=== PATIENT | female | born 1950 | race Caucasian/White ===

== ENCOUNTER → 2017-01-15 | Outpatient (CLI) | payer BC ==
[~2017-01-15] MED LIST: ATV5 PO; CPR500 PO; MRLP17X PO; ONDA4TAB65 SL; [UNRECOGNIZED DRUG - CODE] PO
--- NOTE | 2017-01-15 14:00 | MAMMOGRAPHY REPORT ---
BILATERAL DIGITAL DIAGNOSTIC MAMMOGRAM TOMOSYNTHESIS WITH CAD: 01/15/2017 CLINICAL HISTORY: Asymptomatic. Personal history of left breast cancer status post treatment. TECHNIQUE: Bilateral breast tomosynthesis in addition to standard 2D mammography was performed. Curr ent study was also evaluated with a Computer Aided Detection (CAD) system. COMPARISON: Comparison is made to exams dated: 01/14/2016 mammogram, 08/12/2015 mammogram, 01/04/2015 m ammogram, and 12/31/2012 mammogram - [facility]. BREAST COMPOSITION: There are scattered areas of fibroglandular density in both breasts. FINDINGS: 2 surgical clips project near the left pectoralis muscle on the MLO view, stable compared to prior exams and denoting the site of the patient's prior lumpectomy. There is a stable intramamm steve lymph node in the lateral left breast. No new suspicious mass, architectural distortion or clus ter of microcalcifications is seen bilaterally. IMPRESSION: ACR BI-RADS CATEGORY 2: BENIGN Stable bilateral mammograms, without mammographic evidence of malignancy. Annual bilateral mammogra phy is recommended in one year, and would recommend remaining a diagnostic patient, given the person al history of breast cancer, in case any additional mammographic views and/or ultrasound may be need ed. These results and recommendations were discussed with the patient at the time of the exam. Approximately 10% of breast cancers are not detected with mammography. A negative mammographic repor t should not delay biopsy if a clinically suggestive mass is present. Janny Maria M.D. ay/:01/15/2017 10:17:40 Sleep Technician: Tabitha MCCULLOUGH)(Andreina), [facility] letter sent: Normal 1/2 BI-RADS Code: ACR BI-RADS Category 2: Benign
== END | disposition home or self-care (01) ==
LOC: C.MAMM 08:50
PROVIDERS: ATTEND Obstetrics & Gynecology
DX: Z85.3 Personal history of malignant neoplasm of breast (principal)

== ENCOUNTER → 2017-07-25 | Outpatient (CLI) | payer OTHER, MEDICARE ==
[2017-07-25 11:14] LABS: BASO % 0.8 %; BASO ABS # 0.03 K/uL (0-0.2); COMPLETE YES; EOS % 1.8 %; HEMATOCRIT 39.8 % (37-47); IG% 0.3 %; LYMPH % 28.9 %; LYMPH ABS # 1.11 K/uL (1.2-3.4); MEAN CELL VOLUME 91.7 fL (80-100); MEAN CORPUSCULAR HEMOGLOBIN 30.6 pg (25-34); MEAN CORPUSCULAR HGB CONC 33.4 g/dl (32-36); MONO % 7.3 %; NEUT % 60.9 %; PLATELET COUNT 285 K/uL (130-400); RED BLOOD COUNT 4.34 M/uL (4.2-5.4); WHITE BLOOD COUNT 3.84 K/uL (4.8-10.8)
[2017-07-25 11:29] LABS: ALT/SGPT 20 U/L (12-78); AST/SGOT 10 U/L (15-37); BLOOD UREA NITROGEN 13 mg/dl (7-18); BUN/CREATININE RATIO 16.4 (10-20); CALCIUM 8.7 mg/dl (8.5-10.1); CARBON DIOXIDE 28 mmol/L (21-32); CHLORIDE 97 mmol/L (98-107); CREATININE 0.79 mg/dl (0.60-1.20); GLUCOSE 100 mg/dl (70-99); SODIUM 131 mmol/L (136-145)
[2017-07-25 11:39] LABS: ALB/GLOB RATIO 1.2 (0.9-2); ALKALINE PHOSPHATASE 99 U/L (45-117)
== END | disposition home or self-care (01) ==
LOC: C.LABBC 07:51
PROVIDERS: ATTEND Psychiatry & Neurology Neurology
DX: G50.0 Trigeminal neuralgia (principal)

== ENCOUNTER → 2017-08-30 | Outpatient (CLI) | payer OTHER, MEDICARE ==
[~2017-08-30] MED LIST changes: +IBUP-1450 PO
== END | disposition home or self-care (01) ==
LOC: C.LABBC 09:11
PROVIDERS: ATTEND Psychiatry & Neurology Neurology
DX: G50.0 Trigeminal neuralgia (principal)

== ENCOUNTER 2017-09-01 07:57 | Emergency (ER) | payer OTHER, MEDICARE ==
[~2017-09-01] VITALS: Ht 167.6 cm; Wt 82.0 kg
[~2017-09-01 07:57] MED LIST changes: -IBUP-1450 PO
[2017-09-01 08:01] VITALS: TEMP 36.8; Ht 167.6 cm; Wt 82.0 kg
[2017-09-01] MEDS ORDERED: NITROGLYCERIN 0.4 MG SL PER TAB CHARGE SL STA (08:13)
[2017-09-01] MEDS ORDERED: ASPIRIN 324 MG CHEW PO STA (08:13)
[2017-09-01] MEDS ORDERED: ALUMINUM/MAGNESIUM SUSP 30 ML UDC PO STA (08:46)
[2017-09-01] MEDS ORDERED: LIDOCAINE HCL 2% VISC SOLN 20 ML UDC PO STA (08:46)
--- NOTE | 2017-09-01 09:14 | DIAGNOSTIC IMAGING REPORT ---
CHEST 2 VIEWS ROUTINE CLINICAL HISTORY: chest pain dyspnea COMPARISON STUDY: March 2015 FINDINGS: The bones soft tissues and hemidiaphragms are normal. The cardiomediastinal silhouette is normal. The lungs are clear. The pulmonary vasculature is normal. IMPRESSION: Negative chest. The above report was generated using voice recognition software. It may contain grammatical, syntax or spelling errors. Electronically signed by: Primo Giles M.D. 09/01/2017 9:13 AM Dictated Date/Time: 09/01/2017 9:13 AM
[2017-09-01 09:18] LABS: BASO % 0.2 %; BASO ABS # 0.01 K/uL (0-0.2); COMPLETE YES; EOS % 0.2 %; HEMATOCRIT 37.3 % (37-47); IG% 0.3 %; LYMPH % 14.8 %; LYMPH ABS # 0.95 K/uL (1.2-3.4); MEAN CELL VOLUME 88.8 fL (80-100); MEAN CORPUSCULAR HEMOGLOBIN 31.4 pg (25-34); MEAN CORPUSCULAR HGB CONC 35.4 g/dl (32-36); MEAN PLATELET VOLUME 9.1 fL (7.4-10.4); MONO % 6.1 %; NEUT % 78.4 %; PLATELET COUNT 277 K/uL (130-400); WHITE BLOOD COUNT 6.41 K/uL (4.8-10.8)
[2017-09-01 09:31] LABS: PARTIAL THROMBOPLASTIN RATIO 1.1; PROTHROMBIN TIME (PATIENT) 10.7 SECONDS (9.0-12.0)
[2017-09-01 09:41] LABS: ALKALINE PHOSPHATASE 104 U/L (45-117); ALT/SGPT 18 U/L (12-78); AST/SGOT 15 U/L (15-37)
[2017-09-01] MEDS ORDERED: IBUPROFEN 600 MG TAB PO STA (11:09)
[2017-09-01] MEDS ORDERED: IBUP-1450 PO (11:11)
--- NOTE | 2017-09-01 11:11 | EMERGENCY ROOM VISIT NOTE ---
ED Visit Note First contact with patient: 08:02 67-year-old female with substernal chest pain was fully by Cristy huizar PA-C. Please see her note. I also independently evaluated the patient. The patient has reproducible pain on palpation over the midsternum. This is most consistent with costochondritis. Troponins and EKG are negative. I believe the patient is safe to return home. She was started on ibuprofen here and will continue that medication at home.
--- NOTE | 2017-09-01 11:13 | EMERGENCY ROOM VISIT NOTE ---
History First contact with patient: 08:02 Chief Complaint: CHEST PAIN Stated Complaint: CHEST PAINS Nursing Triage Summary: pt had sudden onset of chest pain non radiating starting yesterday at 1000 pain has been constant, nonradiating pt to Peptol Bismol pt is unable to explain pain denies n/v or sob History of Present Illness The patient is a 67 year old female who presents to the Emergency Room with complaints of substernal chest pain. The patient states she has abrupt onset of the pain yesterday at 10 AM. The patient states it has been mostly constant since that time. She rates it at a 5 out of 10. The patient denies any radiation of the pain. The patient denies any shortness of breath. The patient denies any nausea or vomiting. The patient denies any cough, fever or any upper respiratory symptoms. The patient denies any heart palpitations. The patient denies any recent leg pain. The patient denies any history of hypertension or hyperlipidemia. She is a nonsmoker. The patient does admit to history of pleuritic chest pain but this is different. The patient's father at age 56 and had multiple heart attacks and stroke prior to his . Review of Systems 10 system review was performed and was negative unless stated otherwise history of present illness. Past Medical/Surgical History Medical Problems: (1) Breast cancer (2) Nasima-Falcon virus infection (3) Mitral valve prolapse Social History Smoking Status: Never Smoker Alcohol Use: none Drug Use: none Marital Status: Housing Status: lives alone Occupation Status: retired Current/Historical Medications Scheduled Carbamazepine (Carbatrol ER), 300 MG PO TID Lorazepam (Ativan *), 0.5 MG PO Q6HR PRN Scheduled PRN Ondansetron Hcl (Zofran), 4 MG SL Q6HR PRN Physical Exam Vital Signs Date Time Temp Pulse Resp B/P (MAP) Pulse Ox O2 Delivery O2 Flow Rate FiO2 09/01/17 10:37 78 20 112/92 99 Room Air 09/01/17 09:18 85 18 134/57 99 Room Air 09/01/17 08:28 87 20 156/85 98 Room Air 09/01/17 08:06 79 09/01/17 08:01 36.8 84 20 166/102 98 Room Air Physical Exam GENERAL: 67-year-old white female appears in no acute distress. MENTAL Status: Alert and oriented 3. EYES: PERRLA. EOMs intact. EARS: Canals clear. TMs without fluid level noted. NECK: Supple, no lymphadenopathy noted. No carotid bruits noted. LUNGS: Clear auscultation without wheezes rales or rhonchi. CARDIAC: Regular rate and rhythm without murmur. Pulses is full and equal throughout. CHEST WALL: The patient does have some tenderness to palpation over the lower sternum at the area of her pain. Remainder chest wall is nontender. ABDOMEN: Positive bowel sounds all 4 quadrants. Soft, nontender to palpation without organomegaly or masses. NEURO:Cranial nerves two through 12 intact. Cerebellar function intact with [id number]. Fine motor intact with alternating finger motions. Medical Decision & Procedures ER Provider Diagnostic Interpretation: CHEST 2 VIEWS ROUTINE CLINICAL HISTORY: chest pain dyspnea COMPARISON STUDY: March 2015 FINDINGS: The bones soft tissues and hemidiaphragms are normal. The cardiomediastinal silhouette is normal. The lungs are clear. The pulmonary vasculature is normal. IMPRESSION: Negative chest. The above report was generated using voice recognition software. It may contain grammatical, syntax or spelling errors. Electronically signed by: Primo Giles M.D. 09/01/2017 9:13 AM Dictated Date/Time: 09/01/2017 9:13 AM Laboratory Results 09/01/17 08:10 Red Blood Count 4.20, Mean Corpuscular Volume 88.8, Mean Corpuscular Hemoglobin 31.4, Mean Corpuscular Hemoglobin Concent 35.4, Mean Platelet Volume 9.1, Neutrophils (%) (Auto) 78.4, Lymphocytes (%) (Auto) 14.8, Monocytes (%) (Auto) 6.1, Eosinophils (%) (Auto) 0.2, Basophils (%) (Auto) 0.2, Neutrophils # (Auto) 5.03, Lymphocytes # (Auto) 0.95, Monocytes # (Auto) 0.39, Eosinophils # (Auto) 0.01, Basophils # (Auto) 0.01 Test 09/01/17 08:10 09/01/17 10:10 White Blood Count 6.41 K/uL (4.8-10.8) Red Blood Count 4.20 M/uL (4.2-5.4) Hemoglobin 13.2 g/dL (12.0-16.0) Hematocrit 37.3 % (37-47) Mean Corpuscular Volume 88.8 fL (80-100) Mean Corpuscular Hemoglobin 31.4 pg (25-34) Mean Corpuscular Hemoglobin Concent 35.4 g/dl (32-36) Platelet Count 277 K/uL (130-400) Mean Platelet Volume 9.1 fL (7.4-10.4) Neutrophils (%) (Auto) 78.4 % Lymphocytes (%) (Auto) 14.8 % Monocytes (%) (Auto) 6.1 % Eosinophils (%) (Auto) 0.2 % Basophils (%) (Auto) 0.2 % Neutrophils # (Auto) 5.03 K/uL (1.4-6.5) Lymphocytes # (Auto) 0.95 K/uL (1.2-3.4) Monocytes # (Auto) 0.39 K/uL (0.11-0.59) Eosinophils # (Auto) 0.01 K/uL (0-0.5) Basophils # (Auto) 0.01 K/uL (0-0.2) RDW Standard Deviation 41.7 fL (36.4-46.3) RDW Coefficient of Variation 12.9 % (11.5-14.5) Immature Granulocyte % (Auto) 0.3 % Immature Granulocyte # (Auto) 0.02 K/uL (0.00-0.02) Prothrombin Time 10.7 SECONDS (9.0-12.0) Prothromb Time International Ratio 1.0 (0.9-1.1) Activated Partial Thromboplast Time 27.5 SECONDS (21.0-31.0) Partial Thromboplastin Ratio 1.1 D-Dimer 270 ug/L FEU (0-500) Total Bilirubin 0.4 mg/dl (0.2-1) Direct Bilirubin < 0.1 mg/dl (0-0.2) Aspartate Amino Transf (AST/SGOT) 15 U/L (15-37) Alanine Aminotransferase (ALT/SGPT) 18 U/L (12-78) Alkaline Phosphatase 104 U/L (45-117) Total Creatine Kinase 61 U/L (26-192) Creatine Kinase MB 0.6 ng/ml (0.5-3.6) Creatine Kinase MB Ratio 1.0 (0-3.0) Pro-B-Type Natriuretic Peptide 178 pg/ml (0-900) Total Protein 7.3 gm/dl (6.4-8.2) Albumin 4.0 gm/dl (3.4-5.0) Lipase 131 U/L (73-393) Troponin I < 0.015 ng/ml (0-0.045) Medications Administered Medications (Trade) Dose Ordered Sig/Johana Route Start Time Stop Time Status Last Admin Dose Admin Aspirin (Aspirin Chew) 324 mg NOW STAT PO 09/01/17 08:13 09/01/17 08:20 DC 09/01/17 08:26 324 MG Nitroglycerin (Nitrostat Tab) 0.4 mg NOW STAT SL 09/01/17 08:13 09/01/17 08:20 DC 09/01/17 08:13 0.4 MG Al Hydroxide/Mg Hydroxide (Maalox Susp) 30 ml NOW STAT PO 09/01/17 08:46 09/01/17 08:48 DC 09/01/17 09:15 30 ML ED Course EMR and medication list were reviewed. IV access was obtained. The patient was placed on a monitor and continuous pulse ox. The patient was given 324 mg of aspirin and nitroglycerin 0.4 mg sublingual. The patient did not have relief of her pain but refused any additional nitroglycerin. The patient was then given Maalox by mouth. She states she is allergic to dental lidocaine. CBC and differential, coags, CK-MB, renal profile, LFTs and lipase levels, urinalysis, troponin, d-dimer was ordered. Chest x-ray was ordered and interpreted by the radiologist and myself as above. EKG was ordered and interpreted as above without any acute findings. The patient states that she had a lab drawn yesterday for her Carbatrol level. She wants to know the level. He looked it up in the EMR and it was 10.4 which were within normal limits. Gen. reviewed and were within normal limits. Troponin 2 were normal. The patient still was in pain on reevaluation and therefore was given Motrin 600 mg by mouth. The patient was independently evaluated by Dr. Myers who agree with treatment plan. The patient was discharged home in stable condition with a friend driving. Medical Decision Differential diagnosis include costochondritis, PE, pneumonia, pleuritic chest pain, [place], bronchitis [place] Drug Monitoring Program Search Results: patient reviewed within database Medication Reconcilliation Current Medication List: was personally reviewed by me Blood Pressure Screening Patient's blood pressure: Normal blood pressure Impression Primary Impression: Acute costochondritis Departure Information Dispostion Home / Self-Care Condition GOOD Prescriptions Ibuprofen (MOTRIN) 600 Mg Tab 600 MG PO Q6H Y for Pain, #30 TAB TAKE WITH FOOD Prov: Eneida Giles PA-C 09/01/17 Referrals Padmini HewittD.ODebbie (PCP) Forms Call Back Authorization, HOME CARE DOCUMENTATION FORM, IMPORTANT VISIT INFORMATION Patient Instructions ED Chest Pain Costochondritis, [facility] Additional Instructions Take ibuprofen 600 mg every 6 hours with food for pain. May try warm compresses intermittently to affected area. Avoid any strenuous lifting with her upper body until symptoms have resolved. Follow-up with your family doctor in 3-4 days for recheck. If symptoms worsen in the interim, return to ER. If he would experience any severe chest pain, numbness and tingling in extremities , jaw pain, shortness of breath call 911.
[2017-09-01 11:26] VITALS: BP 126/72; PULSE 95; O2SAT 98
== END 2017-09-01 11:28 | disposition home or self-care (01) ==
LOC: C.ED 07:59 → C.EDA 11:28
DX: M94.0 Chondrocostal junction syndrome [Tietze] (principal); I34.1 Nonrheumatic mitral (valve) prolapse; Z85.3 Personal history of malignant neoplasm of breast

== ENCOUNTER → 2017-12-05 | Outpatient (CLI) | payer OTHER, MEDICARE ==
[~2017-12-05] MED LIST changes: -CPR500 PO; +IBUP-1450 PO; -MRLP17X PO
--- NOTE | 2017-12-05 10:39 | DIAGNOSTIC IMAGING REPORT ---
R WRIST W/NAVICULAR MIN 3 VIEWS CLINICAL HISTORY: RIGHT WRIST PAIN TRAUMA ONE HALF MONTHS AGO COMPARISON: None. DISCUSSION: The bones and joint spaces appear intact. There is no evidence of fracture, dislocation or bony disease. 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 There are no erosive changes. IMPRESSION: 1. No acute fractures. 2. No erosive changes 3. 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 12/05/2017 10:38 AM Dictated Date/Time: 12/05/2017 10:37 AM
== END | disposition home or self-care (01) ==
LOC: C.RADBC 10:13
PROVIDERS: ATTEND Family Medicine
DX: S69.91XA Unspecified injury of right wrist, hand and finger(s), initial encounter (principal); X58.XXXA Exposure to other specified factors, initial encounter

== ENCOUNTER → 2018-02-08 | Outpatient (CLI) | payer OTHER, MEDICARE ==
--- NOTE | 2018-02-08 15:38 | MAMMOGRAPHY REPORT ---
BILATERAL DIGITAL DIAGNOSTIC MAMMOGRAM TOMOSYNTHESIS WITH CAD: 02/08/2018 CLINICAL HISTORY: Personal history of breast cancer. Asymptomatic. TECHNIQUE: Breast tomosynthesis in addition to standard 2D mammography was performed. Current study was also evaluated with a Computer Aided Detection (CAD) system. Bilateral CC and MLO 2D and tomosyn thesis images were obtained. COMPARISON: Comparison is made to exams dated: 01/15/2017 mammogram, 01/14/2016 mammogram, 08/12/2015 u ltrasound, 08/12/2015 mammogram, 01/04/2015 mammogram, and 01/01/2014 mammogram - [facility] enter. BREAST COMPOSITION: There are scattered areas of fibroglandular density in both breasts. FINDINGS: There are stable post surgical changes in the left superior breast from prior lumpectomy, w ith 2 surgical clips again noted in the left superior posterior breast. A linear scar marker denotes a scar on the left superior breast. There are no suspicious masses, calcifications, or areas of non surgical architectural distortion noted in either breast. There has been no significant interval brittny nge compared to prior exams. IMPRESSION: ACR BI-RADS CATEGORY 2: BENIGN There is no mammographic evidence of malignancy in either breast. A 1 year screening mammogram is rec ommended. The patient has been verbally notified of the results. Approximately 10% of breast cancers are not detected with mammography. A negative mammographic report should not delay biopsy if a clinically suggestive mass is present. Rosie Wells M.D. ah/:02/08/2018 09:48:30 Nurse Licensed Practical: Chantel VEGA(R)(M), [facility] letter sent: Normal 1/2 BI-RADS Code: ACR BI-RADS Category 2: Benign
== END | disposition home or self-care (01) ==
LOC: C.MAMM 09:09
PROVIDERS: ATTEND Obstetrics & Gynecology
DX: Z12.31 Encounter for screening mammogram for malignant neoplasm of breast (principal); Z85.3 Personal history of malignant neoplasm of breast

== ENCOUNTER 2018-03-20 13:10 | Emergency (ER) | payer OTHER, MEDICARE ==
[~2018-03-20] VITALS: Ht 167.6 cm; Wt 76.1 kg
[~2018-03-20 13:10] MED LIST changes: -IBUP-1450 PO
[2018-03-20 13:14] VITALS: TEMP 36.6; Ht 167.6 cm; Wt 76.1 kg
[2018-03-20] MEDS ORDERED: SODIUM CHLORIDE 0.9% 1000ML 1,000 ML IV STA (13:52)
[2018-03-20 15:10] LABS: BASO % 0.2 %; BASO ABS # 0.01 K/uL (0-0.2); EOS % 0.5 %; EOS ABS # 0.02 K/uL (0-0.5); HEMATOCRIT 36.1 % (37-47); HEMOGLOBIN 12.8 g/dL (12.0-16.0); IG# 0.01 K/uL (0.00-0.02); LYMPH % 19.4 %; LYMPH ABS # 0.84 K/uL (1.2-3.4); MEAN CORPUSCULAR HEMOGLOBIN 30.8 pg (25-34); MEAN CORPUSCULAR HGB CONC 35.5 g/dl (32-36); MEAN PLATELET VOLUME 8.9 fL (7.4-10.4); MONO % 8.1 %; MONO ABS # 0.35 K/uL (0.11-0.59); NEUT % 71.6 %; NEUT ABS # 3.09 K/uL (1.4-6.5); PLATELET COUNT 261 K/uL (130-400); RED CELL DISTRIBUTION WIDTH SD 42.1 fL (36.4-46.3); WHITE BLOOD COUNT 4.32 K/uL (4.8-10.8)
[2018-03-20 15:37] LABS: ALBUMIN 4.1 gm/dl (3.4-5.0); ALKALINE PHOSPHATASE 89 U/L (45-117); ALT/SGPT 20 U/L (12-78); AST/SGOT 12 U/L (15-37); BLOOD UREA NITROGEN 9 mg/dl (7-18); CALCIUM 9.2 mg/dl (8.5-10.1); CARBON DIOXIDE 27 mmol/L (21-32); CKMB < 0.5 ng/ml (0.5-3.6); CREATININE 0.77 mg/dl (0.60-1.20); GLUCOSE 92 mg/dl (70-99); POTASSIUM 4.1 mmol/L (3.5-5.1); SODIUM 128 mmol/L (136-145)
[2018-03-20] MEDS ORDERED: LORA-741 PO (15:47)
--- NOTE | 2018-03-20 16:11 | EMERGENCY ROOM VISIT NOTE ---
History First contact with patient: 13:33 Chief Complaint: REFERRED BY DOCTOR Stated Complaint: REFERRED BY DR LOW SODIUM History of Present Illness Patient is a 67-year-old female who presents to the emergency department from her primary care provider's office for evaluation of a low sodium level. Patient has a history of trigeminal neuralgia, she is on carbamazepine chronically for her trigeminal neuralgia. She is followed by Dr. Harper for this. Patient reports that for the last week she has been feeling a little off balance, nauseous" overall bad" she also notes that in the last 3-4 days her trigeminal neuralgia has begun to flare and she has increased her carbamazepine from 3 times daily to 4 times daily. She called to be seen by her primary care provider which could not happen until today, but she did have blood work performed yesterday and was told today that her sodium was low at 127. Her doctors wanted her to be admitted for monitoring because she reportedly lives alone. She does report some minor generalized headaches, she denies any lightheadedness, dizziness or vertigo, just feels a little bit off balance. She is complaining of left-sided facial pain due to her trigeminal neuralgia, states that she has not been able to eat well for the last couple of days because it hurts to chew. She denies any chest pain, palpitations, shortness of breath, cough or sputum production. She denies any cold or upper respiratory symptoms. No urinary symptoms. She notes some "prickling" into her bilateral upper extremities, but no weakness. She was seen by Dr. Hewitt and Dr. Mcclure this morning and referred to the ED for possible admission. Review of Systems Review of systems as per HPI. All other systems reviewed were negative. 10 systems reviewed. Past Medical/Surgical History Medical Problems: (1) Acute costochondritis (2) Breast cancer (3) Costochondritis (4) Nasima-Falcon virus infection (5) IBS (irritable bowel syndrome) (6) Mitral valve prolapse (7) Pleuritic chest pain (8) Trigeminal neuralgia of left side of face Surgical Problems: (1) Status post breast lumpectomy Electronic medical records are reviewed and summarized as above/below. See Problem List. Social History Smoking Status: Never Smoker Alcohol Use: none Drug Use: none Marital Status: Housing Status: lives alone Occupation Status: retired Current/Historical Medications Scheduled Carbamazepine (Carbatrol ER), 300 MG PO TID Lorazepam (Ativan), 0.5 MG PO Q6H Scheduled PRN Ondansetron Hcl (Zofran), 4 MG SL Q6HR PRN Physical Exam Vital Signs Date Time Temp Pulse Resp B/P (MAP) Pulse Ox O2 Delivery O2 Flow Rate FiO2 03/20/18 18:51 89 121/82 98 03/20/18 17:15 78 16 149/82 98 Room Air 03/20/18 15:23 73 03/20/18 15:13 75 120/73 100 Room Air 03/20/18 13:14 36.6 83 18 108/55 99 Room Air Physical Exam CONSTITUTIONAL: Patient is a well-appearing 67-year-old white female who is awake and alert and in no acute distress. EYES: Pupils equal, round, reactive to light and accommodation. EOMs intact without nystagmus. Sclera are anicteric. ENT: Tympanic membranes intact, with normal landmarks. External canals are clear. Oral and nasopharynx are clear. Mucous membranes are moist, no lesions , tongue and gums appear normal. NECK: No bruits auscultated. Supple without lymphadenopathy. No thyromegaly. No meningeal signs. Full active range of motion without discomfort. CARDIOVASCULAR: Regular rate and rhythm, with normal S1 and S2, no murmur or gallop or rub is heard. No carotid bruits auscultated. No JVD. Peripheral pulses easy to palpable. RESPIRATORY: Breath sounds equal and clear to auscultation without wheezes, rales, or rhonchi heard. Full and equal chest expansion without accessory muscle use or retractions. GI: Bowel sounds are present. Abdomen is soft, nontender, nondistended. No organomegaly. No pulsatile masses. No guarding or rebound. MUSCULOSKELETAL: Full range of motion of extremities x 4 with good strength. No cyanosis, edema, joint tenderness or swelling. No deformity. INTEGUMENTARY: No lesions or rash, normal skin turgor. NEUROLOGICAL: Alert, oriented, and cooperative. Cranial nerves, sensation and strength grossly intact. Negative pronator drift. Finger to nose, finger to finger and [id number] testing are normal. Normal gait. Upper and lower extremities DTRs are equal and symmetrical bilaterally. LYMPH: No lymphadenopathy. Medical Decision & Procedures Laboratory Results 03/20/18 14:30 Red Blood Count 4.15, Mean Corpuscular Volume 87.0, Mean Corpuscular Hemoglobin 30.8, Mean Corpuscular Hemoglobin Concent 35.5, Mean Platelet Volume 8.9, Neutrophils (%) (Auto) 71.6, Lymphocytes (%) (Auto) 19.4, Monocytes (%) (Auto) 8.1, Eosinophils (%) (Auto) 0.5, Basophils (%) (Auto) 0.2, Neutrophils # (Auto) 3.09, Lymphocytes # (Auto) 0.84, Monocytes # (Auto) 0.35, Eosinophils # (Auto) 0.02, Basophils # (Auto) 0.01 03/20/18 16:32 Test 03/20/18 00:00 03/20/18 14:30 03/20/18 16:32 03/20/18 17:34 Urine Color YELLOW Urine Appearance CLEAR (CLEAR) Urine pH 7.5 (4.5-7.5) Urine Specific [place] 1.014 (1.000-1.030) Urine Protein NEG (NEG) Urine Glucose (UA) NEG (NEG) Urine Ketones TRACE (NEG) Urine Occult Blood NEG (NEG) Urine Nitrite NEG (NEG) Urine Bilirubin NEG (NEG) Urine Urobilinogen NEG (NEG) Urine Leukocyte Esterase NEG (NEG) White Blood Count 4.32 K/uL (4.8-10.8) Red Blood Count 4.15 M/uL (4.2-5.4) Hemoglobin 12.8 g/dL (12.0-16.0) Hematocrit 36.1 % (37-47) Mean Corpuscular Volume 87.0 fL (80-100) Mean Corpuscular Hemoglobin 30.8 pg (25-34) Mean Corpuscular Hemoglobin Concent 35.5 g/dl (32-36) Platelet Count 261 K/uL (130-400) Mean Platelet Volume 8.9 fL (7.4-10.4) Neutrophils (%) (Auto) 71.6 % Lymphocytes (%) (Auto) 19.4 % Monocytes (%) (Auto) 8.1 % Eosinophils (%) (Auto) 0.5 % Basophils (%) (Auto) 0.2 % Neutrophils # (Auto) 3.09 K/uL (1.4-6.5) Lymphocytes # (Auto) 0.84 K/uL (1.2-3.4) Monocytes # (Auto) 0.35 K/uL (0.11-0.59) Eosinophils # (Auto) 0.02 K/uL (0-0.5) Basophils # (Auto) 0.01 K/uL (0-0.2) RDW Standard Deviation 42.1 fL (36.4-46.3) RDW Coefficient of Variation 13.0 % (11.5-14.5) Immature Granulocyte % (Auto) 0.2 % Immature Granulocyte # (Auto) 0.01 K/uL (0.00-0.02) Total Bilirubin 0.5 mg/dl (0.2-1) Aspartate Amino Transf (AST/SGOT) 12 U/L (15-37) Alanine Aminotransferase (ALT/SGPT) 20 U/L (12-78) Alkaline Phosphatase 89 U/L (45-117) Total Creatine Kinase 53 U/L (26-192) Creatine Kinase MB < 0.5 ng/ml (0.5-3.6) Creatine Kinase MB Ratio (0-3.0) Troponin I < 0.015 ng/ml (0-0.045) Total Protein 7.0 gm/dl (6.4-8.2) Albumin 4.1 gm/dl (3.4-5.0) Globulin 2.9 gm/dl (2.5-4.0) Albumin/Globulin Ratio 1.4 (0.9-2) Thyroid Stimulating Hormone (TSH) 2.160 uIu/ml (0.300-4.500) Anion Gap 7.0 mmol/L (3-11) Est Creatinine Clear Calc Drug Dose 77.9 ml/min Estimated GFR () 96.9 Estimated GFR (Non- 83.6 BUN/Creatinine Ratio 11.4 (10-20) Calcium Level 8.6 mg/dl (8.5-10.1) Carbamazepine (Tegretol) Level 10.1 mcg/ml (4-12) Medications Administered Medications (Trade) Dose Ordered Sig/Johana Route Start Time Stop Time Status Last Admin Dose Admin Sodium Chloride 1,000 ml @ 999 mls/hr Q1H1M STAT IV 03/20/18 13:52 03/20/18 14:52 DC 03/20/18 15:10 999 MLS/HR ECG Per My Interpretation Indication: other (hyponatremia) Rate (beats per minute): 70 Rhythm: normal sinus Findings: no acute ischemic change, no ectopy Change: no significant change ED Course Patient was seen and assessed as above. Her old records were reviewed. IV lock was initiated and laboratory studies were collected. She was given a liter bolus of normal saline solution. EKG was performed and was as noted above. CBC with differential, CMP, TSH and cardiac enzymes were drawn. Urinalysis was obtained. Patient history and presentation were reviewed with Dr. Nelson who also independently evaluated the patient and agreed with the ED workup. Laboratory studies noted a white count of 4300, no left shift or bandemia. H&H is 12.8 and 36.1. Sodium noted to be 128 today, potassium 4.1, chloride 95, carbon accent 27, BUN 9 and creatinine 0.77. Cardiac enzymes are negative. TSH is indicative of a euthyroid state. Urinalysis notes trace ketones only. Laboratory studies were reviewed with Dr. Nelson. Patient was reviewed with the restaurant floor manager, and discussed with Dr. Ruvalcaba with the [facility] Hospitalist [facility] for further care and evaluation. He requested a repeat sodium level after IVF, and a BMP was drawn. Repeat sodium was 129. Dr. Ruvalcaba evaluated the patient, and did not feel that her current presentation warranted admission/ observation, this was discussed with the patient and with Dr. Nelson. Please refer to his consultation for further details. I was able to discuss the patient and the situation with her primary care provider, Dr. Hewitt, who was in agreement, and will be able to see the patient in the office tomorrow afternoon for recheck. This was related to the patient, she expressed understanding, and was comfortable with the plan as outlined. She declined any additional treatment for her trigeminal neuralgia flare, stating most of them are not effective. She was discharged to home in stable condition. Medical Decision Differential diagnoses entertained included electrolyte/metabolic abnormality, arrhythmia, exacerbation of chronic pain syndrome, acute coronary syndrome, orthostasis, dehydration, among others. Medication Reconcilliation Current Medication List: was personally reviewed by me Blood Pressure Screening Patient's blood pressure: Normal blood pressure Blood pressure disposition: Did not require urgent referral Impression Primary Impression: Hyponatremia Departure Information Referrals Padmini HewittD.ODebbie (PCP) Patient Instructions My [facility] Additional Instructions Ibuprofen(Motrin, Advil) may be used for fever or pain. Use 600mg every six hours as needed. Take with food. Avoid using more than 2400mg in a 24 hour period. Do not use 2400mg per day for more than three consecutive days without physician direction. Prolonged inappropriate use can lead to stomach upset or ulcers. (AND/OR) Acetaminophen(Tylenol) may be used for fever or pain. Use 1000mg every six hours as needed. Avoid using more than 3000mg in a 24 hour period. Rest and drink plenty of fluids as tolerated. Continue current medications. Avoid strenuous activities. Return to the ER immediately for passing out, seizures, severe headache, uncontrolled pain, chest pain, abdominal pain, vomiting, fevers, difficulty breathing, worsening of your condition, or as needed. Follow up with Dr. Hewitt tomorrow. Call the office in the morning to schedule an appointment tomorrow afternoon for follow-up from the ED.
[2018-03-20] MEDS ORDERED: KETOROLAC TROMETHAMINE 15 MG/ML VIAL IV. STA (16:58)
[2018-03-20 17:33] LABS: CALCIUM 8.6 mg/dl (8.5-10.1); CREATININE 0.75 mg/dl (0.60-1.20); POTASSIUM 3.9 mmol/L (3.5-5.1)
--- NOTE | 2018-03-20 17:36 | Medical Consult ---
Consultation Date of Consultation: March 20, 2018. Attending Physician: History of Present Illness 67 y/o F Hx trigeminal neuralgia, breast CA, hyponatremia. The pt states she is having a flair of her trigeminal neuralgia this week. She takes Tegretol for this and apparently increased her dose from 300 to 400 mg. She also c/o feeling weak, nauseous and slightly off balance. The pt presented to her primary MD earlier in the day. Labs were drawn one day prior, revealing a sodium level of 127. A repeat sodium today returned at 128. She was sent into the hospital for further evaluation therefore. She denies CP, SOB, fevers or dysuria and is able to ambulate independently at the time of admission. On review of labs dating back to 2012, her current sodium level is not unprecedented, but does represent the lower end of her spectrum. The pt does state that the low Na has been tied to her Tegretol use, but she is unable to discontinue this medication as she does not have a good alternative for controlling her pain presently. Past Medical/Surgical History 1) Trigeminal neuralgia 2) Hyponatremia - states this is due to Tegretol use 3) Breast CA Family History Noncontributory Social History Smoking Status: Never Smoker Drug Use: none Marital Status: Housing Status: lives alone Occupation Status: retired Allergies Coded Allergies: Iodine (Verified Allergy, Intermediate, HIVES, 03/20/18) Epinephrine (Verified Allergy, Mild, 03/20/18) Antihistamines, Diphenhydramine-typ (Verified Allergy, Unknown, `TYPE UNSPECIFIED, BUT HAD PHENERGAN W/O PROBLEM, 03/20/18) ALLERGY TO ANTIHISTAMINES DESCRIBED CHEST TIGHTNESS AND OVERALL "STRANGE" SENSATION. HAD PHENERGAN WITHOUT PROB. Dicyclomine (Verified Allergy, Unknown, CRAMPS & NAUSEA, 03/20/18) Iodinated Contrast Media (Verified Allergy, Unknown, ., 03/20/18) Meperidine (Verified Allergy, Unknown, 03/20/18) Omeprazole (Verified Allergy, Unknown, 03/20/18) Procaine (Verified Allergy, Unknown, 03/20/18) Codeine (Verified Adverse Reaction, Mild, vomiting, 03/20/18) Fentanyl (Verified Adverse Reaction, Mild, DIZZY NAUSEA, 03/20/18) Amitriptyline (Verified Adverse Reaction, Unknown, numbness in feet and ill feeling, 03/20/18) Erythromycin (Verified Adverse Reaction, Unknown, N&V, 03/20/18) Sulfa Drugs (Verified Adverse Reaction, Unknown, N&V, 03/20/18) Uncoded Allergies: MUSCLERELAXANTS (Adverse Reaction, Mild, vomiting, 12/10/09) Review of Systems Constitutional: + weakness, No fever, No chills, No sweats Eyes: No worsening of vision ENT: No hearing loss, No unusual epistaxis, No nasal symptoms Respiratory: No cough, No sputum, No wheezing Cardiovascular: No chest pain, No orthopnea, No PND Abdomen: No pain, No nausea, No vomiting Musculoskeletal: No joint pain Genitourinary - Female: No dysuria, No urinary frequency, No urinary urgency Neurologic: + weakness, + problem reported (Reports being unsteady and lightheaded - facial neuralgia as above ), No memory loss, No paralysis Psychiatric: No depression symptoms Endocrine: No fatigue Hematologic / Lymphatic: No abnormal bleeding/bruising Integumentary: No rash Allergic / Immunologic: No environmental allergies Physical Exam Date Time Temp Pulse Resp B/P (MAP) Pulse Ox O2 Delivery O2 Flow Rate FiO2 03/20/18 15:23 73 03/20/18 15:13 75 120/73 100 Room Air 03/20/18 13:14 36.6 83 18 108/55 99 Room Air General Appearance: WD/WN, no apparent distress Head: normocephalic Eyes: normal inspection ENT: normal ENT inspection, pharynx normal Neck: supple, no JVD Respiratory/Chest: chest non-tender, lungs clear Cardiovascular: regular rate, rhythm, no edema Abdomen/GI: normal bowel sounds, non tender, soft Back: normal inspection, no CVA tenderness Extremities/Musculoskelatal: normal inspection, no calf tenderness, normal capillary refill Neurologic/Psych: gynecological assistant II-XII nml as tested, no motor/sensory deficits, alert, oriented x 3 Skin: normal color Laboratory Results Last 24 Hours Test 03/20/18 00:00 03/20/18 13:52 03/20/18 14:30 03/20/18 16:32 Urine Color YELLOW Urine Appearance CLEAR Urine pH 7.5 Urine Specific [place] 1.014 Urine Protein NEG Urine Glucose (UA) NEG Urine Ketones TRACE Urine Occult Blood NEG Urine Nitrite NEG Urine Bilirubin NEG Urine Urobilinogen NEG Urine Leukocyte Esterase NEG Creatine Kinase MB Ratio White Blood Count 4.32 K/uL Red Blood Count 4.15 M/uL Hemoglobin 12.8 g/dL Hematocrit 36.1 % Mean Corpuscular Volume 87.0 fL Mean Corpuscular Hemoglobin 30.8 pg Mean Corpuscular Hemoglobin Concent 35.5 g/dl Platelet Count 261 K/uL Mean Platelet Volume 8.9 fL Neutrophils (%) (Auto) 71.6 % Lymphocytes (%) (Auto) 19.4 % Monocytes (%) (Auto) 8.1 % Eosinophils (%) (Auto) 0.5 % Basophils (%) (Auto) 0.2 % Neutrophils # (Auto) 3.09 K/uL Lymphocytes # (Auto) 0.84 K/uL Monocytes # (Auto) 0.35 K/uL Eosinophils # (Auto) 0.02 K/uL Basophils # (Auto) 0.01 K/uL RDW Standard Deviation 42.1 fL RDW Coefficient of Variation 13.0 % Immature Granulocyte % (Auto) 0.2 % Immature Granulocyte # (Auto) 0.01 K/uL Sodium Level 128 mmol/L Potassium Level 4.1 mmol/L Chloride Level 95 mmol/L Carbon Dioxide Level 27 mmol/L Anion Gap 6.0 mmol/L Blood Urea Nitrogen 9 mg/dl Creatinine 0.77 mg/dl Est Creatinine Clear Calc Drug Dose 75.9 ml/min Estimated GFR () 93.9 Estimated GFR (Non- 81.0 BUN/Creatinine Ratio 12.3 Random Glucose 92 mg/dl Calcium Level 9.2 mg/dl Total Bilirubin 0.5 mg/dl Aspartate Amino Transf (AST/SGOT) 12 U/L Alanine Aminotransferase (ALT/SGPT) 20 U/L Alkaline Phosphatase 89 U/L Total Creatine Kinase 53 U/L Creatine Kinase MB < 0.5 ng/ml Troponin I < 0.015 ng/ml Total Protein 7.0 gm/dl Albumin 4.1 gm/dl Globulin 2.9 gm/dl Albumin/Globulin Ratio 1.4 Thyroid Stimulating Hormone (TSH) 2.160 uIu/ml Assessment & Plan 67 y/o F Hx trigeminal neuralgia, breast CA, hyponatremia. The pt states she is having a flair of her trigeminal neuralgia this week. She takes Tegretol for this and apparently increased her dose from 300 to 400 mg. She also c/o feeling weak, nauseous and slightly off balance. The pt presented to her primary MD earlier in the day. Labs were drawn one day prior, revealing a sodium level of 127. A repeat sodium today returned at 128. She was sent into the hospital for further evaluation therefore. She denies CP, SOB, fevers or dysuria and is able to ambulate independently at the time of admission. On review of labs dating back to 2012, her current sodium level is not unprecedented, but does represent the lower end of her spectrum. The pt does state that the low Na has been tied to her Tegretol use, but she is unable to discontinue this medication as she does not have a good alternative for controlling her pain presently. 1) Hyponatremia - this appears to be stable. It is unclear if it is related to any of her symptoms as an increase in her Tegretol may also cause her generalized weakness. We have provided her with a litre of IVF and are pending a repeat Na. It would not be unreasonable to treat her low Na if it is thought to be contributing to her symptoms going forward. Despite this, I do not believe she is in any imminent danger and should likely be discharged for additional workup and follow up with her primary MD. We will obtain a Tegretol level prior to departure. Clinically, there is less concern for significant toxicity. 2) Trigeminal neuralgia. The pt should return to her neurologist as she would be interested in trying a different medication. It may be that Tegretol is losing its effectivity and a higher dose would worsen her hyponatremia. Further consideration regarding disposition will be contingent on repeat labs and reassessment.
[2018-03-20 18:51] VITALS: BP 121/82; PULSE 89; O2SAT 98
== END 2018-03-20 18:45 | disposition home or self-care (01) ==
LOC: C.EDB 13:11
DX: E87.1 Hypo-osmolality and hyponatremia (principal); G50.0 Trigeminal neuralgia

== ENCOUNTER 2019-04-21 06:40 | Observation (INO) ==
--- NOTE | 2019-04-14 20:40 | PAT Medication Instructions ---
Medication Instructions Date of Service April 14, 2019 Home Medications carbamazepine [Carbatrol] 300 mg PO BID gabapentin 200 mg PO TID lorazepam 0.5 mg PO QID ondansetron 8 mg PO DIRECTED PRN bismuth subsalicylate [Pepto-Bismol] 524 mg PO UD PRN ibuprofen [Advil] 400 mg PO UD PRN ASK your surgeon for instructions ibuprofen [Advil] 400 mg PO UD PRN DO NOT take the morning of surgery carbamazepine [Carbatrol] 300 mg PO BID bismuth subsalicylate [Pepto-Bismol] 524 mg PO UD PRN Take morning of surgery With a small sip of water, OTHERWISE NOTHING TO EAT OR DRINK AFTER MIDNIGHT: gabapentin 200 mg PO TID lorazepam 0.5 mg PO QID ondansetron 8 mg PO DIRECTED PRN (if needed) Take evening before surgery carbamazepine [Carbatrol] 300 mg PO BID gabapentin 200 mg PO TID lorazepam 0.5 mg PO QID Other Notes If you have any questions please call us at [phone] or [phone] or [phone] or [phone]
--- NOTE | 2019-04-15 08:43 | Anesthesiology Consultation ---
Date of Service April 15, 2019 Assessment & Plan (1) Encounter for pre-operative examination: - Left limb restriction: Breast cancer s/p left breast lumpectomy with LND. - Patient concerned with facial positioning/movement perioperatively. She states trigeminal neuralgia flares with significant facial manipulation and requests care with intubation. Chart Review Chart Review: Acceptable Risk for Surgery and Patient seen in Pre Admission Testing Teaching & Discussion Pre-Anesthesia Teaching/Discussion Notes: Instructed NPO after midnight before surgery,except medications with 15 cc of water. Medication instructions provided according to the PAT guidelines. History Surgery Operation Date: 04/21/19 09:45 Proposed Procedures p Laparoscopic Cholecystectomy - Eliecer Luciano MD, FACS Height/Weight Height: 5 ft 5 in Weight: 73.3 kg Allergies Allergy/AdvReac Type Severity Reaction Status Date / Time meperidine Allergy Severe STOPPED Verified 04/14/19 09:51 BREATHING Iodinated Contrast- Oral and Allergy Unknown HIVES Verified 04/15/19 09:19 IV Dye amitriptyline AdvReac Unknown FEET Verified 04/14/19 09:51 NEUROPATHY, "ILL FEELING" baclofen AdvReac Unknown VOMITING, Verified 04/15/19 09:19 "FELT WEIRD" codeine AdvReac Unknown VOMITING Verified 04/14/19 09:51 dicyclomine AdvReac Unknown CRAMPS, Verified 04/14/19 09:51 NAUSEA diphenhydramine AdvReac Unknown HEART Verified 04/15/19 09:19 RACING epinephrine AdvReac Unknown HEART Verified 04/15/19 09:19 RACING erythromycin base AdvReac Unknown N&V Verified 04/14/19 09:51 fentanyl AdvReac Unknown DIZZINESS, Verified 04/14/19 09:51 NAUSEA omeprazole AdvReac Unknown VOMITING Verified 04/15/19 09:19 pregabalin [From Lyrica] AdvReac Unknown NAUSEA, Verified 04/15/19 09:19 "STRANGE SENSATION ALL OVER" procaine AdvReac Unknown HEART Verified 04/15/19 09:19 RACING Sulfa (Sulfonamide AdvReac Unknown N&V Verified 04/14/19 09:51 Antibiotics) MUSCLERELAXANTS AdvReac Mild VOMITING Uncoded 04/14/19 09:51 ANTIHISTAMINES AdvReac Unknown HEART Uncoded 04/15/19 09:19 RACING NARCOTICS AdvReac Unknown "CAN'T Uncoded 04/15/19 09:19 TOLERATE" Medications Home Medications Medication Instructions Recorded Confirmed Last Taken carbamazepine [Carbatrol] 300 mg PO BID 08/30/18 04/14/19 04/14/19 gabapentin 200 mg PO TID 08/30/18 04/14/19 04/14/19 lorazepam 0.5 mg PO QID 08/30/18 04/14/19 04/14/19 ondansetron 8 mg PO DIRECTED PRN 08/30/18 04/14/19 Unknown bismuth subsalicylate 524 mg PO UD PRN 04/14/19 04/14/19 Unknown [Pepto-Bismol] ibuprofen [Advil] 400 mg PO UD PRN 04/14/19 04/14/19 Unknown Past Medical History Medical History Anxiety Costochondritis 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 Patient reports cannot tolerate narcotics; states tolerates toradol for pain control. Patient reports that she has PONV-- request pretreatment if possible. History of PONV History of PONV and Hx of Motion Sickness Social History Smoking Status: Never smoker Do You Dip or Chew Tobacco: No Hx Alcohol Use: No Hx Substance Use: No substance use type: does not use Review of Systems Patient reports indigestion. Patient denies chest pain, shortness of breath, cough, wheezing. Physical Exam Vital Signs VITALS BP 111/73 P 73 TEMP 98.2 SP02 100%RA RESP 18 PHYSICAL Full neck and c-spine range of motion. Full TMJ range of motion. TMD 3 finger breaths Mallampati Score 3 Dentition: missing sides/molars, several crowns "all over" Lungs: clear throughout to auscultation Cardiac: regular rate and rhythm, I/ systolic murmur Spine: normal Carotid arteries: negative bruit Extremities: no edema Testing Laboratory Results 04/15/19 09:09 04/15/19 09:09 Electrocardiogram Date: 04/15/19 Findings: + NSR @ (68)
[2019-04-15 11:21] LABS: Basophils # (auto) 0.01 K/uL (0-0.2); Basophils % (auto) 0.2 %; Eosinophils # (auto) 0.05 K/uL (0-0.5); Eosinophils % (auto) 1.2 %; Hematocrit (blood only) 39.7 % (37-47); Hemoglobin 13.7 g/dL (12.0-16.0); Immature Granulocytes # (auto) 0.01 K/uL (0.00-0.02); Immature Granulocytes % (auto) 0.2 %; Lymphocytes # (auto) 1.09 K/uL (1.2-3.4); Lymphocytes % (auto) 26.5 %; Mean Corpuscular Hgb Conc 34.5 g/dL (32-36); Mean Corpuscular Volume 90.2 fL (80-100); Mean Platelet Volume 9.4 fL (7.4-10.4); Monocytes # (auto) 0.26 K/uL (0.11-0.59); Monocytes % (auto) 6.3 %; Neutrophils % (auto) 65.6 %; Platelet Count 273 K/uL (130-400); RDW Coefficient of Variation 13.3 % (11.5-14.5); RDW Standard Deviation 44.3 fL (36.4-46.3); White Blood Count 4.12 K/uL (4.8-10.8)
[2019-04-15 11:29] LABS: Alanine Aminotransferase 21 U/L (12-78); Aspartate Aminotransferase 11 U/L (15-37); BUN Creatinine Ratio 15.6 (10-20); Bilirubin Direct < 0.1 mg/dl (0-0.2); Blood Urea Nitrogen 12 mg/dl (7-18); Calcium 9.4 mg/dl (8.5-10.1); Carbon Dioxide 28 mmol/L (21-32); Chloride 99 mmol/L (98-107); Creatinine Clr Calc Pharmacy 68.4 ml/min; Est GFR (African American) 88.4; Est GFR (Non-African American) 76.3; Glucose 99 mg/dl (70-99); Potassium 4.4 mmol/L (3.5-5.1); Sodium 134 mmol/L (136-145)
[2019-04-15 11:32] LABS: Alkaline Phosphatase 96 U/L (45-117); Bilirubin,Total 0.2 mg/dl (0.2-1); Total Protein 7.2 gm/dl (6.4-8.2)
[~2019-04-21 06:40] MED LIST changes: -ATV5 PO; +LR 15ML/HR IV SCH; -ONDA4TAB65 SL; -[UNRECOGNIZED DRUG - CODE] PO; +cefUROXime 1,500 MG in DEXTROSE 5% 100 ML IV SCH
[2019-04-21] MEDS ORDERED: ONDANSETRON INJ 2 MG/ML 2 ML VIAL IV PRN ×2 (07:30→11:22)
[2019-04-21] MEDS ORDERED: HYDROmorphone INJ 1 MG/ML SYRINGE IV PRN (07:30)
[2019-04-21] MEDS ORDERED: ePHEDrine sulfate 50 MG/ML AMP IV PRN (07:30)
[2019-04-21] MEDS ORDERED: ATROPINE SULFATE 0.1 MG/ML 10ML SYR IV PRN (07:30)
[2019-04-21] MEDS ORDERED: fentaNYL citrate 100 MCG/2 ML VIAL ONE (07:41)
[2019-04-21] MEDS ORDERED: ROCURONIUM BROMIDE 10 MG/ML 5 ML VIAL ONE (07:41)
[2019-04-21] MEDS ORDERED: LIDOCAINE HCL 2% 2 ML VIAL/AMP(20MG/ML) INFIL ONE (07:41)
[2019-04-21] MEDS ORDERED: PROPOFOL IV EMULSION 10 MG/ML 20 ML VIAL IV ONE (07:41)
[2019-04-21] MEDS ORDERED: MIDAZOLAM HCL 1 MG/ML 2ML VIAL ONE (07:41)
[2019-04-21] MEDS ORDERED: BUPIVACAINE 0.5 % 5 MG/1 ML MPF 30ML VIAL ONE (08:17)
--- NOTE | 2019-04-21 08:18 | History & Physical Bridge Note ---
Date of Service April 21, 2019 History & Physical Bridge Note I have examined the patient, reviewed the History & Physical and in the interval since the performance of the History & Physical I have noted the following changes of clinical significance: no changes noted
[2019-04-21] MEDS ORDERED: ACETAMINOPHEN 1000 MG/100 ML IV IV ONE (08:25)
[2019-04-21] MEDS ORDERED: KETOROLAC 30 MG/ML VIAL ONE (09:11)
[2019-04-21] MEDS ORDERED: ONDANSETRON INJ 2 MG/ML 2 ML VIAL ONE (09:11)
[2019-04-21] MEDS ORDERED: DEXAMETHASONE SOD INJ 4 MG/ML VIAL ONE ×2 (09:11)
[2019-04-21] MEDS ORDERED: NEOSTIGMINE METHYLSULFATE 5 MG/5 ML SYR ONE (09:23)
[2019-04-21] MEDS ORDERED: GLYCOPYRROLATE 0.2 MG/ML VIAL ONE (09:23)
--- NOTE | 2019-04-21 09:25 | Operative Report ---
Post Operative Report Pre & Post Diagnosis Operation Date: 04/21/19 08:30 Pre-Op Diagnosis: Biliary Colic Post-Op Diagnosis: Biliary Colic, chronic cholecystitis, adhesions Procedure Operation Date: 04/21/19 08:30 Actual Procedures p Laparoscopic Cholecystectomy(Not Applicable) - Eliecer Luciano MD, FACS Surgeon Eliecer Luciano MD, FACS Counselor [facility] nurses, resident Estimated Blood Loss 10 Findings Consistent with Post-Op Diagnosis Specimens gallbladder Description of Procedure see dictation I attest to the content of the Intraoperative Record and any orders documented therein. Any exceptions are noted below.
[2019-04-21] MEDS ORDERED: ACETAMINOPHEN 1,000 MG/100 ML VIAL IV ONE (09:26)
[2019-04-21] MEDS: fentaNYL citrate 100 MCG/2 ML VIAL IV PRN ×2 (09:42→09:48)
--- NOTE | 2019-04-21 10:41 | Anesthesiology Progress Note ---
Date of Service April 21, 2019 Anesthesia Post Procedure Vital Signs Vital Signs: Temp Pulse Resp BP Pulse Ox 04/21/19 10:35 54 L 14 112/59 L 100 04/21/19 10:25 54 L 16 108/63 100 04/21/19 10:15 36.3 C L 55 L 15 111/64 100 04/21/19 10:05 36.3 C L 54 L 15 109/63 100 04/21/19 09:55 36.4 C L 57 L 19 106/47 L 100 04/21/19 09:45 36.4 C L 53 L 16 98/60 L 100 04/21/19 09:35 36.4 C L 86 16 117/78 100 04/21/19 07:36 36.9 C 78 16 126/72 99 Pain Intensity Abdomen: Pain Intensity: 5 Transfer of Care Handoff Completed per policy Notes Mental Status: alert / awake / arousable and participated in evaluation Patient Amnestic to Procedure: Yes Nausea / Vomiting: adequately controlled Pain: adequately controlled Airway Patency, RR, SpO2: stable & adequate BP & HR: stable & adequate Hydration State: stable & adequate Anesthetic Complications: no major complications apparent and Pt Satisfied with anesthetic care
[2019-04-21] MEDS ORDERED: ACETAMINOPHEN 1,000 MG/100 ML VIAL IV PRN (11:22)
[2019-04-21] MEDS ORDERED: IBUPROFEN 600 MG TAB PO PRN (11:22)
[2019-04-21] MEDS ORDERED: HYDROmorphone INJ 0.5 MG/0.5 ML SYR IV PRN (11:22)
[2019-04-21] MEDS ORDERED: ACETAMINOPHEN 325 MG TAB PO PRN (11:22)
[2019-04-21] MEDS ORDERED: PROMETHAZINE HCL 12.5 MG in SODIUM CHLORIDE 0.9% 50 ML IV PRN (11:22)
[2019-04-21] MEDS ORDERED: LACTATED RINGER'S 1,000 ML IV SCH (11:22)
[2019-04-21] MEDS ORDERED: TRAMADOL HCL 50 MG TABLET PO PRN (11:22)
[2019-04-21] MEDS ORDERED: PROMETHAZINE HCL 25 MG in SODIUM CHLORIDE 0.9% 50 ML IV PRN (11:22)
--- NOTE | 2019-04-21 12:26 | Operative Report ---
DATE OF OPERATION: 04/21/2019 NAME OF OPERATION: Laparoscopic cholecystectomy with lysis of adhesions. PREOPERATIVE DIAGNOSIS: Biliary colic. POSTOPERATIVE DIAGNOSES: Biliary colic with chronic cholecystitis and adhesions. STAFF SURGEON: Eliecer Luciano MD ANESTHESIA: General. DESCRIPTION OF PROCEDURE: The patient was brought in the operating room and placed on the operating table in supine position. Pneumatic stockings, orogastric tube were placed. Her abdomen was prepped and draped in usual fashion. 0.5% plain Marcaine was used to anesthetize the skin and subcutaneous tissue at all incisions. Incision was made above the umbilicus, carrying dissection down to the fascia, placing a Veress needle producing pneumoperitoneum. An 11 mm port placed at this level and then under visualization three 5 mm ports placed, 1 cephalad and 2 laterally. The gallbladder was distended. There were adhesions to the gallbladder of the omentum. These were taken down. There was scar tissue at the kamar hepatis. Dissection was carried out at the kaamr hepatis, identifying the cystic duct and cystic artery. These were clipped and transected. Then, the gallbladder was dissected away from the liver bed showing evidence of chronic scar tissue consistent with chronic cholecystitis. Gallbladder had multiple large stones. It was placed in an Endobag. After appropriate hemostasis and irrigation, the Endobag was removed through the umbilical site. I did have to enlarge the fascial defect because of the number of large stones. The fascia was closed at the umbilicus using interrupted 0 Vicryl suture and the skin reapproximated using subcuticular 4-0 Monocryl, Dermabond at the umbilicus and Steri-Strips at the other sites. Dressings applied and the patient transferred to recovery room in stable condition. I attest to the content of the Intraoperative Record and any orders documented therein. Any exception s are noted below.
[2019-04-21] MEDS: LORazepam 0.5 MG TAB PO PRN ×2 (13:01→20:11)
--- NOTE | 2019-04-21 13:39 | Hospitalist Consultation ---
Date of Consultation April 21, 2019 Assessment & Plan (1) Abdominal pain: s/p lap eva on 04/[address] Luciano Pre-op Hb 13.7 (2) Anxiety: continue home meds, states she takes lorazepam QID scheduled (3) IBS (irritable bowel syndrome): Stable, monitor (4) Trigeminal neuralgia of left side of face: continue home meds Pt states that the generic form of carbatrol has not been effective for her in the past She did bring several tabs of her home rx, but not in the bottle Advised that this could be sent down to pharmacy and likely verified based on appearance, but pt feels that she is to be d/c'd tomorrow and two doses of generic should be fine (5) Hyponatremia: Baseline 129-130 Was 134 on pre-op labs (6) DVT prophylaxis: As per Dr. Luciano History of Present Illness Reason for Consultation: Medical management Requesting Physician: Dr. Luciano Attending Physician: Eliecer Luciano MD, [facility] History of Present Illness 69 y/o F who was admitted on 04/21 s/p lap eva with Dr. Luciano. Pt is doing well post-op. Tolerating PO without issue. She does have some abd soreness and bloating related to the surgery, but she expects this. Pt denies fever, SOB, chest pain, n/v/c/d, LE swelling. Allergies Allergy/AdvReac Type Severity Reaction Status Date / Time meperidine Allergy Severe STOPPED Verified 04/21/19 07:13 BREATHING Iodinated Contrast- Oral and Allergy Unknown HIVES Verified 04/21/19 07:13 IV Dye amitriptyline AdvReac Unknown FEET Verified 04/21/19 07:13 NEUROPATHY, "ILL FEELING" baclofen AdvReac Unknown VOMITING, Verified 04/21/19 07:13 "FELT WEIRD" codeine AdvReac Unknown VOMITING Verified 04/21/19 07:13 dicyclomine AdvReac Unknown CRAMPS, Verified 04/21/19 07:13 NAUSEA diphenhydramine AdvReac Unknown HEART Verified 04/21/19 07:13 RACING epinephrine AdvReac Unknown HEART Verified 04/21/19 07:13 RACING erythromycin base AdvReac Unknown N&V Verified 04/21/19 07:13 fentanyl AdvReac Unknown DIZZINESS, Verified 04/21/19 07:13 NAUSEA omeprazole AdvReac Unknown VOMITING Verified 04/21/19 07:13 pregabalin [From Lyrica] AdvReac Unknown NAUSEA, Verified 04/21/19 07:13 "STRANGE SENSATION ALL OVER" procaine AdvReac Unknown HEART Verified 04/21/19 07:13 RACING Sulfa (Sulfonamide AdvReac Unknown N&V Verified 04/21/19 07:13 Antibiotics) MUSCLERELAXANTS AdvReac Mild VOMITING Uncoded 04/21/19 07:13 ANTIHISTAMINES AdvReac Unknown HEART Uncoded 04/21/19 07:13 RACING NARCOTICS AdvReac Unknown "CAN'T Uncoded 04/21/19 07:13 TOLERATE" Home Medications Home Medications Medication Instructions Recorded Confirmed Type carbamazepine [Carbatrol] 300 mg PO BID 08/30/18 04/21/19 History gabapentin 200 mg PO TID 08/30/18 04/21/19 History lorazepam 0.5 mg PO QID 08/30/18 04/21/19 History ondansetron 8 mg PO DIRECTED PRN 08/30/18 04/21/19 History bismuth subsalicylate 524 mg PO UD PRN 04/14/19 04/21/19 History [Pepto-Bismol] ibuprofen [Advil] 400 mg PO UD PRN 04/14/19 04/21/19 History tramadol 50 - 100 mg PO Q6H PRN #20 tab 04/21/19 Rx Patient History Medical History Anxiety Costochondritis 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 at 56 y/o. 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 Required: No Beliefs That Will Affect Care: Lutheran Lutheran Beliefs: CHURCH - LIKES VISIT FROM CLERGY Current Living Situation: Alone Other Information That Helps Us Care for You: Yes (REQUESTS PRIVATE ROOM) Feels Safe at Home: Yes Smoking Status: Never smoker Do You Dip or Chew Tobacco: No Hx Alcohol Use: No Hx Substance Use: No Review of Systems Review of Systems: Pertinent positives and negatives reviewed in HPI--all others negative Physical Exam Constitutional: WD/WN, vitals as above Eyes: normal visual olson by confrontation and + anicteric sclerae Neck: normal visual inspection and trachea midline Respiratory: normal respiratory effort, lungs clear to auscultation Cardiovascular: Rate/Rhythm: regular rate and regular rhythm Gastrointestinal (Abdomen): Inspection/Auscultation: + abdomen distended (mild) Percussion/Palpation: abdomen soft Musculoskeletal: Head/Neck/Chest: normocephalic and head atraumatic negative for edema, peripheral pulses intact Skin: no rashes, warm and dry Neurologic: awake; not confused Speech / Cognition: normal speech Psychiatric: A+Ox3, euthymic affect Results & Data Vital Signs (Past 12 Hours) Vital Signs Temp Pulse Resp BP Pulse Ox 04/21/19 12:52 59 L 18 116/72 97 04/21/19 11:50 36.4 C L 59 L 18 124/74 97 04/21/19 11:20 36.3 C L 59 L 18 124/71 97 04/21/19 10:50 36.3 C L 56 L 18 108/66 99 04/21/19 10:35 54 L 14 112/59 L 100 04/21/19 10:25 54 L 16 108/63 100 04/21/19 10:15 36.3 C L 55 L 15 111/64 100 04/21/19 10:05 36.3 C L 54 L 15 109/63 100 04/21/19 09:55 36.4 C L 57 L 19 106/47 L 100 04/21/19 09:45 36.4 C L 53 L 16 98/60 L 100 04/21/19 09:35 36.4 C L 86 16 117/78 100 04/21/19 07:36 36.9 C 78 16 126/72 99 PG Care Time/CCT Total # of Minutes Spent Total Time Spent with Patient: Total time spent is greater than 50% in coordination of care (as documented) at patient's floor/unit and/or counseling patient:
[2019-04-21] MEDS: GABAPENTIN 100 MG CAP PO SCH ×2 (14:24→20:11)
[2019-04-21] MEDS: KETOROLAC TROMETHAMINE 15 MG/ML VIAL IV PRN ×2 (14:27→21:11)
[2019-04-21] MEDS ORDERED: COUGH DROP (SUGAR FREE) LOZ 24 LOZ/1 BOX BUCCAL ONE (16:05)
[2019-04-21] MEDS ORDERED: NURSING DECISION MEDICATION ONE (16:38)
[2019-04-21] MEDS ORDERED: COUGH DROP (SUGAR FREE) LOZ 24 LOZ/1 BOX BUCCAL PRN (16:42)
[2019-04-21] MEDS: CARBAMAZEPINE 100 MG TABCR PO SCH (20:11)
[2019-04-22] MEDS: KETOROLAC TROMETHAMINE 15 MG/ML VIAL IV PRN ×2 (03:31→11:37)
[2019-04-22] MEDS: LORazepam 0.5 MG TAB PO PRN ×2 (03:39→11:44)
[2019-04-22] MEDS ORDERED: SIMETHICONE 80 MG CHEW PO ONE (07:30)
--- NOTE | 2019-04-22 08:05 | Anesthesiology Progress Note ---
Date of Service April 22, 2019 Anesthesia Post Procedure Vital Signs Vital Signs: Temp Pulse Pulse Pulse Resp BP Pulse Ox 04/22/19 07:15 36.7 C 66 16 99/64 L 98 04/22/19 04:52 36.7 C 72 16 92/56 L 96 04/22/19 03:14 36.8 C 76 16 95/57 L 96 04/21/19 22:57 36.8 C 75 16 98/58 L 97 04/21/19 19:20 36.9 C 78 12 118/80 96 04/21/19 15:43 37.0 C 78 17 102/65 97 04/21/19 13:50 79 18 116/69 97 04/21/19 12:52 59 L 18 116/72 97 04/21/19 11:50 36.4 C L 59 L 18 124/74 97 04/21/19 11:20 36.3 C L 59 L 18 124/71 97 04/21/19 10:50 36.3 C L 56 L 18 108/66 99 04/21/19 10:35 54 L 14 112/59 L 100 04/21/19 10:25 54 L 16 108/63 100 04/21/19 10:15 36.3 C L 55 L 15 111/64 100 04/21/19 10:05 36.3 C L 54 L 15 109/63 100 04/21/19 09:55 36.4 C L 57 L 19 106/47 L 100 04/21/19 09:45 36.4 C L 53 L 16 98/60 L 100 04/21/19 09:35 36.4 C L 86 16 117/78 100 Pain Intensity Abdomen: Pain Intensity: 4 Bilateral Shoulder: Pain Intensity: 8 Notes Mental Status: alert / awake / arousable Patient Amnestic to Procedure: Yes Nausea / Vomiting: adequately controlled Pain: adequately controlled Airway Patency, RR, SpO2: stable & adequate BP & HR: stable & adequate Hydration State: stable & adequate Anesthetic Complications: no major complications apparent and Pt Satisfied with anesthetic care
[2019-04-22] MEDS: GABAPENTIN 100 MG CAP PO SCH (08:26)
[2019-04-22] MEDS: CARBAMAZEPINE 100 MG TABCR PO SCH (08:26)
--- NOTE | 2019-04-25 08:53 | Discharge Summary ---
Date of Service April 25, 2019 Principal Diagnosis Biliary colic with chronic cholecystitis Discharge Exam Gastrointestinal (Abdomen) Inspection/Auscultation: + abdominal surgical incision (clean, dry) Percussion/Palpation: abdomen soft Discharge Data Allergies Allergy/AdvReac Type Severity Reaction Status Date / Time meperidine Allergy Severe STOPPED Verified 04/21/19 07:13 BREATHING Iodinated Contrast- Oral and Allergy Unknown HIVES Verified 04/21/19 07:13 IV Dye amitriptyline AdvReac Unknown FEET Verified 04/21/19 07:13 NEUROPATHY, "ILL FEELING" baclofen AdvReac Unknown VOMITING, Verified 04/21/19 07:13 "FELT WEIRD" codeine AdvReac Unknown VOMITING Verified 04/21/19 07:13 dicyclomine AdvReac Unknown CRAMPS, Verified 04/21/19 07:13 NAUSEA diphenhydramine AdvReac Unknown HEART Verified 04/21/19 07:13 RACING epinephrine AdvReac Unknown HEART Verified 04/21/19 07:13 RACING erythromycin base AdvReac Unknown N&V Verified 04/21/19 07:13 fentanyl AdvReac Unknown DIZZINESS, Verified 04/21/19 07:13 NAUSEA omeprazole AdvReac Unknown VOMITING Verified 04/21/19 07:13 pregabalin [From Lyrica] AdvReac Unknown NAUSEA, Verified 04/21/19 07:13 "STRANGE SENSATION ALL OVER" procaine AdvReac Unknown HEART Verified 04/21/19 07:13 RACING Sulfa (Sulfonamide AdvReac Unknown N&V Verified 04/21/19 07:13 Antibiotics) MUSCLERELAXANTS AdvReac Mild VOMITING Uncoded 04/21/19 07:13 ANTIHISTAMINES AdvReac Unknown HEART Uncoded 04/21/19 07:13 RACING NARCOTICS AdvReac Unknown "CAN'T Uncoded 04/21/19 07:13 TOLERATE" Consultations 04/18/19 08:29 Consult Hospitalist Routine Procedures Performed Operation Date: 04/21/19 08:30 Actual Procedures p Laparoscopic Cholecystectomy(Not Applicable) - Eliecer Luciano MD, [facility] Hospital Course (1) Cholecystitis, chronic: 69 y/o female with biliary colic taken to the OR for elective cholecystectomy. The procedure was well tolerate, she was transferred to the surgical floor for overnight observation. The hospitalist service was consulted routinely. By the next morning she was tolerating diet and oral analgesics. Her abdominal exam was benign. She was stable for discharge. Total Time Total Time Spent Total Time Spent (In Minutes): 15 Discharge Plan Discharge Items Patient Disposition: Home - Self-Care Reason For Visit: Cholelithiasis Discharge Diagnosis: chronic cholecystitis Discharge Goals: Decrease discomfort, Improve disease control and Improve function Activity: As commented below Activity Comment: light activity for 3 weeks Lifting: No more than 25 pounds Bathing Comment: may shower Sexual Activity: When tolerated Exercise Comment: wait 3 weeks Driving/Machine Use: Resume 3 days after discharge Non-emergency contact: Primary Care Provider and Surgeon Call non-emergency contact if: your pain is not controlled, your temperature is above 101 and your wound has increased drainage Follow-up/Referrals: Padmini Hewitt DO [Primary Care Provider] - Diet: Regular Addtl Provider Instructions: SPECIAL CARE INSTRUCTIONS: * Cover incisions and change daily for comfort/drainage. May leave uncovered with dermabond * Leave steri strips in place * May use ibuprofen for pain as tolerated. Or Advil or Motrin- may take 600 mg 3-4 times per day as needed try to limit this dosing to 3-4 days- can upset stomach * Expect some swelling and bruising. Call your doctor if: * Temperature above 101 degrees * Pain not relieved by pain medicine ordered * There is increased drainage or redness from any incision * You have any unanswered questions or concerns [phone]. FOLLOW UP VISIT: If not already scheduled, please call the office for a follow-up visit. OFFICE PHONE NUMBER: Dr. Luciano Office for 2 weeks- check up- no sutures to remove Prescriptions: New tramadol 50 mg tablet 50 - 100 mg PO Q6H PRN (Reason: pain) Qty: 20 RF: 0 Continued ondansetron 8 mg tablet,disintegrating 8 mg PO DIRECTED PRN (Reason: Nausea) RF: 0 lorazepam 0.5 mg tablet 0.5 mg PO QID RF: 0 gabapentin 100 mg capsule 200 mg PO TID RF: 0 carbamazepine 200 mg capsule, ER multiphase 12 hr 300 mg PO BID RF: 0 bismuth subsalicylate [Pepto-Bismol] 262 mg/15 mL Suspension 524 mg PO UD PRN (Reason: IBS) RF: 0 ibuprofen [Advil] 200 mg Tablet 400 mg PO UD PRN (Reason: Headache) RF: 0 Stand-Alone Forms: [employer], [facility] [employer]/Other Patient Handouts: Cooking Tips Low Fat Discharge Orders: Discharge Order (Routine); Ordered 04/22/19 Ordered By: Eliecer Luciano Admission Data Admit Date/Time: 04/21/19 09:26 Attending Provider: Eliecer Luciano Admit Provider: Eliecer Luciano Primary Care Provider: Padmini Hewitt Other Providers: Dash Moreno Service: Surgical Services Other Interventions: Discharge Summary Assessment (RN) Last Done: 04/22/19 12:03 DC Date/Time DO NOT enter until pt leaves facility: 04/22/19 13:36
--- NOTE | 2019-04-25 11:52 | Discharge Summary ---
PRINCIPAL DIAGNOSIS: Chronic cholecystitis. PROCEDURES: The patient underwent laparoscopic cholecystectomy. HISTORY OF PRESENT ILLNESS: The patient is a 69-year-old female with recurrent right upper quadrant pain and gallstones. HOSPITAL COURSE: She was brought into the hospital on 04/21/2019 where she underwent laparoscopic cholecystectomy, which she tolerated very well and did well overnight and was felt stable for discharge home the next day to be followed in the surgical clinic within 1 week.
== END 2019-04-22 13:36 | disposition home or self-care (01) ==
LOC: 3W 06:40 → ASU 06:40

== ENCOUNTER 2020-03-08 17:36 | Inpatient (IN) ==
[2020-03-08] MEDS ORDERED: HYDROmorphone INJ 0.5 MG/0.5 ML SYR IV STA (19:08)
[2020-03-08] MEDS ORDERED: ONDANSETRON INJ 2 MG/ML 2 ML VIAL IV STA (19:08)
[2020-03-08] MEDS ORDERED: ACETAMINOPHEN 500 MG TAB PO STA (19:10)
[2020-03-08] MEDS ORDERED: SODIUM CHLORIDE 0.9% 500 ML IV SCH (19:15)
[2020-03-08 19:22] LABS: Appearance Urine Clear (Clear); Bacteria Urine Automated Negative (Negative); Bilirubin Urine Negative (Negative); Blood Urine Trace (Negative); Cast Urine Automated 0 /lpf (0-5); Epithelial Cell Urine Auto >30 /lpf (0-5); Glucose Urine UA Negative (Negative); Ketones Urine 3+ (Negative); Leukocyte Esterase Urine Trace (Negative); Nitrite Urine Negative (Negative); Specific Gravity Urine 1.022 (1.000-1.030); Urobilinogen Urine Negative (Negative); pH Urine >= 9.0 (4.5-7.5)
[2020-03-08 19:31] LABS: Protein Urine 2+ (Negative)
[2020-03-08 19:37] LABS: Color Urine Amber
[2020-03-08 19:38] LABS: Sulfosalicylic Acid Urine Positive (Negative)
[2020-03-08 19:59] LABS: Basophils # (auto) 0.01 K/uL (0-0.2); Basophils % (auto) 0.1 %; Hemoglobin 11.9 g/dL (12.0-16.0); Immature Granulocytes # (auto) 0.04 K/uL (0.00-0.02); Immature Granulocytes % (auto) 0.3 %; Lymphocytes # (auto) 0.39 K/uL (1.2-3.4); Lymphocytes % (auto) 2.5 %; Mean Corpuscular Hemoglobin 31.4 pg (25-34); Mean Corpuscular Volume 89.7 fL (80-100); Mean Platelet Volume 9.4 fL (7.4-10.4); Monocytes # (auto) 0.78 K/uL (0.11-0.59); Monocytes % (auto) 5.1 %; Neutrophils # (auto) 14.12 K/uL (1.4-6.5); Platelet Count 231 K/uL (130-400); RDW Coefficient of Variation 12.9 % (11.5-14.5); RDW Standard Deviation 42.3 fL (36.4-46.3); Red Blood Count 3.79 M/uL (4.2-5.4); White Blood Count 15.34 K/uL (4.8-10.8)
[2020-03-08] MEDS ORDERED: CIPROFLOXACIN / D5W 400 MG/200 ML BAG IV STA (20:00)
[2020-03-08] MEDS ORDERED: metroNIDAZOLE 500 MG/100 ML BAG IV STA (20:00)
[2020-03-08] MEDS: SODIUM CHLORIDE 0.9% 1000ML 1,000 ML IV SCH (20:06)
[2020-03-08 20:21] LABS: Alanine Aminotransferase 69 U/L (12-78); Albumin Level 3.5 gm/dl (3.4-5.0); BUN Creatinine Ratio 12.7 (10-20); Blood Urea Nitrogen 9 mg/dl (7-18); Calcium 8.5 mg/dl (8.5-10.1); Carbon Dioxide 23 mmol/L (21-32); Chloride 92 mmol/L (98-107); Est GFR (African American) 102.2; Est GFR (Non-African American) 88.1; Glucose 120 mg/dl (70-99); Lipase 128 U/L (73-393); Sodium 124 mmol/L (136-145)
[2020-03-08 20:25] LABS: Alkaline Phosphatase 121 U/L (45-117); Bilirubin,Total 1.2 mg/dl (0.2-1); Globulin 3.4 gm/dl (2.5-4.0); Total Protein 6.9 gm/dl (6.4-8.2)
--- NOTE | 2020-03-08 22:45 | CT Scan Report ---
CT abd pelvis oral con only CT DOSE: 495.68 mGy.cm HISTORY: Diverticulitis diverticulitis with fever TECHNIQUE: Multiaxial CT images of the abdomen and pelvis were performed following the use of oral co ntrast. A dose lowering technique was utilized adhering to the principles of ALARA. COMPARISON STUDY: 03/07/2020 FINDINGS: Minimal bibasilar dependent atelectasis. Small hiatal hernia demonstrated mild gastroesopha geal reflux. Liver spleen and pancreas remain unremarkable. Kidneys are negative for hydronephrosis. The upper abdominal bowel pattern remains unremarkable. The mid to distal descending colon as well as proximal to mid sigmoid colon shows evidence for progre ssive diverticulitis. There are bubbles immediately adjacent to the juncture of the descending and sigmoid colonic region. This is consistent with localized perforations with a probable developing phlegmon is type formation. A drainable fluid pocket is not appreciated. There is moderately progressive wall thickening of the components of the distal sigmoid as well as pr oximal to mid sigmoid. No significant free fluid within the pelvic cul-de-sac. Trace amount of air within the bladder presum ably secondary to a catheterization procedure. IMPRESSION: 1. Considerable progression of findings of acute diverticulitis involving the descending as well as p roximal to mid sigmoid colon. 2. Considerable progression of the pericolonic infiltrative change as well as wall thickening of thes e regions. 3. Extraluminal small air pockets medial and posterior to the colon consistent with walled off perfor ations. 4. Probable developing phlegmon formation given this appearance. 5. No evidence for true fluid abscess process at this time. 6. No evidence for nonobstructive bowel pattern. ACT 112: Negative or not required by law. The above report was generated using voice recognition software. It may contain grammatical, syntax or spelling errors. Electronically signed by: Primo Giles M.D. 03/08/2020 10:44 PM
[2020-03-08] MEDS ORDERED: ONDANSETRON INJ 2 MG/ML 2 ML VIAL ONE (22:51)
--- NOTE | 2020-03-08 23:39 | Emergency Department Note ---
History of Present Illness General Chief complaint: Illness Stated complaint: diverticulitis, FEVER Source: patient Mode of arrival: ambulatory Limitations: no limitations History of Present Illness Provider complaint: Worsening abdominal pain, nausea Maximum Pain Intensity: 4 This patient is a 69-year-old female who presents to the emergency department with complaints of worsening abdominal pain, nausea, dizziness. Patient states she was seen in the emergency department yesterday and diagnosed with diverticulitis after CT scan. She was sent home on p.o. Augmentin as she has had negative side effects of Flagyl in the past. Patient states she has been able to get 3 doses of Augmentin down over the last day and a half but has increasing abdominal pain. Patient is noted to have a fever at triage. She denies any blood in her stools but states she is constipated. Patient denies a ny chest pain, shortness of breath or cough. Home Medications Home Medications Medication Instructions Recorded Confirmed Type ondansetron 8 mg PO DIRECTED PRN 08/30/18 03/08/20 History lorazepam 0.5 mg tablet 0.5 mg PO QID PRN 07/04/19 03/08/20 History Carbatrol 200 mg capsule, extended 200 mg PO TID 30 Days #90 cap NS 02/25/20 03/08/20 Rx release gabapentin 300 mg capsule 600 mg PO TID #180 cap 02/25/20 03/08/20 Rx amoxicillin-pot clavulanate 1 tab PO BID #10 tab 03/07/20 03/08/20 Rx [Augmentin] naproxen 375 mg PO BID PRN 03/07/20 03/08/20 History polyethylene glycol 3350 [Miralax] 17 g PO DAILY PRN 03/07/20 03/08/20 History Allergies Allergy/AdvReac Type Severity Reaction Status Date / Time meperidine Allergy Severe STOPPED Verified 03/07/20 17:23 BREATHING Iodinated Contrast Media Allergy Unknown HIVES Verified 03/07/20 17:23 amitriptyline AdvReac Unknown FEET Verified 03/07/20 17:23 NEUROPATHY, "ILL FEELING" baclofen AdvReac Unknown VOMITING, Verified 03/07/20 17:23 "FELT WEIRD" codeine AdvReac Unknown VOMITING Verified 03/07/20 17:23 dicyclomine AdvReac Unknown CRAMPS, Verified 03/07/20 17:23 NAUSEA diphenhydramine AdvReac Unknown HEART Verified 03/07/20 17:23 RACING epinephrine AdvReac Unknown HEART Verified 03/07/20 17:23 RACING erythromycin base AdvReac Unknown N&V Verified 03/07/20 17:23 fentanyl AdvReac Unknown DIZZINESS, Verified 03/07/20 17:23 NAUSEA omeprazole AdvReac Unknown VOMITING Verified 03/07/20 17:23 pregabalin [From Lyrica] AdvReac Unknown NAUSEA, Verified 03/07/20 17:23 "STRANGE SENSATION ALL OVER" procaine AdvReac Unknown HEART Verified 03/07/20 17:23 RACING Sulfa (Sulfonamide AdvReac Unknown N&V Verified 03/07/20 17:23 Antibiotics) MUSCLERELAXANTS AdvReac Mild VOMITING Uncoded 03/07/20 17:23 ANTIHISTAMINES AdvReac Unknown HEART Uncoded 03/07/20 17:23 RACING NARCOTICS AdvReac Unknown "CAN'T Uncoded 03/07/20 17:23 TOLERATE" Past Med/Surg History Medical History Anxiety Costochondritis Hemangioma LIVER AND CUTANEOUS History of breast cancer LEFT History of Nasima-Falcon virus infection Hyponatremia CHRONIC FELT 2/2 CARBATROL IBS (irritable bowel syndrome) MVP (mitral valve prolapse) HX PER PATIENT; NO RECENT ECHO Trigeminal neuralgia of left side of face Surgical History History of colonoscopy History of lumpectomy of left breast + LND Family History Father , CVA in his 40s that lead to "heart problems". at 56 y/o. Stroke Social History Preferred Language: Khmer Communication Ability: Effective Dock Guard Required: No Beliefs That Will Affect Care: Mormon Mormon Beliefs: RESTORATIONISM - LIKES VISIT FROM CLERGY Current Living Situation: Alone Feels Safe at Home: Yes Smoking Status: Never smoker Hx Alcohol Use: No Hx Substance Use: No Review of Systems See HPI for pertinent positives & negatives. and A total of 10 systems reviewed and were otherwise negative Physical Exam Vital Signs Vital Signs - 24 hr 03/08/20 17:43 03/08/20 19:36 03/08/20 21:23 Temperature 38.3 C H 36.9 C Temperature Source Oral Oral Pulse Rate 107 H 89 Pulse Rate [Left Apical] 99 H Pulse Rate from SpO2 Sensor 90 Respiratory Rate 22 16 20 Respiratory Effort / Characteristics Non-Labored Respiratory Depth Normal Respiratory Pattern Regular Blood Pressure 129/83 118/59 L Blood Pressure [Right Arm] 122/75 Blood Pressure Mean 98 78 Blood Pressure Mean [Right Arm] 90 Blood Pressure Position Sitting Blood Pressure Position [Right Arm] Lying Pulse Oximetry 98 99 96 Oxygen Delivery Method Room Air Room Air Room Air Sepsis Recent Fever Within 48 Hours Yes Sepsis New/Unexplained Change in Mental Status No Sepsis Action Taken by Nursing No Action Required Vital signs reviewed. Noted to be febrile and tachycardic General: Well-appearing 69 yo female, in no significant distress. HEENT: No scleral icterus, PERRLA, neck supple. Atraumatic. Cardiovascular: Tachycardic and regular Pulmonary: Clear to auscultation bilaterally, normal work of breathing. Abdomen: Soft, nontender, nondistended, positive bowel sounds. Musculoskeletal: Atraumatic, no peripheral edema. Neurologic: Patient awake alert and oriented x 3 Skin: Warm, dry, no rash Course Administered Medications Sodium Chloride (Nss 1000ml) 1,000 mls @ 125 mls/hr IV .Q8H JEFF Stop: 04/07/20 19:14 Last Admin: 03/08/20 20:06 Dose: 125 mls/hr Documented by: [id number] Discontinued Medications Acetaminophen (Tylenol) 1,000 mg PO NOW STA Stop: 03/08/20 19:11 Last Admin: 03/08/20 20:05 Dose: 1,000 mg Documented by: [id number] Hydromorphone HCl (Dilaudid) 0.5 mg IV NOW STA Stop: 03/08/20 19:09 Last Admin: 03/08/20 20:05 Dose: 0.5 mg Documented by: [id number] Sodium Chloride (Nss) 500 mls @ 999 mls/hr IV .Q31M JEFF Stop: 03/08/20 19:45 Last Infusion: 03/08/20 21:40 Dose: 0 mls/hr Documented by: [id number] Admin: 03/08/20 20:41 Dose: 999 mls/hr Documented by: [id number] Ciprofloxacin (Cipro) 400 mg in 200 mls @ 200 mls/hr IV NOW STA Stop: 03/08/20 20:59 Last Infusion: 03/08/20 22:16 Dose: 0 mls/hr Documented by: [id number] Admin: 03/08/20 20:41 Dose: 200 mls/hr Documented by: [id number] Metronidazole (Flagyl) 500 mg in 100 mls @ 100 mls/hr IV NOW STA Stop: 03/08/20 20:59 Last Infusion: 03/08/20 22:17 Dose: 0 mls/hr Documented by: [id number] Admin: 03/08/20 21:26 Dose: 100 mls/hr Documented by: [id number] Ondansetron HCl (Zofran) 4 mg IV NOW STA Stop: 03/08/20 19:09 Last Admin: 03/08/20 20:05 Dose: 4 mg Documented by: [id number] Ondansetron HCl (Zofran) Confirm Administered Dose 4 mg .ROUTE .STK-MED ONE Stop: 03/08/20 22:52 Last Admin: 03/08/20 22:55 Dose: 4 mg Documented by: [id number] Medical Decision Making Differential Diagnosis Differential diagnosis: Cholelithiasis, cholecystitis, bowel obstruction, diverticulitis, pancreatitis, renal colic, appendicitis inflammatory bowel disease, gastritis, and peptic/gastric ulcer disease. Medical Records Attestation: I reviewed the patient's medical records. Home Medications Current Medication List: was personally reviewed by me Laboratory Data Attestation: I reviewed the patient's lab results. Result diagrams: 03/08/20 19:49 03/08/20 19:49 Lab Results 03/08/20 03/08/20 03/08/20 Range/Units 19:02 19:49 19:49 WBC 15.34 H (4.8-10.8) K/uL RBC 3.79 L (4.2-5.4) M/uL Hgb 11.9 L (12.0-16.0) g/dL Hct 34.0 L (37-47) % MCV 89.7 (80-100) fL MCH 31.4 (25-34) pg MCHC 35.0 (32-36) g/dL RDW Std Deviation 42.3 (36.4-46.3) fL RDW Coeff of Aguila 12.9 (11.5-14.5) % Plt Count 231 (130-400) K/uL MPV 9.4 (7.4-10.4) fL Immature Gran % (Auto) 0.3 % Neut % (Auto) 92.0 % Lymph % (Auto) 2.5 % Carver % (Auto) 5.1 % Eos % (Auto) 0.0 % Baso % (Auto) 0.1 % Immature Gran # (Auto) 0.04 H (0.00-0.02) K/uL Neut # (Auto) 14.12 H (1.4-6.5) K/uL Lymph # (Auto) 0.39 L (1.2-3.4) K/uL Carver # (Auto) 0.78 H (0.11-0.59) K/uL Eos # (Auto) 0.00 (0-0.5) K/uL Baso # (Auto) 0.01 (0-0.2) K/uL Sodium 124 L (136-145) mmol/L Potassium (3.5-5.1) mmol/L Chloride 92 L (98-107) mmol/L Carbon Dioxide 23 (21-32) mmol/L Anion Gap 9.0 (3-11) BUN 9 (7-18) mg/dl Creatinine 0.71 (0.6-1.2) mg/dl Est Cr Clr Drug Dosing Not Reportable Est GFR ( Amer) 102.2 Est GFR (Non-Af Amer) 88.1 BUN/Creatinine Ratio 12.7 (10-20) Glucose 120 H (70-99) mg/dl Lactate (0.4-2.0) mmol/L Calcium 8.5 (8.5-10.1) mg/dl Total Bilirubin 1.2 H D (0.2-1) mg/dl AST (15-37) U/L ALT 69 (12-78) U/L Alkaline Phosphatase 121 H (45-117) U/L Total Protein 6.9 (6.4-8.2) gm/dl Albumin 3.5 (3.4-5.0) gm/dl Globulin 3.4 (2.5-4.0) gm/dl Albumin/Globulin Ratio 1.0 (0.9-2) Lipase 128 (73-393) U/L Urine Color Jenni Urine Appearance Clear (Clear) Urine pH >= 9.0 H (4.5-7.5) Ur Specific [place] 1.022 (1.000-1.030) Urine Protein 2+ H (Negative) Urine Glucose (UA) Negative (Negative) Urine Ketones 3+ H (Negative) Urine Blood Trace H (Negative) Urine Nitrite Negative (Negative) Urine Bilirubin Negative (Negative) Urine Urobilinogen Negative (Negative) Ur Leukocyte Esterase Trace H (Negative) Urine WBC (Auto) 1-5 (0-5) /hpf Urine RBC (Auto) 10-30 H (0-4) /hpf U Hyaline Cast (Auto) 0 (0-5) /lpf U Epithel Cells (Auto) >30 H (0-5) /lpf Urine Bacteria (Auto) Negative (Negative) 03/08/20 Range/Units 19:49 WBC (4.8-10.8) K/uL RBC (4.2-5.4) M/uL Hgb (12.0-16.0) g/dL Hct (37-47) % MCV (80-100) fL MCH (25-34) pg MCHC (32-36) g/dL RDW Std Deviation (36.4-46.3) fL RDW Coeff of Aguila (11.5-14.5) % Plt Count (130-400) K/uL MPV (7.4-10.4) fL Immature Gran % (Auto) % Neut % (Auto) % Lymph % (Auto) % Carver % (Auto) % Eos % (Auto) % Baso % (Auto) % Immature Gran # (Auto) (0.00-0.02) K/uL Neut # (Auto) (1.4-6.5) K/uL Lymph # (Auto) (1.2-3.4) K/uL Carver # (Auto) (0.11-0.59) K/uL Eos # (Auto) (0-0.5) K/uL Baso # (Auto) (0-0.2) K/uL Sodium (136-145) mmol/L Potassium (3.5-5.1) mmol/L Chloride (98-107) mmol/L Carbon Dioxide (21-32) mmol/L Anion Gap (3-11) BUN (7-18) mg/dl Creatinine (0.6-1.2) mg/dl Est Cr Clr Drug Dosing Est GFR ( Amer) Est GFR (Non-Af Amer) BUN/Creatinine Ratio (10-20) Glucose (70-99) mg/dl Lactate 1.0 (0.4-2.0) mmol/L Calcium (8.5-10.1) mg/dl Total Bilirubin (0.2-1) mg/dl AST (15-37) U/L ALT (12-78) U/L Alkaline Phosphatase (45-117) U/L Total Protein (6.4-8.2) gm/dl Albumin (3.4-5.0) gm/dl Globulin (2.5-4.0) gm/dl Albumin/Globulin Ratio (0.9-2) Lipase (73-393) U/L Urine Color Urine Appearance (Clear) Urine pH (4.5-7.5) Ur Specific [place] (1.000-1.030) Urine Protein (Negative) Urine Glucose (UA) (Negative) Urine Ketones (Negative) Urine Blood (Negative) Urine Nitrite (Negative) Urine Bilirubin (Negative) Urine Urobilinogen (Negative) Ur Leukocyte Esterase (Negative) Urine WBC (Auto) (0-5) /hpf Urine RBC (Auto) (0-4) /hpf U Hyaline Cast (Auto) (0-5) /lpf U Epithel Cells (Auto) (0-5) /lpf Urine Bacteria (Auto) (Negative) Imaging Data Radiologist's Impression: CT abd pelvis oral con only CT DOSE: 495.68 mGy.cm HISTORY: Diverticulitis diverticulitis with fever TECHNIQUE: Multiaxial CT images of the abdomen and pelvis were performed following the use of oral contrast. A dose lowering technique was utilized adhering to the principles of ALARA. COMPARISON STUDY: 03/07/2020 FINDINGS: Minimal bibasilar dependent atelectasis. Small hiatal hernia demonstrated mild gastroesophageal reflux. Liver spleen and pancreas remain unremarkable. Kidneys are negative for hydronephrosis. The upper abdominal bowel pattern remains unremarkable. The mid to distal descending colon as well as proximal to mid sigmoid colon shows evidence for progressive diverticulitis. There are bubbles immediately adjacent to the juncture of the descending and sigmoid colonic region. This is consistent with localized perforations with a probable developing phlegmon is type formation. A drainable fluid pocket is not appreciated. There is moderately progressive wall thickening of the components of the distal sigmoid as well as proximal to mid sigmoid. No significant free fluid within the pelvic cul-de-sac. Trace amount of air within the bladder presumably secondary to a catheterization procedure. IMPRESSION: 1. Considerable progression of findings of acute diverticulitis involving the descending as well as proximal to mid sigmoid colon. 2. Considerable progression of the pericolonic infiltrative change as well as wall thickening of these regions. 3. Extraluminal small air pockets medial and posterior to the colon consistent with walled off perforations. 4. Probable developing phlegmon formation given this appearance. 5. No evidence for true fluid abscess process at this time. 6. No evidence for nonobstructive bowel pattern. ACT 112: Negative or not required by law. The above report was generated using voice recognition software. It may contain grammatical, syntax or spelling errors. Electronically signed by: Primo Giles M.D. 03/08/2020 10:44 PM Dictated: 03/08/202235 Transcribed: 03/08/202235 Blood Pressure Blood Pressure Findings: Normal blood pressure Blood Pressure Disposition: did not require urgent referral MDM Narrative An order for cardiac monitoring was placed and the patient is found to be in a sinus tachycardia at 103 bpm. This patient was evaluated and appeared to be in some discomfort. Patient is no maciej to be febrile and tachycardic. IV access was obtained and laboratory work was drawn. The patient was hydrated with normal saline solution. Patient was medicated with 0.5 mg of IV Dilaudid, 4 mg of IV Zofran x2. CT imaging of the abdomen was ordered with oral contrast as she has an IV allergy. Patient was medicated with IV Cipro and IV Flagyl. She was hemodynamically much improved after these interventions. Patient was given Tylenol [address] imaging of the abdomen pelvis reveals progressive diverticulitis with microperforations. There may be a developing phlegmon. I did speak with Dr. Broussard of the hospitalist service who is agreed to evaluate the patient for further ruby jackson. Wally Arzola PA-C of general surgery is aware of the patient for consultation. Patient is aware of the plan and agrees. Impression & Plan Diverticulitis of colon with perforation Discharge Plan Visit Data Chief Complaint: Illness Stated Complaint: diverticulitis, FEVER ED Provider: Savanna Silver Discharge Problem: Diverticulitis of colon with perforation Forms Stand Alone Forms: [facility] Prescriptions Prescriptions: No Action carbamazepine [Carbatrol] 200 mg capsule, ER multiphase 12 hr 200 mg PO TID 30 Days Qty: 90 RF: 5 gabapentin 300 mg capsule 600 mg PO TID Qty: 180 RF: 3 ondansetron 8 mg tablet,disintegrating 8 mg PO DIRECTED PRN (Reason: Nausea) RF: 0 lorazepam 0.5 mg tablet 0.5 mg PO QID PRN (Reason: Anxiety) RF: 0 polyethylene glycol 3350 [Miralax] 17 gram/dose Powder 17 g PO DAILY PRN (Reason: Constipation) RF: 0 naproxen 375 mg Tablet,Delayed Release (Dr/Ec) 375 mg PO BID PRN (Reason: Pain) RF: 0 amoxicillin-pot clavulanate [Augmentin] 875-125 mg tablet 1 tab PO BID Qty: 10 RF: 0 Discharge Problem: Diverticulitis of colon with perforation Qualifiers: Diverticulitis bleeding: without bleeding Qualified Code(s): K57.20 - Diverticulitis of large intestine with perforation and abscess without bleeding
--- NOTE | 2020-03-08 23:49 | History & Physical Report ---
Date of Service March 08, 2020 Assessment & Plan (1) Diverticulitis large intestine: Patient is a 69-year-old female with a past medical history of Chronic hyponatremia, diverticulitis, biliary colic, hemorrhoids, trigeminal neuralgia, IBS, history of breast cancer who presents for evaluation of abdominal pain. #Diverticulitis Patient's clinical exam, history, and imaging findings are all consistent with acute diverticulitis. She was initially diagnosed yesterday and sent home poorly tolerated the Augmentin and had worsening of her abdominal pain causing her to represent today. Today she rates her pain is a 6 out of 10, reporting normal bowel movements, mucoid in nature she had her most recent bowel movement earlier today. She reports tolerating her diet, and needing to "pure "her foods secondary to trigeminal neuralgia. General surgery was consulted and evaluated the patient in the ED already and is agreeing with our thoughts to proceed with medical management. Patient is not exhibiting any signs of rebound or guarding despite her impressive abdominal films. [facility] be [facility], given fluids, antibiotics, and made n.p.o. N.p.o. IV Cipro Flagyl -Maintenance IV fluids with normal saline -N.p.o. only ice may have meds -Consult general surgery -Zofran PRN for nausea -See orders for acute pain #Chronic hyponatremia Patient with a history of chronic hyponatremia being followed by Dr. Harper for that and trigeminal neuralgia. -Trend BMP -Monitor for neurological abnormalities #Trigeminal neuralgia Patient endorsing recent exacerbation of her trigeminal reports she did not take her medication this evening, is requesting a medication. -Continue home gabapentin -Continue Tegretol -Hold naproxen #Anxiety disorder Patient with a history of anxiety, on Lorazepam4 times daily PRN -Continue lorazepam FENa: N.p.o. Code Status: Full code DVT PPX: Lovenox PT/OT: Contraindicated Dispo: Pending clinical improvement Leonardo Broussard MD PGY 2, FCM This chart was completed utilizing Earnest voice recognition software. Grammatical errors, random word insertions, pronoun errors, and in complete sentences are an occasional consequence of the system. Any questions or concerns about the content, text, or information contained within the body of this dictation should be addressed directly to the physician for clarification. (2) Chronic hyponatremia: (3) Anxiety disorder: (4) Trigeminal neuralgia: History of Present Illness Patient is a 69-year-old female with a past medical history of Chronic hyponatremia, diverticulitis, biliary colic, hemorrhoids, trigeminal neuralgia, IBS, history of breast cancer who presents for evaluation of abdominal pain. Patient's abdominal pain began yesterday, she presented to the emergency department at that time where she was diagnosed with diverticulitis and discharged on Augmentin. She did well immediately following discharge but subsequently deteriorated with increasing lower abdominal pain. This caused a re-present today. She was evaluated in the emergency room this afternoon and repeat CT scan demonstrated progression of findings of acute diverticulitis including the descending as well as proximal to mid sigmoid colon, progression of pericolonic infiltrative change as well as wall thickening of the regions, extraluminal small air pockets medial and posterior to the colon consistent with walled off perforations, probable developing phlegmon formation given the appearance. Her laboratory findings are consistent with infection, white count 15 neutrophil predominance, hemoglobin 11.9, platelets 231, sodium 124, this is her usual range, chloride 92, glucose 120, AST and ALT within normal limits, bilirubin slightly elevated 1.2, urine did not indicate urinary tract infection. Based upon this patient's clinical history and physical exam findings general surgery was consulted as well as hospitalist team for admission. Patient will be admitted to the hospital for medical management of diverticulitis. Primary Care Provider: Padmini Hewitt DO Allergies Allergy/AdvReac Type Severity Reaction Status Date / Time meperidine Allergy Severe STOPPED Verified 03/07/20 17:23 BREATHING Iodinated Contrast Media Allergy Unknown HIVES Verified 03/07/20 17:23 amitriptyline AdvReac Unknown FEET Verified 03/07/20 17:23 NEUROPATHY, "ILL FEELING" baclofen AdvReac Unknown VOMITING, Verified 03/07/20 17:23 "FELT WEIRD" codeine AdvReac Unknown VOMITING Verified 03/07/20 17:23 dicyclomine AdvReac Unknown CRAMPS, Verified 03/07/20 17:23 NAUSEA diphenhydramine AdvReac Unknown HEART Verified 03/07/20 17:23 RACING epinephrine AdvReac Unknown HEART Verified 03/07/20 17:23 RACING erythromycin base AdvReac Unknown N&V Verified 03/07/20 17:23 fentanyl AdvReac Unknown DIZZINESS, Verified 03/07/20 17:23 NAUSEA omeprazole AdvReac Unknown VOMITING Verified 03/07/20 17:23 pregabalin [From Lyrica] AdvReac Unknown NAUSEA, Verified 03/07/20 17:23 "STRANGE SENSATION ALL OVER" procaine AdvReac Unknown HEART Verified 03/07/20 17:23 RACING Sulfa (Sulfonamide AdvReac Unknown N&V Verified 03/07/20 17:23 Antibiotics) MUSCLERELAXANTS AdvReac Mild VOMITING Uncoded 03/07/20 17:23 ANTIHISTAMINES AdvReac Unknown HEART Uncoded 03/07/20 17:23 RACING NARCOTICS AdvReac Unknown "CAN'T Uncoded 03/07/20 17:23 TOLERATE" Home Medications Home Medications Medication Instructions Recorded Confirmed Type ondansetron 8 mg PO DIRECTED PRN 08/30/18 03/08/20 History lorazepam 0.5 mg tablet 0.5 mg PO QID PRN 07/04/19 03/08/20 History Carbatrol 200 mg capsule, extended 200 mg PO TID 30 Days #90 cap NS 02/25/20 03/08/20 Rx release gabapentin 300 mg capsule 600 mg PO TID #180 cap 02/25/20 03/08/20 Rx amoxicillin-pot clavulanate 1 tab PO BID #10 tab 03/07/20 03/08/20 Rx [Augmentin] naproxen 375 mg PO BID PRN 03/07/20 03/08/20 History polyethylene glycol 3350 [Miralax] 17 g PO DAILY PRN 03/07/20 03/08/20 History Past Med/Surg History Medical History Anxiety Costochondritis Hemangioma LIVER AND CUTANEOUS History of breast cancer LEFT History of Nasima-Falcon virus infection Hyponatremia CHRONIC FELT 2/2 CARBATROL IBS (irritable bowel syndrome) MVP (mitral valve prolapse) HX PER PATIENT; NO RECENT ECHO Trigeminal neuralgia of left side of face Surgical History History of colonoscopy History of lumpectomy of left breast + LND Family History Father , CVA in his 40s that lead to "heart problems". at 56 y/o. Stroke Social History Preferred Language: Libyan Communication Ability: Effective Insulation Hoseman Required: No Beliefs That Will Affect Care: None Current Living Situation: Alone Other Information That Helps Us Care for You: No Feels Safe at Home: Yes Safety Concerns: Feels Safe At This Time Smoking Status: Never smoker Hx Alcohol Use: No Hx Substance Use: No Review of Systems Review of Systems: All systems reviewed & are unremarkable except as noted in HPI & below Physical Exam Physical Exam: General: Middle-aged female appearing her stated age, lying in bed endorsing abdominal pain HEENT: Normocephalic atraumatic Neck: Normal to visual inspection, trachea midline, negative JVD Cardiac: Regular rate and rhythm, normal S1, normal S2, I did not appreciate significant murmurs rubs or gallops, negative calf tenderness, negative pedal edema Respiratory: Clear to auscultation bilaterally without significant wheezes, rales, rhonchi GI: Bowel sounds present, normal, tender to palpation in the lower quadrants, nondistended, no rebound, no guarding MSK: Moves all extremities Skin: No rashes visible Neuro: Alert and oriented x4 Psych: Normal affect, cooperative Results & Data Results & Data ([facility]) Vital Signs (Past 12 Hours) Vital Signs Temp Pulse Pulse Resp BP BP Pulse Ox 03/08/20 21:23 89 20 118/59 L 96 03/08/20 19:36 36.9 C 99 H 16 122/75 99 03/08/20 17:43 38.3 C H 107 H 22 129/83 98 Laboratory Results 03/08/20 03/08/20 03/08/20 Range/Units 19:49 19:49 19:49 WBC 15.34 H (4.8-10.8) K/uL RBC 3.79 L (4.2-5.4) M/uL Hgb 11.9 L (12.0-16.0) g/dL Hct 34.0 L (37-47) % MCV 89.7 (80-100) fL MCH 31.4 (25-34) pg MCHC 35.0 (32-36) g/dL RDW Std Deviation 42.3 (36.4-46.3) fL RDW Coeff of Aguila 12.9 (11.5-14.5) % Plt Count 231 (130-400) K/uL MPV 9.4 (7.4-10.4) fL Immature Gran % (Auto) 0.3 % Neut % (Auto) 92.0 % Lymph % (Auto) 2.5 % Jackson % (Auto) 5.1 % Eos % (Auto) 0.0 % Baso % (Auto) 0.1 % Immature Gran # (Auto) 0.04 H (0.00-0.02) K/uL Neut # (Auto) 14.12 H (1.4-6.5) K/uL Lymph # (Auto) 0.39 L (1.2-3.4) K/uL Jackson # (Auto) 0.78 H (0.11-0.59) K/uL Eos # (Auto) 0.00 (0-0.5) K/uL Baso # (Auto) 0.01 (0-0.2) K/uL Sodium 124 L (136-145) mmol/L Potassium (3.5-5.1) mmol/L Chloride 92 L (98-107) mmol/L Carbon Dioxide 23 (21-32) mmol/L Anion Gap 9.0 (3-11) BUN 9 (7-18) mg/dl Creatinine 0.71 (0.6-1.2) mg/dl Est Cr Clr Drug Dosing Not Reportable Est GFR ( Amer) 102.2 Est GFR (Non-Af Amer) 88.1 BUN/Creatinine Ratio 12.7 (10-20) Glucose 120 H (70-99) mg/dl Lactate 1.0 (0.4-2.0) mmol/L Calcium 8.5 (8.5-10.1) mg/dl Total Bilirubin 1.2 H D (0.2-1) mg/dl AST (15-37) U/L ALT 69 (12-78) U/L Alkaline Phosphatase 121 H (45-117) U/L Total Protein 6.9 (6.4-8.2) gm/dl Albumin 3.5 (3.4-5.0) gm/dl Globulin 3.4 (2.5-4.0) gm/dl Albumin/Globulin Ratio 1.0 (0.9-2) Lipase 128 (73-393) U/L Urine Color Urine Appearance (Clear) Urine pH (4.5-7.5) Ur Specific [place] (1.000-1.030) Urine Protein (Negative) Urine Glucose (UA) (Negative) Urine Ketones (Negative) Urine Blood (Negative) Urine Nitrite (Negative) Urine Bilirubin (Negative) Urine Urobilinogen (Negative) Ur Leukocyte Esterase (Negative) Urine WBC (Auto) (0-5) /hpf Urine RBC (Auto) (0-4) /hpf U Hyaline Cast (Auto) (0-5) /lpf U Epithel Cells (Auto) (0-5) /lpf Urine Bacteria (Auto) (Negative) 03/08/20 Range/Units 19:02 WBC (4.8-10.8) K/uL RBC (4.2-5.4) M/uL Hgb (12.0-16.0) g/dL Hct (37-47) % MCV (80-100) fL MCH (25-34) pg MCHC (32-36) g/dL RDW Std Deviation (36.4-46.3) fL RDW Coeff of Aguila (11.5-14.5) % Plt Count (130-400) K/uL MPV (7.4-10.4) fL Immature Gran % (Auto) % Neut % (Auto) % Lymph % (Auto) % Jackson % (Auto) % Eos % (Auto) % Baso % (Auto) % Immature Gran # (Auto) (0.00-0.02) K/uL Neut # (Auto) (1.4-6.5) K/uL Lymph # (Auto) (1.2-3.4) K/uL Jackson # (Auto) (0.11-0.59) K/uL Eos # (Auto) (0-0.5) K/uL Baso # (Auto) (0-0.2) K/uL Sodium (136-145) mmol/L Potassium (3.5-5.1) mmol/L Chloride (98-107) mmol/L Carbon Dioxide (21-32) mmol/L Anion Gap (3-11) BUN (7-18) mg/dl Creatinine (0.6-1.2) mg/dl Est Cr Clr Drug Dosing Est GFR ( Amer) Est GFR (Non-Af Amer) BUN/Creatinine Ratio (10-20) Glucose (70-99) mg/dl Lactate (0.4-2.0) mmol/L Calcium (8.5-10.1) mg/dl Total Bilirubin (0.2-1) mg/dl AST (15-37) U/L ALT (12-78) U/L Alkaline Phosphatase (45-117) U/L Total Protein (6.4-8.2) gm/dl Albumin (3.4-5.0) gm/dl Globulin (2.5-4.0) gm/dl Albumin/Globulin Ratio (0.9-2) Lipase (73-393) U/L Urine Color Jneni Urine Appearance Clear (Clear) Urine pH >= 9.0 H (4.5-7.5) Ur Specific [place] 1.022 (1.000-1.030) Urine Protein 2+ H (Negative) Urine Glucose (UA) Negative (Negative) Urine Ketones 3+ H (Negative) Urine Blood Trace H (Negative) Urine Nitrite Negative (Negative) Urine Bilirubin Negative (Negative) Urine Urobilinogen Negative (Negative) Ur Leukocyte Esterase Trace H (Negative) Urine WBC (Auto) 1-5 (0-5) /hpf Urine RBC (Auto) 10-30 H (0-4) /hpf U Hyaline Cast (Auto) 0 (0-5) /lpf U Epithel Cells (Auto) >30 H (0-5) /lpf Urine Bacteria (Auto) Negative (Negative) Medications Administered Current Inpatient Medications Sodium Chloride (Nss 1000ml) 1,000 mls @ 125 mls/hr IV .Q8H JEFF Stop: 04/07/20 19:14 Last Admin: 03/08/20 20:06 Dose: 125 mls/hr Documented by: Code Status & VTE Plan Code Status full code Supervising Physician Co-Signing Physician Notes Patient seen and examined, chart reviewed, case discussed with Dr. Broussard and I agree with his assessment and plan as documented above. Briefly, patient is a 69yo C female with diverticulitis, failed outpatient treatment with Augmentin. She returns today with worsening abdominal pain as well as microperforations and pericolonic infiltrates and wall thickening. On exam she is afebrile, HD stable, in mild discomfort but no distress Skin - no rash HEENT - NC/AT, PERRl, EOMI, MMM Heart - +S1/S2, regular Lungs - CTA Abd - +BS, soft, ND, mildly tender with deep palpation but no rebound or guarding Ext - No edema Assessment/Plan: 69yo C female with acute diverticulitis, microperforations and progression of edema. Presently afebrile, HD stable, non-toxic in appearance, abdomen is soft, ND and mildly tender with no peritoneal signs. She has been evaluated by surgery. WIll proceed with medical management -Strict NPO -IV Cipro/Flagyl -Pain and nausea control -Monitor Na - patient with chronic hyponatremia, near baseline today, no neurological signs/symptoms -Appreciate Surgery assistance -Remainder of plan as above Resident Activity Tracking Resident Involvement: Resident Care Provided Care Provided: Adult Hospital Medicine (1) Diverticulitis large intestine Diverticulitis bleeding: with bleeding Diverticulitis complication: without perforation or abscess Qualified Code(s): K57.33 - Diverticulitis of large intestine without perforation or abscess with bleeding
--- NOTE | 2020-03-09 00:11 | Surgery Consultation ---
Date of Consultation March 09, 2020 Assessment & Plan (1) Diverticulitis of colon with perforation: -pt. admitted by medical service; plan discussed with them: -NPO status -IV antibiotics--cipro & flagyl planned -IVF for hydration -serial labs -it would be preferable to avoid surgery until acute process resolves; if clinical deterioration noted urgent surgical intervention may be required -discussed with Dr. Luciano History of Present Illness History of Present Illness 69 year old female was seen in the ED yesterday due to generalized abdominal pain. She had a non-contrast abdominal CT scan that showed diverticulitis of the descending colon. She was d/c home with oral antibiotics. Despite this intervention, she noted continued and worsening abdominal pain with no palliative factors. She notes fever as high as 102 and nausea/vomiting. She denies BRBPR or melena. She notes she has colonoscopies every 10 years, with the next one planned or 2022. Due to her progressive symptoms she returned to the ED. In the ED, she was afebrile, but leukocytosis of 15K was noted. A Ct scan of abdomen with oral contrast was done which showed progression of her diverticulitis with concern for developing phlegmon and wall off perforations. She has been given IV cipro and flagyl and has been admitted by the medical service. At the time of my exam she was not in distress. Allergies Allergy/AdvReac Type Severity Reaction Status Date / Time meperidine Allergy Severe STOPPED Verified 03/07/20 17:23 BREATHING Iodinated Contrast Media Allergy Unknown HIVES Verified 03/07/20 17:23 amitriptyline AdvReac Unknown FEET Verified 03/07/20 17:23 NEUROPATHY, "ILL FEELING" baclofen AdvReac Unknown VOMITING, Verified 03/07/20 17:23 "FELT WEIRD" codeine AdvReac Unknown VOMITING Verified 03/07/20 17:23 dicyclomine AdvReac Unknown CRAMPS, Verified 03/07/20 17:23 NAUSEA diphenhydramine AdvReac Unknown HEART Verified 03/07/20 17:23 RACING epinephrine AdvReac Unknown HEART Verified 03/07/20 17:23 RACING erythromycin base AdvReac Unknown N&V Verified 03/07/20 17:23 fentanyl AdvReac Unknown DIZZINESS, Verified 03/07/20 17:23 NAUSEA omeprazole AdvReac Unknown VOMITING Verified 03/07/20 17:23 pregabalin [From Lyrica] AdvReac Unknown NAUSEA, Verified 03/07/20 17:23 "STRANGE SENSATION ALL OVER" procaine AdvReac Unknown HEART Verified 03/07/20 17:23 RACING Sulfa (Sulfonamide AdvReac Unknown N&V Verified 03/07/20 17:23 Antibiotics) MUSCLERELAXANTS AdvReac Mild VOMITING Uncoded 03/07/20 17:23 ANTIHISTAMINES AdvReac Unknown HEART Uncoded 03/07/20 17:23 RACING NARCOTICS AdvReac Unknown "CAN'T Uncoded 03/07/20 17:23 TOLERATE" Home Medications Home Medications Medication Instructions Recorded Confirmed Type ondansetron 8 mg PO DIRECTED PRN 08/30/18 03/08/20 History lorazepam 0.5 mg tablet 0.5 mg PO QID PRN 07/04/19 03/08/20 History Carbatrol 200 mg capsule, extended 200 mg PO TID 30 Days #90 cap NS 02/25/20 03/08/20 Rx release gabapentin 300 mg capsule 600 mg PO TID #180 cap 02/25/20 03/08/20 Rx amoxicillin-pot clavulanate 1 tab PO BID #10 tab 03/07/20 03/08/20 Rx [Augmentin] naproxen 375 mg PO BID PRN 03/07/20 03/08/20 History polyethylene glycol 3350 [Miralax] 17 g PO DAILY PRN 03/07/20 03/08/20 History Patient History Medical History Anxiety Costochondritis Hemangioma LIVER AND CUTANEOUS History of breast cancer LEFT History of Nasima-Falcon virus infection Hyponatremia CHRONIC FELT 2/2 CARBATROL IBS (irritable bowel syndrome) MVP (mitral valve prolapse) HX PER PATIENT; NO RECENT ECHO Trigeminal neuralgia of left side of face Surgical History History of colonoscopy History of lumpectomy of left breast + LND Family History Father , CVA in his 40s that lead to "heart problems". at 56 y/o. Stroke Social History Preferred Language: Senegalese Communication Ability: Effective Supervisor Brine Required: No Beliefs That Will Affect Care: Restorationist Restorationist Beliefs: CONGREGATIONAL - LIKES VISIT FROM CLERGY Current Living Situation: Alone Feels Safe at Home: Yes Smoking Status: Never smoker Hx Alcohol Use: No Hx Substance Use: No Review of Systems Constitutional: + fever; no chills Eyes: no diplopia Ear, Nose, Mouth, Throat: no ear pain Respiratory: no cough and no dyspnea Cardiovascular: no chest pain Gastrointestinal: + nausea and + vomiting; no abdominal pain Genitourinary: no dysuria Musculoskeletal: no back pain Integumentary: no rash Neurologic: no localized weakness Physical Exam Constitutional: well developed and well nourished; no acute distress Eyes: no conjunctival abnormality ENMT: Ears: no hearing impairment Neck: trachea midline Respiratory: normal respiratory effort, lungs clear to auscultation Cardiovascular: Rate/Rhythm: regular rate and regular rhythm Gastrointestinal (Abdomen): slight distention noted; generalized abdominal pain noted with deep palpation, rebound tenderness noted; BS are hypoactive Musculoskeletal: no calf tenderness Skin: no rashes, warm and dry Neurologic: moves all extremities Psychiatric: Orientation: alert and oriented x 3 Affect: + anxious affect Results & Data Vital Signs (Past 12 Hours) Vital Signs Temp Pulse Pulse Resp BP BP Pulse Ox 03/08/20 21:23 89 20 118/59 L 96 03/08/20 19:36 36.9 C 99 H 16 122/75 99 03/08/20 17:43 38.3 C H 107 H 22 129/83 98 PG Care Time/CCT Total # of Minutes Spent Total Time Spent with Patient: Total time spent is greater than 50% in coordination of care (as documented) at patient's floor/unit and/or counseling patient: Coding Level of Care Code 24980 Inpt Consult Level 5 Diagnoses Diverticulitis of colon with perforation K57.20 Diverticulitis bleeding: without bleeding (1) Diverticulitis of colon with perforation Diverticulitis bleeding: without bleeding Qualified Code(s): K57.20 - D iverticulitis of large intestine with perforation and abscess without bleeding
[2020-03-09] MEDS ORDERED: PROCHLORPERAZINE 5 MG/ML 2 ML VIAL ONE (00:50)
[2020-03-09] MEDS ORDERED: PROCHLORPERAZINE 5 ML IV STA (00:52)
[2020-03-09] MEDS ORDERED: MoRPHine SULFATE 2 MG/ML CARP IV PRN ×2 (01:14)
[2020-03-09] MEDS ORDERED: MoRPHine SULFATE 4 MG/ML 1 ML CARP\\VIAL IV PRN (01:14)
[2020-03-09] MEDS ORDERED: LORazepam 0.5 MG TAB PO PRN (01:14)
[2020-03-09] MEDS: SODIUM CHLORIDE 0.9% 1000ML 1,000 ML IV SCH ×4 (01:16→23:11)
[2020-03-09 01:55] LABS: Basophils # (auto) 0.01 K/uL (0-0.2); Basophils % (auto) 0.1 %; Hematocrit (blood only) 31.2 % (37-47); Immature Granulocytes # (auto) 0.06 K/uL (0.00-0.02); Immature Granulocytes % (auto) 0.4 %; Lymphocytes % (auto) 3.5 %; Mean Corpuscular Hemoglobin 31.6 pg (25-34); Mean Corpuscular Hgb Conc 35.3 g/dL (32-36); Mean Corpuscular Volume 89.7 fL (80-100); Mean Platelet Volume 8.7 fL (7.4-10.4); Monocytes # (auto) 0.81 K/uL (0.11-0.59); Monocytes % (auto) 5.7 %; Neutrophils # (auto) 12.91 K/uL (1.4-6.5); Neutrophils % (auto) 90.3 %; Platelet Count 191 K/uL (130-400); RDW Coefficient of Variation 12.9 % (11.5-14.5); RDW Standard Deviation 42.3 fL (36.4-46.3); Red Blood Count 3.48 M/uL (4.2-5.4); White Blood Count 14.29 K/uL (4.8-10.8)
[2020-03-09] MEDS: ONDANSETRON INJ 2 MG/ML 2 ML VIAL IV PRN ×3 (01:56→20:58)
[2020-03-09 02:13] LABS: BUN Creatinine Ratio 14.5 (10-20); Blood Urea Nitrogen 8 mg/dl (7-18); Calcium 7.5 mg/dl (8.5-10.1); Carbon Dioxide 19 mmol/L (21-32); Chloride 97 mmol/L (98-107); Est GFR (African American) 111.8; Est GFR (Non-African American) 96.5; Glucose 152 mg/dl (70-99); Potassium 3.8 mmol/L (3.5-5.1); Sodium 125 mmol/L (136-145)
--- NOTE | 2020-03-09 03:19 | Billing Data ---
Date of Service March 09, 2020 Coding Level of Care Code 61491 Initial Inpt Care Lvl 3
[2020-03-09] MEDS: metroNIDAZOLE 500 MG/100 ML BAG IV SCH ×3 (05:18→22:53)
[2020-03-09 06:11] LABS: Basophils # (auto) 0.01 K/uL (0-0.2); Basophils % (auto) 0.1 %; Eosinophils # (auto) 0.01 K/uL (0-0.5); Eosinophils % (auto) 0.1 %; Hematocrit (blood only) 31.1 % (37-47); Hemoglobin 10.8 g/dL (12.0-16.0); Immature Granulocytes # (auto) 0.03 K/uL (0.00-0.02); Immature Granulocytes % (auto) 0.2 %; Lymphocytes # (auto) 0.62 K/uL (1.2-3.4); Lymphocytes % (auto) 4.7 %; Mean Corpuscular Hemoglobin 31.6 pg (25-34); Mean Corpuscular Hgb Conc 34.7 g/dL (32-36); Mean Corpuscular Volume 90.9 fL (80-100); Mean Platelet Volume 8.7 fL (7.4-10.4); Monocytes # (auto) 0.64 K/uL (0.11-0.59); Monocytes % (auto) 4.9 %; Neutrophils # (auto) 11.76 K/uL (1.4-6.5); Platelet Count 206 K/uL (130-400); RDW Coefficient of Variation 12.8 % (11.5-14.5); RDW Standard Deviation 43.1 fL (36.4-46.3); Red Blood Count 3.42 M/uL (4.2-5.4); White Blood Count 13.07 K/uL (4.8-10.8)
[2020-03-09 06:41] LABS: BUN Creatinine Ratio 10.9 (10-20); Calcium 7.7 mg/dl (8.5-10.1); Creatinine Clr Calc Pharmacy 89.7 ml/min; Est GFR (African American) 107.6; Est GFR (Non-African American) 92.8; Potassium 3.7 mmol/L (3.5-5.1)
[2020-03-09] MEDS ORDERED: GABAPENTIN 600 MG TAB PO SCH (09:00)
[2020-03-09] MEDS ORDERED: CARBAMAZEPINE 200 MG TABCR PO SCH ×2 (09:00)
[2020-03-09] MEDS: CIPROFLOXACIN / D5W 400 MG/200 ML BAG IV SCH ×2 (09:56→21:01)
[2020-03-09] MEDS: NON-FORMULARY PATIENT'S OWN MED PO SCH ×2 (10:43→16:51)
[2020-03-09] MEDS: GABAPENTIN 300 MG CAP PO SCH ×4 (10:43→16:51)
--- NOTE | 2020-03-09 10:52 | Neurology Consultation ---
Date of Consultation March 09, 2020 Assessment & Plan (1) Trigeminal neuralgia of left side of face: (2) Hyponatremia: (3) Anxiety disorder: Patient has a longstanding (since 2005) history of intermittent significant left facial pain, consistent with V3 (and V2) trigeminal neuralgia. She has been refractory to some medications and side effects to others. More recently she has had a progressive course with more pain and as of February 24 she was increased to her current Carbatrol ER and gabapentin doses. She is still experiencing pain. She has chronic hyponatremia from carbamazepine. It is typically been between 124 and 127, which does not give her any issues as far as I am aware. Patient will get nervous if it falls below 124, but she has tolerated the low 120s. She has a history of anxiety somewhat controlled with lorazepam. This is mostly a function of how much facial pain she is having. Currently she has diverticulitis with perforated bowel on IV antibiotics followed closely by hospitalist and surgical teams. Recommendations: 1. Continue Carbatrol ER (her own home medication) 200 milligrams 3 times a day. 2. Check a carbamazepine level-pending from today. 3. Increase gabapentin to 800 milligrams 3 times daily. The patient at home uses the 300 milligram capsules because the (600mg and 800 milligram) pills are large and harder to swallow. She could be given a total daily dose of 2400 milligrams gabapentin by using combination of the 300 milligram capsules. 4. I may consider other medications options as an outpatient (such as trying Lyrica again instead of gabapentin), but I am probably going to refer her to a Medical Center to get a surgical procedure (Gamma knife or other) for her trigeminal neuralgia, as medications seem to have failed overall. Overall, I spent a total of 70 minutes with this case including review of records, direct evaluation the patient at bedside, and discussing the case with the patient at bedside, her RN at bedside, and Dr. Montano, including differential diagnosis and treatment options. History of Present Illness Reason for Consultation: Patient is a 69-year-old, who I was asked to see at the request of Dr. Montano, for neurologic consultation regarding trigeminal neuralgia. Requesting Physician: Dr. Montano Attending Physician: Amparo Broussard, DO History of Present Illness I started seeing this patient in 2005 for trigeminal neuralgia issues on the left side. This all started around the time that she had left breast cancer diagnosed via lumpectomy post radiation to the chest. A lymph node apparently was unremarkable. Over the years, she has had a fluctuating course with her left facial pain which tended to be cheek and jaw line. Chewing, particularly during flare-ups, would be very difficult for her. Even talking a lot could trigger the face pain. They consist of sharp jolting pains that travel along the jaw. They can be quite intense. Over the years she has been on Carbatrol mainly at varying doses. She has tried Lyrica and gabapentin in the past with varying success and she had significant side effects to baclofen and topiramate. More recently she has been on gabapentin for a at least a year now because of increased pain. We had a telephone/tele health visit February 24 to discuss her case/pain. We decided to continue Carbatrol 200 milligrams 3 times a day and increase gabapentin to 600 milligrams 3 times a day. Although she has a history of irritable bowel syndrome, she has never had other GI side effects from these medications. She has had some weight gain on gabapentin probably. For the last 6 weeks she has been on pureed diet because she cannot chew (as it increases pain) She has had chronic hyponatremia from the carbamazepine. On March 07 she had acute right upper quadrant abdominal pain which took her to the emergency room. They sent her home on Augmentin and she returned the next day with worse pain. CT scan of the abdomen showed acute diverticulitis with perforation. She has been on intravenous metronidazole and ciprofloxacin since admission. She has been getting morphine IV intermittently for the pain. She is already on lorazepam 0.5 milligrams 4 times a day (listed as needed, but she generally takes this regularly since 2005). She has an anxiety disorder worsened by her pain. When I 1st saw her today, she had no left cheek or jaw pain on the left. After talking, she describes the pain as 3/10. With chewing it can be as much as 9/10. Allergies Allergy/AdvReac Type Severity Reaction Status Date / Time meperidine Allergy Severe STOPPED Verified 03/07/20 17:23 BREATHING Iodinated Contrast Media Allergy Unknown HIVES Verified 03/07/20 17:23 amitriptyline AdvReac Unknown FEET Verified 03/07/20 17:23 NEUROPATHY, "ILL FEELING" baclofen AdvReac Unknown VOMITING, Verified 03/07/20 17:23 "FELT WEIRD" codeine AdvReac Unknown VOMITING Verified 03/07/20 17:23 dicyclomine AdvReac Unknown CRAMPS, Verified 03/07/20 17:23 NAUSEA diphenhydramine AdvReac Unknown HEART Verified 03/07/20 17:23 RACING epinephrine AdvReac Unknown HEART Verified 03/07/20 17:23 RACING erythromycin base AdvReac Unknown N&V Verified 03/07/20 17:23 fentanyl AdvReac Unknown DIZZINESS, Verified 03/07/20 17:23 NAUSEA omeprazole AdvReac Unknown VOMITING Verified 03/07/20 17:23 pregabalin [From Lyrica] AdvReac Unknown NAUSEA, Verified 03/07/20 17:23 "STRANGE SENSATION ALL OVER" procaine AdvReac Unknown HEART Verified 03/07/20 17:23 RACING Sulfa (Sulfonamide AdvReac Unknown N&V Verified 03/07/20 17:23 Antibiotics) MUSCLERELAXANTS AdvReac Mild VOMITING Uncoded 03/07/20 17:23 ANTIHISTAMINES AdvReac Unknown HEART Uncoded 03/07/20 17:23 RACING NARCOTICS AdvReac Unknown "CAN'T Uncoded 03/07/20 17:23 TOLERATE" Home Medications Home Medications Medication Instructions Recorded Confirmed Type ondansetron 8 mg PO DIRECTED PRN 08/30/18 03/08/20 History lorazepam 0.5 mg tablet 0.5 mg PO QID PRN 07/04/19 03/08/20 History Carbatrol 200 mg capsule, extended 200 mg PO TID 30 Days #90 cap NS 02/25/20 03/08/20 Rx release gabapentin 300 mg capsule 600 mg PO TID #180 cap 02/25/20 03/08/20 Rx amoxicillin-pot clavulanate 1 tab PO BID #10 tab 03/07/20 03/08/20 Rx [Augmentin] naproxen 375 mg PO BID PRN 03/07/20 03/08/20 History polyethylene glycol 3350 [Miralax] 17 g PO DAILY PRN 03/07/20 03/08/20 History Patient History Medical History Anxiety Costochondritis Hemangioma LIVER AND CUTANEOUS History of breast cancer LEFT History of Nasima-Falcon virus infection Hyponatremia CHRONIC FELT 2/2 CARBATROL IBS (irritable bowel syndrome) MVP (mitral valve prolapse) HX PER PATIENT; NO RECENT ECHO Trigeminal neuralgia of left side of face Surgical History History of colonoscopy History of lumpectomy of left breast + LND S/P cholecystectomy April 2019 Family History Father , CVA in his 40s that lead to "heart problems". at 56 y/o. Stroke Mother , age 63 of ruptured aneurysm No problems noted. Social History Preferred Language: Upper Sorbian Communication Ability: Effective Promotions Coordinator Required: No Beliefs That Will Affect Care: None marital status: Single Current Living Situation: Alone current occupational status: retired Other Information That Helps Us Care for You: No Feels Safe at Home: Yes Safety Concerns: Feels Safe At This Time Smoking Status: Never smoker Hx Alcohol Use: No Hx Substance Use: No Review of Systems Constitutional: + fatigue and + weakness; no fever Eyes: no diplopia, no eye pain and no worsening vision Ear, Nose, Mouth, Throat: + facial pain; no ear pain, no tinnitus, no hearing loss, no dizziness, no hoarseness and no dysphagia Respiratory: no cough and no dyspnea Cardiovascular: no chest pain, no palpitations and no lightheadedness Gastrointestinal: + abdominal pain; no nausea and no vomiting Genitourinary: no dysuria, no urinary frequency and no urinary incontinence Musculoskeletal: no back pain, no neck pain, no radicular pain, no joint pain and no myalgia Integumentary: no rash and no lesions Neurologic: no gait abnormality, no localized weakness, no generalized weakness, no tingling, no numbness, no tremor(s), no abnormal movements, no headache(s), no abnormal speech, no confusion and no memory loss Psychiatric: + anxiety; no depression, no irritability, no difficulty concentrating, no confusion and no hallucinations Endocrine: + fatigue; no flushing Hematologic / Lymphatic: no easy bleeding and no easy bruising Allergy / Immunological: no urticaria and no problem reported Exam (Neuro) 2 Physical Exam: The patient is right-handed. The patient is awake, alert, and attentive. Speech is normal without any aphasia or dysarthria. She can name objects, repeat phrases, and has normal spontaneous speech. Mentation and thought processes are intact, with orientation to person, place and time, and normal fund of knowledge. Attention and concentration are normal. Mood is somewhat anxious and affect is appropriate. General appearance and grooming are normal. Short and long-term memory are intact. Pupils are 4 mm bilaterally and reactive to light. Extraocular eye muscles are intact without nystagmus. Visual acuity and visual olson seem normal grossly to confrontation. There are no deficits to sensation in the face in all 3 distributions of the fifth cranial nerve bilaterally. Corneal reflexes are positive bilaterally. Facial strength and symmetry was normal bilaterally. Hearing seems normal to whisper and finger rub bilaterally. Palate moves well without asymmetry. There is normal sternocleidomastoid and trapezius (shoulder shrug) strength bilaterally. Tongue is midline with good strength bilaterally. Neck has a full range of motion without discomfort. Cervical, thoracic, and lumbar spine are nontender to palpation. Gait is narrow based, with good arm swing, turns, and stance. With outstretched arms there is no drift. There are no resting, postural, or action tremors. There is no ataxia with finger to nose testing. There is good facility in the hands. No other abnormal involuntary movements are noted. Motor strength is 5/5 diffusely in the arms bilaterally including deltoids, biceps, triceps, brachioradialis, wrist flexors and extensors, soda room operator, and intrinsic hand muscles. Motor strength is 5/5 diffusely in the legs bilaterally including hip flexors, quadriceps, hamstrings, gastrocnemius, tibialis anterior, tibialis posterior, and Peroneii muscles. Toe extensors are normal and there is good bulk in the extensor digitorum brevis muscles bilaterally. The limbs have good tone without rigidity or spasticity. There is no atrophy noted in the muscles. Muscle bulk is normal, there is no tenderness to palpation , no myotonia to percussion, and no fasciculations seen. Sensory examination is intact to touch and pin throughout all 4 limbs diffusely. Reflexes are 2/4 in the biceps, triceps, brachioradialis, quadriceps, and Achilles tendons bilaterally. There is no clonus bilaterally. Toes are downgoing with plantar stimulation bilaterally. Peripheral pulses are present and of normal quality distally in all 4 limbs. There is no peripheral edema noted in the limbs. Results & Data ([facility]) Vital Signs (Past 12 Hours) Vital Signs Temp Pulse Resp BP BP Pulse Ox 03/09/20 07:13 36.7 C 78 16 100/61 98 03/09/20 01:30 36.3 C L 85 16 114/73 98 03/09/20 00:37 16 100/70 98 PG Care Time/CCT Total # of Minutes Spent Total Time Spent with Patient: Total time spent is greater than 50% in coordination of care (as documented) at patient's floor/unit and/or counseling patient: Coding Level of Care Code 44159 Initial Inpt Care Lvl 3 Diagnoses Trigeminal neuralgia of left side of face G50.0 Hyponatremia E87.1 Anxiety disorder F41.9
[2020-03-09] MEDS: KETOROLAC TROMETHAMINE 15 MG/ML VIAL IV PRN ×2 (11:23→20:58)
[2020-03-09] MEDS: LORazepam 0.5 MG TAB PO PRN ×3 (11:28→21:00)
[2020-03-09] MEDS ORDERED: LORazepam 0.5 MG TAB PO SCH (13:00)
[2020-03-09] MEDS ORDERED: GABAPENTIN 300 MG CAP PO SCH (14:00)
[2020-03-09] MEDS ORDERED: GABAPENTIN 800 MG TAB PO SCH (14:00)
--- NOTE | 2020-03-09 15:40 | Hospitalist Progress Note ---
Date of Service March 09, 2020 Assessment & Plan (1) Diverticulitis large intestine: Patient is a 69-year-old female with a past medical history of Chronic hyponatremia, trigeminal neuralgia, anxiety disorder, IBS, history of breast cancer who presents for evaluation of abdominal pain. Patient's clinical exam, history, and imaging findings are all consistent with acute diverticulitis. She was initially diagnosed the day prior to admission in ER and sent home w/ Augmentin- then had worsening of her abdominal pain causing her to return to ER. CT abd/pel with po con only with: "Considerable progression of findings of acute diverticulitis involving the descending as well as proximal to mid sigmoid colon. 2. Considerable progression of the pericolonic infiltrative change as well as wall thickening of these regions. 3. Extraluminal small air pockets medial and posterior to the colon consistent with walled off perforations. 4. Probable developing phlegmon formation given this appearance. 5. No evidence for true fluid abscess process at this time. 6. No evidence for nonobstructive bowel pattern." Stable today, leukocytosis improving down to 13k, pain slightly improved, had fever overnight, some loose stools from po contrast today continue NPO status Appreciate Surgery consult-conservative management for now continue IV Cipro and Flagyl -continue Maintenance IV fluids with normal saline -Zofran PRN for nausea -morphine prn pain , toradol prn -follow CBC, CMP -if worsens clinically or persistent leukocytosis, fevers, would re-image abdomen (2) Chronic hyponatremia: Patient with a history of chronic hyponatremia being followed by Dr. Harper for that and trigeminal neuralgia. Secondary to Carbatrol and perhaps slightly worse than baseline here due to dehydration from fevers and poor po intake Na+ up to 127 today from 125 on admission -Trend BMP -Monitor for neurological abnormalities (3) Anxiety disorder: Patient with a history of anxiety, exacerbated here by acute illness -continue on Lorazepam 4 times daily which she takes on a scheduled basis- changed to schedule from prn (4) Trigeminal neuralgia: Patient endorsing recent exacerbation of her facial pain--> seen routinely by Neuro Requested Neuro consult here by patient--> increased gabapentin to 800mg tid -check carbamazipine level -Continue home Carbatrol 200mg po bid -has tried multiple other medications all with various side effects -may need referral to cyberknife tx in future as per Neuro (5) DVT prophylaxis: Lovenox Dispo-continued stay Admission and Anticipated Discharge Date Admission Date: March 09, 2020 Subjective Pt reports continued LLQ and lower abd pain but slightly improved from previous. Occasional nausea, no vomiting. Denies chest pain or SOB. Pt was requesting to see her Neurologist, Dr. Harper this AM. Discussed case with him regarding her ongling TN-advised to increase gabapentin to 800 tid. Chart reviewed. Review of Systems Review of Systems: All systems reviewed & are unremarkable except as noted in HPI & below (having some loose stools today after po CT contrast) Physical Exam Constitutional: WD/WN, vitals as above Eyes: + anicteric sclerae ENMT: external ear and nose normal, oropharynx normal Neck: trachea midline, no thyromegaly Respiratory: normal respiratory effort, lungs clear to auscultation Cardiovascular: RRR, no murmur, no edema Chest (Breasts): Chest: normal inspection of chest Gastrointestinal (Abdomen): Inspection/Auscultation: abdomen normal to inspection and normal bowel sounds; abdomen not distended Percussion/Palpation: + abdomen tender (in LLQ with minimal guarding, no rebound) and abdomen soft Musculoskeletal: Extremities: extremities normal to inspection; no cyanosis and no clubbing Skin: no rashes, warm and dry Neurologic: moves all extremities and awake; no focal motor deficits Psychiatric: A+Ox3, euthymic affect Lymphatic: no lymphedema Results & Data Results & Data ([facility]) Vital Signs (Past 12 Hours) Vital Signs Temp Pulse Resp BP Pulse Ox 03/09/20 07:13 36.7 C 78 16 100/61 98 Laboratory Results 03/09/20 03/09/20 03/09/20 Range/Units 09:54 05:56 05:56 WBC 13.07 H (4.8-10.8) K/uL RBC 3.42 L (4.2-5.4) M/uL Hgb 10.8 L (12.0-16.0) g/dL Hct 31.1 L (37-47) % MCV 90.9 (80-100) fL MCH 31.6 (25-34) pg MCHC 34.7 (32-36) g/dL RDW Std Deviation 43.1 (36.4-46.3) fL RDW Coeff of Agu[place] 12.8 (11.5-14.5) % Plt Count 206 (130-400) K/uL MPV 8.7 (7.4-10.4) fL Immature Gran % (Auto) 0.2 % Neut % (Auto) 90.0 % Lymph % (Auto) 4.7 % [place] % (Auto) 4.9 % Eos % (Auto) 0.1 % Baso % (Auto) 0.1 % Immature Gran # (Auto) 0.03 H (0.00-0.02) K/uL Neut # (Auto) 11.76 H (1.4-6.5) K/uL Lymph # (Auto) 0.62 L (1.2-3.4) K/uL [place] # (Auto) 0.64 H (0.11-0.59) K/uL Eos # (Auto) 0.01 (0-0.5) K/uL Baso # (Auto) 0.01 (0-0.2) K/uL Sodium 127 L (136-145) mmol/L Potassium 3.7 (3.5-5.1) mmol/L Chloride 98 (98-107) mmol/L Carbon Dioxide 22 (21-32) mmol/L Anion Gap 7.0 (3-11) BUN 7 (7-18) mg/dl Creatinine 0.63 (0.6-1.2) mg/dl Est Cr Clr Drug Dosing 89.7 Est GFR ( Amer) 107.6 Est GFR (Non-Af Amer) 92.8 BUN/Creatinine Ratio 10.9 (10-20) Glucose 135 H (70-99) mg/dl Lactate (0.4-2.0) mmol/L Calcium 7.7 L (8.5-10.1) mg/dl Total Bilirubin (0.2-1) mg/dl AST (15-37) U/L ALT (12-78) U/L Alkaline Phosphatase (45-117) U/L Total Protein (6.4-8.2) gm/dl Albumin (3.4-5.0) gm/dl Globulin (2.5-4.0) gm/dl Albumin/Globulin Ratio (0.9-2) Lipase (73-393) U/L Urine Color Urine Appearance (Clear) Urine pH (4.5-7.5) Ur Specific Elmer (1.000-1.030) Urine Protein (Negative) Urine Glucose (UA) (Negative) Urine Ketones (Negative) Urine Blood (Negative) Urine Nitrite (Negative) Urine Bilirubin (Negative) Urine Urobilinogen (Negative) Ur Leukocyte Esterase (Negative) Urine WBC (Auto) (0-5) /hpf Urine RBC (Auto) (0-4) /hpf U Hyaline Cast (Auto) (0-5) /lpf U Epithel Cells (Auto) (0-5) /lpf Urine Bacteria (Auto) (Negative) Carbamazepine 7.8 (4-12) mcg/ml 03/09/20 03/09/20 03/08/20 Range/Units 01:47 01:47 19:49 WBC 14.29 H (4.8-10.8) K/uL RBC 3.48 L (4.2-5.4) M/uL Hgb 11.0 L (12.0-16.0) g/dL Hct 31.2 L (37-47) % MCV 89.7 (80-100) fL MCH 31.6 (25-34) pg MCHC 35.3 (32-36) g/dL RDW Std Deviation 42.3 (36.4-46.3) fL RDW Coeff of Aguila 12.9 (11.5-14.5) % Plt Count 191 (130-400) K/uL MPV 8.7 (7.4-10.4) fL Immature Gran % (Auto) 0.4 % Neut % (Auto) 90.3 % Lymph % (Auto) 3.5 % [place] % (Auto) 5.7 % Eos % (Auto) 0.0 % Baso % (Auto) 0.1 % Immature Gran # (Auto) 0.06 H (0.00-0.02) K/uL Neut # (Auto) 12.91 H (1.4-6.5) K/uL Lymph # (Auto) 0.50 L (1.2-3.4) K/uL [place] # (Auto) 0.81 H (0.11-0.59) K/uL Eos # (Auto) 0.00 (0-0.5) K/uL Baso # (Auto) 0.01 (0-0.2) K/uL Sodium 125 L (136-145) mmol/L Potassium 3.8 (3.5-5.1) mmol/L Chloride 97 L (98-107) mmol/L Carbon Dioxide 19 L (21-32) mmol/L Anion Gap 9.0 (3-11) BUN 8 (7-18) mg/dl Creatinine 0.56 L (0.6-1.2) mg/dl Est Cr Clr Drug Dosing Not Reportable Est GFR ( Amer) 111.8 Est GFR (Non-Af Amer) 96.5 BUN/Creatinine Ratio 14.5 (10-20) Glucose 152 H (70-99) mg/dl Lactate 1.0 (0.4-2.0) mmol/L Calcium 7.5 L (8.5-10.1) mg/dl Total Bilirubin (0.2-1) mg/dl AST (15-37) U/L ALT (12-78) U/L Alkaline Phosphatase (45-117) U/L Total Protein (6.4-8.2) gm/dl Albumin (3.4-5.0) gm/dl Globulin (2.5-4.0) gm/dl Albumin/Globulin Ratio (0.9-2) Lipase (73-393) U/L Urine Color Urine Appearance (Clear) Urine pH (4.5-7.5) Ur Specific Elmer (1.000-1.030) Urine Protein (Negative) Urine Glucose (UA) (Negative) Urine Ketones (Negative) Urine Blood (Negative) Urine Nitrite (Negative) Urine Bilirubin (Negative) Urine Urobilinogen (Negative) Ur Leukocyte Esterase (Negative) Urine WBC (Auto) (0-5) /hpf Urine RBC (Auto) (0-4) /hpf U Hyaline Cast (Auto) (0-5) /lpf U Epithel Cells (Auto) (0-5) /lpf Urine Bacteria (Auto) (Negative) Carbamazepine (4-12) mcg/ml 03/08/20 03/08/20 03/08/20 Range/Units 19:49 19:49 19:02 WBC 15.34 H (4.8-10.8) K/uL RBC 3.79 L (4.2-5.4) M/uL Hgb 11.9 L (12.0-16.0) g/dL Hct 34.0 L (37-47) % MCV 89.7 (80-100) fL MCH 31.4 (25-34) pg MCHC 35.0 (32-36) g/dL RDW Std Deviation 42.3 (36.4-46.3) fL RDW Coeff of Aguila 12.9 (11.5-14.5) % Plt Count 231 (130-400) K/uL MPV 9.4 (7.4-10.4) fL Immature Gran % (Auto) 0.3 % Neut % (Auto) 92.0 % Lymph % (Auto) 2.5 % [place] % (Auto) 5.1 % Eos % (Auto) 0.0 % Baso % (Auto) 0.1 % Immature Gran # (Auto) 0.04 H (0.00-0.02) K/uL Neut # (Auto) 14.12 H (1.4-6.5) K/uL Lymph # (Auto) 0.39 L (1.2-3.4) K/uL [place] # (Auto) 0.78 H (0.11-0.59) K/uL Eos # (Auto) 0.00 (0-0.5) K/uL Baso # (Auto) 0.01 (0-0.2) K/uL Sodium 124 L (136-145) mmol/L Potassium (3.5-5.1) mmol/L Chloride 92 L (98-107) mmol/L Carbon Dioxide 23 (21-32) mmol/L Anion Gap 9.0 (3-11) BUN 9 (7-18) mg/dl Creatinine 0.71 (0.6-1.2) mg/dl Est Cr Clr Drug Dosing Not Reportable Est GFR ( Amer) 102.2 Est GFR (Non-Af Amer) 88.1 BUN/Creatinine Ratio 12.7 (10-20) Glucose 120 H (70-99) mg/dl Lactate (0.4-2.0) mmol/L Calcium 8.5 (8.5-10.1) mg/dl Total Bilirubin 1.2 H D (0.2-1) mg/dl AST (15-37) U/L ALT 69 (12-78) U/L Alkaline Phosphatase 121 H (45-117) U/L Total Protein 6.9 (6.4-8.2) gm/dl Albumin 3.5 (3.4-5.0) gm/dl Globulin 3.4 (2.5-4.0) gm/dl Albumin/Globulin Ratio 1.0 (0.9-2) Lipase 128 (73-393) U/L Urine Color Jenni Urine Appearance Clear (Clear) Urine pH >= 9.0 H (4.5-7.5) Ur Specific Elmer 1.022 (1.000-1.030) Urine Protein 2+ H (Negative) Urine Glucose (UA) Negative (Negative) Urine Ketones 3+ H (Negative) Urine Blood Trace H (Negative) Urine Nitrite Negative (Negative) Urine Bilirubin Negative (Negative) Urine Urobilinogen Negative (Negative) Ur Leukocyte Esterase Trace H (Negative) Urine WBC (Auto) 1-5 (0-5) /hpf Urine RBC (Auto) 10-30 H (0-4) /hpf U Hyaline Cast (Auto) 0 (0-5) /lpf U Epithel Cells (Auto) >30 H (0-5) /lpf Urine Bacteria (Auto) Negative (Negative) Carbamazepine (4-12) mcg/ml PG Care Time/CCT Total # of Minutes Spent Total Time Spent with Patient: Total time spent is greater than 50% in coordination of care (as documented) at patient's floor/unit and/or counseling patient: Coding Level of Care Code None Diagnoses Diverticulitis large intestine K57.33 Diverticulitis bleeding: with bleeding Diverticulitis complication: without perforation or abscess Chronic hyponatremia E87.1 Anxiety disorder F41.9 Trigeminal neuralgia G50.0 DVT prophylaxis Z29.9 (1) Diverticulitis large intestine Diverticulitis bleeding: with bleeding Diverticulitis complication: without perforation or abscess Qualified Code(s): K57.33 - Diverticulitis of large intestine without perforation or abscess with bleeding
[2020-03-09] MEDS: ACETAMINOPHEN 325 MG TAB PO PRN (16:03)
[2020-03-09] MEDS ORDERED: Nursing to Pharmacy Communication ONE ×2 (16:23→19:07)
[2020-03-09] MEDS: CARBATROL PO SCH (16:41)
[2020-03-09] MEDS: GABAPENTIN 100 MG CAP PO SCH (20:49)
[2020-03-09] MEDS ORDERED: NON-FORMULARY PATIENT'S OWN MED PO ONE (21:00)
[2020-03-09] MEDS ORDERED: GABAPENTIN 300 MG CAP PO ONE (21:00)
[2020-03-10] MEDS: ACETAMINOPHEN 325 MG TAB PO PRN ×3 (04:03→23:32)
[2020-03-10] MEDS: ONDANSETRON INJ 2 MG/ML 2 ML VIAL IV PRN ×3 (04:05→20:44)
[2020-03-10 05:12] LABS: Basophils # (auto) 0.01 K/uL (0-0.2); Basophils % (auto) 0.1 %; Eosinophils # (auto) 0.03 K/uL (0-0.5); Eosinophils % (auto) 0.3 %; Hematocrit (blood only) 33.1 % (37-47); Hemoglobin 11.3 g/dL (12.0-16.0); Immature Granulocytes # (auto) 0.03 K/uL (0.00-0.02); Immature Granulocytes % (auto) 0.3 %; Lymphocytes # (auto) 0.62 K/uL (1.2-3.4); Lymphocytes % (auto) 6.7 %; Mean Corpuscular Hemoglobin 31.7 pg (25-34); Mean Corpuscular Hgb Conc 34.1 g/dL (32-36); Mean Corpuscular Volume 92.7 fL (80-100); Mean Platelet Volume 9.5 fL (7.4-10.4); Monocytes # (auto) 0.58 K/uL (0.11-0.59); Monocytes % (auto) 6.2 %; Neutrophils # (auto) 8.03 K/uL (1.4-6.5); Neutrophils % (auto) 86.4 %; Platelet Count 237 K/uL (130-400); RDW Coefficient of Variation 13.1 % (11.5-14.5); RDW Standard Deviation 44.1 fL (36.4-46.3); Red Blood Count 3.57 M/uL (4.2-5.4)
[2020-03-10] MEDS: metroNIDAZOLE 500 MG/100 ML BAG IV SCH ×3 (05:16→23:21)
[2020-03-10] MEDS: GABAPENTIN 100 MG CAP PO SCH ×3 (05:19→15:41)
[2020-03-10] MEDS: GABAPENTIN 300 MG CAP PO SCH ×3 (05:19→15:42)
[2020-03-10] MEDS: CARBATROL PO SCH ×3 (05:20→15:41)
[2020-03-10] MEDS: LORazepam 0.5 MG TAB PO PRN ×3 (05:25→21:15)
[2020-03-10 05:46] LABS: BUN Creatinine Ratio 13.3 (10-20); Calcium 8.3 mg/dl (8.5-10.1); Creatinine Clr Calc Pharmacy 79.6 ml/min; Est GFR (African American) 102.2; Est GFR (Non-African American) 88.1; Potassium 3.6 mmol/L (3.5-5.1)
[2020-03-10] MEDS: SODIUM CHLORIDE 0.9% 1000ML 1,000 ML IV SCH ×2 (06:21→16:48)
[2020-03-10 06:42] LABS: Phosphorus 1.5 mg/dl (2.5-4.9)
[2020-03-10] MEDS ORDERED: POTASSIUM PHOS 3 MMOL/1 ML INFUSION IV STA ×2 (06:55→09:57)
--- NOTE | 2020-03-10 07:20 | Surgery Progress Note ---
Date of Service March 10, 2020 Assessment & Plan (1) Diverticulitis large intestine: See subjective above Subjective Patient feeling somewhat better but has mild bloating Her white blood cell count was normal this morning She is having loose bowel movements, somewhat frequent It appears her pain is controlled She does have some very mild distention, localized lower abdominal pain Continue n.p.o. with ice chips only today, likely clear liquids tomorrow, advance very slowly Continue IV antibiotics We will order stool for C. difficile Should be on IV antibiotics at least 5 to 7 days depending on her progress Physical Exam Physical Exam: See above Results & Data Vital Signs (Past 12 Hours) Vital Signs Temp Pulse Resp BP Pulse Ox 03/09/20 22:45 36.7 C 67 16 100/65 94 I did review her studies PG Care Time/CCT Total # of Minutes Spent Total Time Spent with Patient: Total time spent is greater than 50% in coordination of care (as documented) at patient's floor/unit and/or counseling patient: Coding Level of Care Code 39313 Inpt Consult Level 3 Diagnoses Diverticulitis large intestine K57.33 Diverticulitis bleeding: with bleeding Diverticulitis complication: without perforation or abscess (1) Diverticulitis large intestine Diverticulitis bleeding: with bleeding Diverticulitis complication: without perforation or abscess Qualified Code(s): K57.33 - Diverticulitis of large intestine without perforation or abscess with bleeding
[2020-03-10] MEDS ORDERED: POTASSIUM PHOSPHATE 21 MMOL in SODIUM CHLORIDE 0.9% 500 ML IV ONE (07:30)
[2020-03-10] MEDS: KETOROLAC TROMETHAMINE 15 MG/ML VIAL IV PRN ×3 (07:35→20:43)
[2020-03-10] MEDS: CIPROFLOXACIN / D5W 400 MG/200 ML BAG IV SCH ×2 (08:54→20:57)
--- NOTE | 2020-03-10 09:36 | Neurology Progress Note ---
Date of Service March 10, 2020 Assessment & Plan (1) Trigeminal neuralgia of left side of face: (2) Hyponatremia: (3) Anxiety disorder: Patient has a longstanding (since 2005) history of intermittent significant left facial pain, consistent with V3 (and V2) trigeminal neuralgia. She has been refractory to some medications and side effects to others. More recently she has had a progressive course with more pain and as of February 24 she was increased to her current Carbatrol ER and gabapentin doses. She was still experiencing pain on admission but since changes in dosage were made March 09 she is improved, and currently, has no facial pain. She has chronic hyponatremia from carbamazepine. It is typically been between 124 and 127, which does not give her any issues as far as I am aware. Patient will get nervous if it falls below 124, but she has tolerated the low 120s. This morning, sodium was 133. Carbamazepine level was mid-normal at 7.8. She has a history of anxiety somewhat controlled with lorazepam. This is mostly a function of how much facial pain she is having. Currently she has diverticulitis with perforated bowel on IV antibiotics followed closely by hospitalist and surgical teams. Her pain level is quite good. Recommendations: 1. Continue Carbatrol ER (her own home medication) 200 milligrams 3 times a day. 2. Continue gabapentin, 800 milligrams 3 times daily for now. The patient at home uses the 300 milligram capsules because the (600mg and 800 milligram) pills are large and harder to swallow. She could be given a total daily dose of 2400 milligrams gabapentin by using combination of the 300 milligram capsules. 4. Since medications seem to have failed overall, I am likely going to refer her to [facility] (or [facility]) for consideration of surgical procedures or gamma knife for trigeminal neuralgia treatment. Overall, I spent a total of 35 minutes with this case including review of records, direct evaluation the patient at bedside, and discussion of the case with the patient at bedside (and RN at bedside), including differential diagnosis and treatment options. Admission and Anticipated Discharge Date Admission Date: March 09, 2020 Subjective Patient feels that she is improved today compared to yesterday. Her face pain on the left is 0/10 this morning. Yesterday morning and afternoon, prior to her meds being increased, her pain was 5/10 particularly with talking. Her abdomen has some mild distension but not much pain. She has some cramping and some loose stool with some mild fecal incontinence. CBC showed mild anemia but a normal white count. Chem profile shows sodium of 133 and a glucose of 90 but a low phosphorus of 1.5 and calcium of 8.3. Carbamazepine level was 7.8 yesterday. Blood and urine cultures have no growth so far. Results & Data ([facility]) Vital Signs (Past 12 Hours) Vital Signs Temp Pulse Resp BP Pulse Ox 03/10/20 07:29 37.0 C 77 16 103/60 97 03/09/20 22:45 36.7 C 67 16 100/65 94 Exam (Neuro) Physical Exam: She is awake and alert. Speech is without aphasia or dysarthria. Mood is normal and affect is appropriate. Thought processes are intact with good long and short-term memory. Extraocular eye muscles are intact without nystagmus. She has normal strength and motion of muscles in her face in the forehead and lower half diffusely bilaterally. Tongue is midline. She has no numbness to touch in her face and talking this morning does not bring on pain. Coordination is normal in the arms. Strength is symmetrical in the limbs. PG Care Time/CCT Total # of Minutes Spent Total Time Spent with Patient: Total time spent is greater than 50% in coordination of care (as documented) at patient's floor/unit and/or counseling patient: Coding Level of Care Code 08476 Subseq Hosp Care Lvl 3 Diagnoses Trigeminal neuralgia of left side of face G50.0 Hyponatremia E87.1 Anxiety disorder F41.9 Time Spent (min) 35
--- NOTE | 2020-03-10 15:21 | Hospitalist Progress Note ---
Date of Service March 10, 2020 Assessment & Plan (1) Diverticulitis large intestine: Patient is a 69-year-old female with a past medical history of Chronic hyponatremia, trigeminal neuralgia, anxiety disorder, IBS, history of breast cancer who presents for evaluation of abdominal pain. Patient's clinical exam, history, and imaging findings are all consistent with acute diverticulitis. She was initially diagnosed the day prior to admission in ER and sent home w/ Augmentin- then had worsening of her abdominal pain causing her to return to ER. CT abd/pel with po con with: "Considerable progression of findings of acute diverticulitis involving the descending as well as proximal to mid sigmoid colon. 2. Considerable progression of the pericolonic infiltrative change as well as wall thickening of these regions. 3. Extraluminal small air pockets medial and posterior to the colon consistent with walled off perforations. 4. Probable developing phlegmon formation given this appearance. 5. No evidence for true fluid abscess process at this time. 6. No evidence for nonobstructive bowel pattern." Improved somewhat today but continues with some pain and diarrhea Now afebrile x 48 hours, leukocytosis resolved continue NPO status but can have ice chips/sips today as per Surgery Appreciate Surgery consult-conservative management for now continue IV Cipro and Flagyl and Surgery recommends IV abx for at least 5-7 days--> will remain inpatient for this -continue Maintenance IV fluids with normal saline but cut down to 75mL/hr for crackles at bases -IS q1 hour while awake, encouraged ambulation -Zofran PRN for nausea -morphine prn pain , toradol prn -follow CBC, CMP -if worsens clinically or persistent leukocytosis, fevers, would re-image abdomen but seems to be improving -will need colonoscopy in 6 weeks-follows with [facility], Dr. Hendricks (2) Chronic hyponatremia: Patient with a history of chronic hyponatremia being followed by Dr. Harper for that and trigeminal neuralgia. Secondary to Carbatrol and perhaps slightly worse than baseline here due to dehydration from fevers and poor po intake Na+ up to 133 today from 125 on admission after being on NS IVFs -Trend BMP -Monitor for neurological abnormalities (3) Anxiety disorder: Patient with a history of anxiety, exacerbated here by acute illness -continue on Lorazepam 4 times daily which she takes on a scheduled basis (4) Trigeminal neuralgia: Patient endorsing recent exacerbation of her facial pain--> seen routinely by Neuro Requested Neuro consult here by patient--> increased gabapentin to 800mg tid Pain is now much improved in the face, but she is also not chewing any food which usually exacerbates her pain -checked carbamazipine level-7.8 and acceptable to Neuro -Continue home Carbatrol 200mg po bid -has tried multiple other medications all with various side effects -may need referral to cyberknife tx in future as per Neuro (5) Diarrhea: started after admission, thought to be worsened by po contrast from her CT scan C. diff checked and is negative -continue IVF hydration (6) DVT prophylaxis: Lovenox Dispo-continued stay Admission and Anticipated Discharge Date Admission Date: March 09, 2020 Anticipated date of discharge: 03/14/20 Subjective Pt feeling depressed today about being in the hospital. Abd pain is now a cramping sensation but not a severe pain. She continues to have loose stools with incontinence to stool even in her sleep. Her jaw pain is much improved but states that it is likely that way because she has not been chewing anything with being NPO. Sweet Dough Mixer had a hard time getting blood from her today. Review of Systems Review of Systems: All systems reviewed & are unremarkable except as noted in HPI & below Physical Exam Constitutional: WD/WN, vitals as above Eyes: + anicteric sclerae Neck: trachea midline, no thyromegaly Respiratory: Auscultation: + crackles (mild bibasilar that cleared with deep inspiration); no rhonchi and no wheezes Cardiovascular: RRR, no murmur, no edema Chest (Breasts): Chest: normal inspection of chest Gastrointestinal (Abdomen): Inspection/Auscultation: abdomen normal to inspection and normal bowel sounds; abdomen not distended Percussion/Palpation: + abdomen tender (in LLQ with minimal guarding, no rebound) and abdomen soft Musculoskeletal: Extremities: extremities normal to inspection; no cyanosis and no clubbing Skin: no rashes, warm and dry Neurologic: moves all extremities and awake; no focal motor deficits Psychiatric: Affect: + depressed affect Lymphatic: no lymphedema Results & Data Results & Data ([facility]) Vital Signs (Past 12 Hours) Vital Signs Temp Pulse Resp BP Pulse Ox 03/10/20 07:29 37.0 C 77 16 103/60 97 PG Care Time/CCT Total # of Minutes Spent Total Time Spent with Patient: Total time spent is greater than 50% in coordination of care (as documented) at patient's floor/unit and/or counseling patient: Coding Level of Care Code 98773 Subseq Hosp Care Lvl 3 Diagnoses Diverticulitis large intestine K57.33 Diverticulitis bleeding: with bleeding Diverticulitis complication: without perforation or abscess Chronic hyponatremia E87.1 Anxiety disorder F41.9 Trigeminal neuralgia G50.0 Diarrhea R19.7 DVT prophylaxis Z29.9 (1) Diverticulitis large intestine Diverticulitis bleeding: with bleeding Diverticulitis complication: without perforation or abscess Qualified Code(s): K57.33 - Diverticulitis of large intestine without perforation or abscess with bleeding
[2020-03-11] MEDS: LORazepam 0.5 MG TAB PO PRN (03:15)
[2020-03-11] MEDS: ONDANSETRON INJ 2 MG/ML 2 ML VIAL IV PRN ×2 (03:15→18:05)
[2020-03-11] MEDS: KETOROLAC TROMETHAMINE 15 MG/ML VIAL IV PRN (04:19)
[2020-03-11] MEDS: metroNIDAZOLE 500 MG/100 ML BAG IV SCH ×2 (05:42→17:48)
[2020-03-11] MEDS: GABAPENTIN 100 MG CAP PO SCH ×2 (05:46→13:44)
[2020-03-11] MEDS: CARBATROL PO SCH ×3 (05:47→17:57)
[2020-03-11] MEDS: GABAPENTIN 300 MG CAP PO SCH ×2 (05:47→13:43)
[2020-03-11] MEDS: SODIUM CHLORIDE 0.9% 1000ML 1,000 ML IV SCH ×2 (05:51→17:48)
[2020-03-11 05:54] LABS: Basophils # (auto) 0.01 K/uL (0-0.2); Basophils % (auto) 0.2 %; Eosinophils # (auto) 0.03 K/uL (0-0.5); Eosinophils % (auto) 0.5 %; Hematocrit (blood only) 34.8 % (37-47); Hemoglobin 11.9 g/dL (12.0-16.0); Immature Granulocytes # (auto) 0.04 K/uL (0.00-0.02); Immature Granulocytes % (auto) 0.6 %; Lymphocytes # (auto) 0.48 K/uL (1.2-3.4); Lymphocytes % (auto) 7.7 %; Mean Corpuscular Hemoglobin 31.5 pg (25-34); Mean Corpuscular Hgb Conc 34.2 g/dL (32-36); Mean Corpuscular Volume 92.1 fL (80-100); Mean Platelet Volume 8.8 fL (7.4-10.4); Monocytes # (auto) 0.27 K/uL (0.11-0.59); Monocytes % (auto) 4.3 %; Neutrophils % (auto) 86.7 %; Platelet Count 287 K/uL (130-400); RDW Coefficient of Variation 13.2 % (11.5-14.5); RDW Standard Deviation 44.7 fL (36.4-46.3); Red Blood Count 3.78 M/uL (4.2-5.4); White Blood Count 6.23 K/uL (4.8-10.8)
[2020-03-11 06:28] LABS: BUN Creatinine Ratio 13.8 (10-20); Creatinine Clr Calc Pharmacy 97.4 ml/min; Est GFR (African American) 110.5; Est GFR (Non-African American) 95.4; Phosphorus 1.6 mg/dl (2.5-4.9); Potassium 3.3 mmol/L (3.5-5.1)
--- NOTE | 2020-03-11 07:29 | Surgery Progress Note ---
Date of Service March 11, 2020 Assessment & Plan (1) Diverticulitis large intestine: pt shaking in bed "horrible" pain- more diffuse in abdomen low grd fever, sl incr in wbc more lower abd tenderness- peritoneal signs for OR this am, laparotomy, sigmoid resection, washout, probable temp colostomy Results & Data Vital Signs (Past 12 Hours) Vital Signs Temp Pulse Resp BP Pulse Ox 03/10/20 23:00 37.6 C H 85 16 124/74 91 PG Care Time/CCT Total # of Minutes Spent Total Time Spent with Patient: Total time spent is greater than 50% in coordination of care (as documented) at patient's floor/unit and/or counseling patient: Coding Level of Care Code 52257 Subseq Hosp Care Lvl 3 Diagnoses Diverticulitis large intestine K57.33 Diverticulitis bleeding: with bleeding Diverticulitis complication: without perforation or abscess (1) Diverticulitis large intestine Diverticulitis bleeding: with bleeding Diverticulitis complication: without perforation or abscess Qualified Code(s): K57.33 - Diverticulitis of large intestine without perforation or abscess with bleeding
[2020-03-11] MEDS: CIPROFLOXACIN / D5W 400 MG/200 ML BAG IV SCH (09:08)
[2020-03-11] MEDS ORDERED: POTASSIUM PHOS 3 MMOL/1 ML INFUSION IV STA (09:39)
--- NOTE | 2020-03-11 09:58 | Neurology Progress Note ---
Date of Service March 11, 2020 Assessment & Plan (1) Trigeminal neuralgia of left side of face: (2) Hyponatremia: (3) Anxiety disorder: Patient has a longstanding (since 2005) history of intermittent significant left facial pain, consistent with V3 (and V2) trigeminal neuralgia. She has been refractory to some medications and side effects to others. More recently she has had a progressive course with more pain and as of February 24 she was increased to her current Carbatrol ER and gabapentin doses. She was still experiencing pain on admission but since changes in dosage were made March 09 she is improved, and currently, has no facial pain. She has chronic hyponatremia from carbamazepine. It is typically been between 124 and 127, which does not give her any issues as far as I am aware. Patient will get nervous if it falls below 124, but she has tolerated the low 120s. This morning, sodium was 133. Carbamazepine level was mid-normal at 7.8. She has a history of anxiety somewhat controlled with lorazepam. This is mostly a function of how much facial pain she is having. Mood is much worse this morning because her pain and impending surgery. Currently she has diverticulitis with perforated bowel on IV antibiotics. She is going to the OR this morning. Recommendations: 1. Continue Carbatrol ER (her own home medication) 200 milligrams 3 times a day. 2. Continue gabapentin, 800 milligrams 3 times daily for now. The patient at home uses the 300 milligram capsules because the (600mg and 800 milligram) pills are large and harder to swallow. She could be given a total daily dose of 2400 milligrams gabapentin by using combination of the 300 milligram capsules. 4. Since medications seem to have failed overall, I am likely going to refer her to [facility] (or [facility]) for consideration of surgical procedures or gamma knife for trigeminal neuralgia treatment. Overall, I spent a total of 25 minutes with this case including review of records, direct evaluation the patient at bedside, and discussion of the case with the patient at bedside (and RN at bedside), including differential diagnosis and treatment options. Admission and Anticipated Discharge Date Admission Date: March 09, 2020 Anticipated date of discharge: 03/14/20 Subjective Although the patient was doing fairly well yesterday morning with her abdominal pain, it started increasing yesterday afternoon evening. Overnight is been worse quite significant this morning (07/15). She is not having any left face pain. She saw Dr. Luciano who is taking her to the OR today. Blood pressure was 153/80 with a pulse of 116. Temp is 37. O2 saturation was 90 percent and she was given 2 liters nasal cannula O2 Results & Data ([facility]) Vital Signs (Past 12 Hours) Vital Signs Temp Pulse Resp BP Pulse Ox 03/11/20 07:31 37.4 C 116 H 20 153/80 H 90 03/10/20 23:00 37.6 C H 85 16 124/74 91 Exam (Neuro) Physical Exam: She is awake and alert. Speech is without aphasia or dysarthria. Mood is down and affect is appropriate. She is anxious and upset about all these physical problems and the fact that she is alone with no one at her house or in town that she can count on. Extraocular eye muscles are intact without nystagmus and there is no facial droop. There is no abnormal involuntary movements in the limbs and strength is symmetrical. PG Care Time/CCT Total # of Minutes Spent Total Time Spent with Patient: Total time spent is greater than 50% in coordination of care (as documented) at patient's floor/unit and/or counseling patient: Coding Level of Care Code 96655 Subseq Hosp Care Lvl 2 Diagnoses Trigeminal neuralgia of left side of face G50.0 Hyponatremia E87.1 Anxiety disorder F41.9 Time Spent (min) 25
[2020-03-11] MEDS ORDERED: POTASSIUM PHOSPHATE 21 MMOL in SODIUM CHLORIDE 0.9% 500 ML IV ONE (10:00)
[2020-03-11] MEDS ORDERED: ACETAMINOPHEN 1000 MG/100 ML IV IV ONE (10:34)
[2020-03-11] MEDS ORDERED: fentaNYL citrate 100 MCG/2 ML VIAL ONE (10:36)
--- NOTE | 2020-03-11 11:16 | Anesthesiology Consultation ---
Date of Service March 11, 2020 Assessment & Plan (1) Encounter for pre-operative examination: Chart Review Chart Review: Acceptable Risk for Surgery and Patient NOT seen in Pre Admission Testing Consults Requested none ASA ASA3 Proposed Anesthesia Anesthesia Type: General/Epidural (thoracic epidural) History Surgery Operation Date: 03/11/20 08:30 Proposed Procedures p Laparotomy, Sigmoid Colon Resection - Eliecer Luciano MD, FACS Height/Weight Height: 5 ft 5 in Weight: 78.4 kg Allergies Allergy/AdvReac Type Severity Reaction Status Date / Time meperidine Allergy Severe STOPPED Verified 03/11/20 10:00 BREATHING Iodinated Contrast Media Allergy Mild HIVES Verified 03/11/20 10:00 amitriptyline AdvReac Intermediate FEET Verified 03/11/20 10:00 NEUROPATHY, "ILL FEELING" codeine AdvReac Intermediate VOMITING Verified 03/11/20 10:00 dicyclomine AdvReac Intermediate CRAMPS, Verified 03/11/20 10:00 NAUSEA diphenhydramine AdvReac Intermediate HEART Verified 03/11/20 10:00 RACING erythromycin base AdvReac Intermediate N&V Verified 03/11/20 10:00 fentanyl AdvReac Intermediate DIZZINESS, Verified 03/11/20 10:00 NAUSEA omeprazole AdvReac Intermediate VOMITING Verified 03/11/20 10:00 pregabalin [From Lyrica] AdvReac Intermediate NAUSEA, Verified 03/11/20 10:00 "STRANGE SENSATION ALL OVER" procaine AdvReac Intermediate HEART Verified 03/11/20 10:00 RACING Sulfa (Sulfonamide AdvReac Intermediate N&V Verified 03/11/20 10:00 Antibiotics) baclofen AdvReac Mild VOMITING, Verified 03/11/20 10:00 "FELT WEIRD" epinephrine AdvReac Unknown HEART Verified 03/11/20 10:00 RACING ANTIHISTAMINES AdvReac Intermediate HEART Uncoded 03/11/20 10:00 RACING NARCOTICS AdvReac Intermediate "CAN'T Uncoded 03/11/20 10:00 TOLERATE" MUSCLERELAXANTS AdvReac Mild VOMITING Uncoded 03/11/20 10:00 Medications Home Medications Medication Instructions Recorded Confirmed Last Taken ondansetron 8 mg PO DIRECTED PRN 08/30/18 03/08/20 Unknown lorazepam 0.5 mg tablet 0.5 mg PO QID PRN 07/04/19 03/08/20 03/07/20 16:00 Carbatrol 200 mg capsule, extended 200 mg PO TID 30 Days #90 cap NS 02/25/20 03/08/20 03/07/20 16:00 release gabapentin 300 mg capsule 600 mg PO TID #180 cap 02/25/20 03/08/20 03/07/20 16:00 amoxicillin-pot clavulanate 1 tab PO BID #10 tab 03/07/20 03/08/20 Unknown [Augmentin] naproxen 375 mg PO BID PRN 03/07/20 03/08/20 Unknown polyethylene glycol 3350 [Miralax] 17 g PO DAILY PRN 03/07/20 03/08/20 Unknown Active Medications Generic Name Dose Route Start Last Admin Trade Name Freq PRN Reason Stop Dose Admin Acetaminophen 650 mg 03/09/20 15:40 03/10/20 23:32 Tylenol PO 04/08/20 15:39 650 mg Q4H PRN Administration Pain or Fever Gabapentin 600 mg 03/09/20 16:30 03/11/20 05:47 Neurontin PO 04/08/20 16:29 600 mg TID@0600,1130,1630 JEFF Administration Gabapentin 200 mg 03/09/20 21:00 03/11/20 05:46 Neurontin PO 04/08/20 20:59 200 mg TID@0600,1130,1630 JEFF Administration Sodium Chloride 1,000 mls @ 75 mls/hr 03/08/20 19:15 03/11/20 05:53 Nss 1000ml IV 04/07/20 19:14 75 mls/hr .[id number] JEFF Infusion Metronidazole 500 mg in 100 mls @ 100 mls/hr 03/09/20 06:00 03/11/20 06:42 Flagyl IV 03/19/20 05:59 Infused Q8H JEFF Infusion Ciprofloxacin 400 mg in 200 mls @ 100 mls/hr 03/09/20 09:00 03/11/20 09:08 Cipro IV 03/19/20 08:59 100 mls/hr Q12H JEFF Administration Protocol Ketorolac Tromethamine 15 mg 03/09/20 10:57 03/11/20 04:19 Toradol IV 03/14/20 10:56 15 mg Q6H PRN Administration Pain Lorazepam 0.5 mg 03/09/20 09:46 03/11/20 03:15 Ativan PO 04/08/20 09:45 0.5 mg QID PRN Administration Anxiety Non-Formulary Medication 1 ea 03/09/20 16:30 03/11/20 05:47 Non-Formulary Patient's Own Med PO 04/08/20 16:29 200 mg TID@0600,1130,1630 JEFF Administration Ondansetron HCl 6 mg 03/09/20 01:14 03/11/20 03:15 Zofran IV 04/08/20 01:13 6 mg Q6H PRN Administration Nausea NPO Date Last Intake of Fluids: 03/10/20 Time Last Intake of Fluids: 06:00 Last Intake of Fluids Comment: ice chips and sips with meds only Date Last Intake of Solids: 03/07/20 Time Last Intake of Solids: 08:00 Past Medical History Medical History Anxiety Costochondritis Hemangioma LIVER AND CUTANEOUS History of breast cancer LEFT History of Nasima-Falcon virus infection Hyponatremia CHRONIC FELT 2/2 CARBATROL IBS (irritable bowel syndrome) MVP (mitral valve prolapse) HX PER PATIENT; NO RECENT ECHO Trigeminal neuralgia of left side of face Past Family History Family History Father , CVA in his 40s that lead to "heart problems". at 56 y/o. Stroke Mother , age 63 of ruptured aneurysm No problems noted. Past Surgical History Surgical History History of colonoscopy History of lumpectomy of left breast + LND S/P cholecystectomy April 2019 Social History Smoking Status: Never smoker Hx Alcohol Use: No Hx Substance Use: No substance use type: does not use Physical Exam Vital Signs Last Vital Signs Temp 38.5 C H 03/11/20 09:48 Pulse 113 H 03/11/20 09:48 Resp 22 03/11/20 09:48 BP 129/69 03/11/20 09:48 Pulse Ox 93 03/11/20 09:48 Testing Laboratory Results 03/11/20 05:34 03/11/20 05:34 Urine Color Jenni 03/08/20 19:02 Urine Appearance Clear (Clear) 03/08/20 19:02 Urine pH >= 9.0 (4.5-7.5) H 03/08/20 19:02 Ur Specific [place] 1.022 (1.000-1.030) 03/08/20 19:02 Urine Protein 2+ (Negative) H 03/08/20 19:02 Urine Glucose (UA) Negative (Negative) 03/08/20 19:02 Urine Ketones 3+ (Negative) H 03/08/20 19:02 Urine Nitrite Negative (Negative) 03/08/20 19:02 Ur Leukocyte Esterase Trace (Negative) H 03/08/20 19:02 Urine WBC (Auto) 1-5 /hpf (0-5) 03/08/20 19:02 Urine RBC (Auto) 10-30 /hpf (0-4) H 03/08/20 19:02 U Hyaline Cast (Auto) 0 /lpf (0-5) 03/08/20 19:02 U Epithel Cells (Auto) >30 /lpf (0-5) H 03/08/20 19:02 Urine Bacteria (Auto) Negative (Negative) 03/08/20 19:02 03/08/20 20:05 Aerobic Blood Culture - Preliminary Blood No growth in Aerobic bottle after 48 hours. Anaerobic Blood Culture - Final 03/08/20 19:49 Aerobic Blood Culture - Preliminary Blood No growth in Aerobic bottle after 48 hours. Anaerobic Blood Culture - Preliminary No growth in Anaerobic bottle after 48 hours.
[2020-03-11] MEDS ORDERED: ROPIVACAINE 0.5% 5 MG/ML 30 ML VIAL ONE (11:17)
[2020-03-11] MEDS ORDERED: ONDANSETRON INJ 2 MG/ML 2 ML VIAL IV PRN (11:39)
[2020-03-11] MEDS ORDERED: fentaNYL citrate 100 MCG/2 ML VIAL IV PRN (11:39)
[2020-03-11] MEDS ORDERED: NALOXONE HCL 1 MG in SODIUM CHLORIDE 0.9% 1000ML 1,000 ML IV PRN (11:39)
[2020-03-11] MEDS ORDERED: NALBUPHINE HCL INJ 10 MG/ML AMP IV PRN (11:39)
[2020-03-11] MEDS ORDERED: NALOXONE HCL 0.4 MG/1 ML VIAL/CARP IV PRN (11:39)
[2020-03-11] MEDS ORDERED: ATROPINE SULFATE 0.1 MG/ML 10ML SYR IV PRN (11:39)
[2020-03-11] MEDS ORDERED: LACTATED RINGER'S 1,000 ML IV PRN (11:39)
[2020-03-11] MEDS ORDERED: ePHEDrine sulfate 50 MG/ML AMP IV PRN ×2 (11:39)
[2020-03-11] MEDS ORDERED: HYDROmorphone INJ 0.5 MG/0.5 ML SYR IV PRN (11:39)
[2020-03-11] MEDS ORDERED: NO NARCOTICS OR SEDATIVES SCH (11:45)
[2020-03-11] MEDS ORDERED: PROPOFOL IV EMULSION 10 MG/ML 20 ML VIAL IV ONE (12:51)
[2020-03-11] MEDS ORDERED: ePHEDrine sulfate 50 MG/ML SYR ONE (12:51)
[2020-03-11] MEDS ORDERED: SODIUM CHLORIDE 0.9% INJ 10 ML VIAL ONE ×3 (12:51)
[2020-03-11] MEDS ORDERED: LIDOCAINE HCL 2% 2 ML VIAL/AMP(20MG/ML) INFIL ONE (12:51)
--- NOTE | 2020-03-11 13:26 | Post Operative Brief Note ---
PG Immediate Post Op with CF Date of Surgery March 11, 2020 Pre & Post Diagnosis Operation Date: 03/11/20 08:30 Pre-Op Diagnosis: DIVERTICULITIS Post-Op Diagnosis: DIVERTICULITIS, feculent peritonitis, colon perforation I identified the patient and participated in the time-out.: Yes Procedure Operation Date: 03/11/20 08:30 Actual Procedures p Laparotomy, Sigmoid Colon Resection with End Colostomy(Not Applicable) - Eliecer Luciano MD, FACS Surgeon Eliecer Luciano MD, FACS [employer] Brigette Richter Estimated Blood Loss 20 Findings Consistent with Post-Op Diagnosis Specimens Specimen Description: Permanent Specimen: A) Descending Colon, Silk Suture Distal Drains Jhaveri Catheter, Antione-Schilling Drain (19fr) and Pomaria Drain
[2020-03-11] MEDS ORDERED: ACETAMINOPHEN 1,000 MG/100 ML VIAL IV STA (13:34)
[2020-03-11] MEDS ORDERED: NEOSTIGMINE METHYLSULFATE 5 MG/5 ML SYR ONE (13:41)
[2020-03-11] MEDS ORDERED: GLYCOPYRROLATE 0.2 MG/ML VIAL ONE (13:41)
--- NOTE | 2020-03-11 13:55 | Operative Report (OR) ---
DATE OF OPERATION: 03/11/2020 NAME OF OPERATION: Laparotomy, colon resection, end colostomy, abdominal washout. PREOPERATIVE DIAGNOSIS: Perforated diverticulitis. POSTOPERATIVE DIAGNOSES: Perforated diverticulitis with feculent peritonitis. STAFF SURGEON: Eliecer Luciano MD. DIGITAL EXPERIENCE MANAGER: Ben Richter PA-C. ANESTHESIA: General. DESCRIPTION OF PROCEDURE: The patient was brought in the operating room and placed on the operating table in supine position. Jhaveri catheter, orogastric tube were placed. Her abdomen was prepped and draped in usual fashion. My loan assistant helped with prepping, draping, the entire operation and closure of the wounds and placement of the colostomy. A midline incision was made below the umbilicus, carrying dissection down into the abdomen encountering some cloudy bilious fluid, which appeared to be feculent. On exploration, the patient had a perforation of the descending left colon with surrounding purulent fluid and then cloudy purulent fluid over to the right, right colic gutter up toward the liver, and basically this was a diffuse feculent peritonitis. At this point, the sigmoid colon was transected using a ERIK stapler. Then, the sigmoid and left colon mobilized. I did have to make the incision above the umbilicus because the site of the perforation was relatively high and lateral. Proximal to the perforation, we were able to transect the colon, it was mobilized, it was brought out through the left abdominal wall as an end colostomy. At this point, the abdomen was washed out with antibiotic solution. The sigmoid was left as a Merlin pouch and oversewn using 3-0 Prolene suture. A 19 round Antione-Schilling drain was placed through the right abdomen into the pelvis to the left side of the abdomen. The peritoneum and posterior fascia were reapproximated using running #1 chromic suture and then the anterior fascia reapproximated using both running and interrupted #1 PDS suture. A Neptune drain was placed in the subcutaneous space, secured to the skin using 4-0 nylon suture. Subcutaneous tissue reapproximated using 2-0 plain suture. Skin reapproximated using manuel. The end colostomy was then attached to the fascia using interrupted 0 chromic suture and to the skin using 2-0 chromic suture. It was opened, patent. It was not matured. Dressings were applied and the patient was transferred to recovery room in stable condition. I attest to the content of the Intraoperative Record and any orders documented therein. Any exception s are noted below.
--- NOTE | 2020-03-11 14:27 | Anesthesiology Progress Note ---
Date of Service March 11, 2020 Anesthesia Post Procedure Vital Signs Vital Signs: Temp Pulse Pulse Resp BP Pulse Ox 03/11/20 14:20 36.4 C L 84 20 110/61 94 03/11/20 14:10 88 18 105/58 L 95 03/11/20 14:00 36.8 C 97 H 16 98/59 L 94 03/11/20 09:48 38.5 C H 113 H 22 129/69 93 03/11/20 07:31 37.4 C 116 H 20 153/80 H 90 03/10/20 23:00 37.6 C H 85 16 124/74 91 03/10/20 15:17 37.2 C 78 16 114/64 94 Pain Intensity Abdomen: Pain Intensity: 8 Transfer of Care Handoff Completed per policy Notes Mental Status: alert / awake / arousable Patient Amnestic to Procedure: Yes Nausea / Vomiting: adequately controlled Pain: adequately controlled Airway Patency, RR, SpO2: stable & adequate BP & HR: stable & adequate Hydration State: stable & adequate Anesthetic Complications: no major complications apparent Notes: epidural working well for pain control
[2020-03-11] MEDS: BUPIVACAINE 0.0625% EPI PRN ×2 (14:49→22:57)
[2020-03-11] MEDS: FENTANYL EPI PRN ×2 (14:49→22:57)
[2020-03-11] MEDS ORDERED: PROMETHAZINE HCL 25 MG in SODIUM CHLORIDE 0.9% 50 ML IV PRN (15:43)
[2020-03-11] MEDS ORDERED: PIPERACILL/TAZOBAC CONSULT ACTIVE PRN (15:43)
[2020-03-11] MEDS ORDERED: PIPERACILLIN/TAZOBACTAM 3.375 GM in DEXTROSE 5% 100 ML IV ONE (16:00)
[2020-03-11] MEDS: NSS + 20MEQ KCL 20 MEQ/1,000 ML BAG IV SCH (16:25)
--- NOTE | 2020-03-11 17:02 | Hospitalist Progress Note ---
Date of Service March 11, 2020 Assessment & Plan (1) Diverticulitis of colon with perforation: Patient is a 69-year-old female with a past medical history of Chronic hyponatremia, trigeminal neuralgia, anxiety disorder, IBS, history of breast cancer who presents for evaluation of abdominal pain and found to have diverticulitis with microperf and developing phlegmon. CT abd/pel with po con with: "Considerable progression of findings of acute diverticulitis involving the descending as well as proximal to mid sigmoid colon. 2. Considerable progression of the pericolonic infiltrative change as well as wall thickening of these regions. 3. Extraluminal small air pockets medial and posterior to the colon consistent with walled off perforations. 4. Probable developing phlegmon formation given this appearance. 5. No evidence for true fluid abscess process at this time. 6. No evidence for nonobstructive bowel pattern." Was slightly improved but then acutely worsened overnight on 03/11 with pain and fever--> was taken to the OR --> found to have perforated colon with feculent peritonitis--> had sigmoid colectomy and end colostomy performed by Dr. Luciano -post-op management as per Surgery continue NPO status but can have ice chips/sips and po meds -has epidural for pain control changed Cipro/Flagyl to IV Zosyn post-op for peritonitis -continue Maintenance IV fluids, replace lytes as needed -IS q1 hour while awake -Zofran PRN for nausea -IV dilaudid, toradol prn pain as well as w/ epidural -follow CBC, CMP (2) Sepsis: POA, resolved (3) Chronic hyponatremia: Patient with a history of chronic hyponatremia being followed by Dr. Harper for that and trigeminal neuralgia. Secondary to Carbatrol and perhaps slightly worse than baseline here due to dehydration from fevers and poor po intake Na+ up and stable at 132 today from 125 on admission after being on NS IVFs -Trend BMP -Monitor for neurological abnormalities (4) Anxiety disorder: Patient with a history of anxiety, exacerbated here by acute illness -continue on Lorazepam 4 times daily which she takes on a scheduled basis (5) Trigeminal neuralgia: Patient endorsing recent exacerbation of her facial pain--> seen routinely by Neuro Requested Neuro consult here by patient--> increased gabapentin to 800mg tid Pain is now much improved in the face, but she is also not chewing any food which usually exacerbates her pain -checked carbamazipine level-7.8 and acceptable to Neuro -Continue home Carbatrol 200mg po bid -has tried multiple other medications all with various side effects -may need referral to [facility] tx in future as per Neuro (6) Diarrhea: started after admission, thought to be worsened by po contrast from her CT scan C. diff checked and is negative -continue IVF hydration -now s/p sigmoid colectomy (7) Hypokalemia: replace with IV K-phos follow level in AM (8) Hypophosphatemia: replace with IV K-Phos follow BMP (9) DVT prophylaxis: SCDs Heparin SQ to start in the AM--> discussed with Anesthesia Dr. Mcwilliams who conferred with Dr. Reis--> OK TO BE ON HEPARIN SQ WITH EPIDURAL IN PLACE BUT TIMING OF PULLING EPIDURAL NEEDS TO BE ARRANGED AROUND HEPARIN DOSING Dispo-continued stay Admission and Anticipated Discharge Date Admission Date: March 09, 2020 Anticipated date of discharge: 03/16/20 Subjective Pt seen just after return from PACU/OR where she spent the majority of the day. She reports having significantly worsening pain through the night in the abdomen, spiked a fever and was taken urgently for laparotomy. Surgeon found perforated bowel and fecal peritonitis. Had colectomy and colostomy. When I saw her, she had an epidural in place and no abd pain, feeling much better. Denied chest pain or SOB, no nausea. No current jaw pain. Review of Systems Review of Systems: All systems reviewed & are unremarkable except as noted in HPI & below Physical Exam Constitutional: WD/WN, vitals as above Eyes: + anicteric sclerae ENMT: Ears: no hearing impairment Mouth: + oral mucosal abnormality (dry mucus membranes) Neck: trachea midline, no thyromegaly Respiratory: normal respiratory effort, lungs clear to auscultation Cardiovascular: RRR, no murmur, no edema Chest (Breasts): Chest: normal inspection of chest Gastrointestinal (Abdomen): Inspection/Auscultation: + hypoactive bowel sounds; + abdomen abnormal to inspection (large dressing c/d/i, colostomy LLQ with small amount serosang drainage) and abdomen not distended Percussion/Palpation: abdomen soft; abdomen nontender Musculoskeletal: Extremities: extremities normal to inspection; no cyanosis and no clubbing Skin: no rashes, warm and dry Neurologic: moves all extremities and awake; no focal motor deficits Psychiatric: Orientation: alert, oriented x 3 and cooperative Affect: + anxious affect Lymphatic: no lymphedema Results & Data Results & Data ([facility]) Vital Signs (Past 12 Hours) Vital Signs Temp Pulse Pulse Pulse Resp BP Pulse Ox 03/11/20 16:30 36.5 C 83 16 116/78 94 03/11/20 15:20 80 21 106/62 94 03/11/20 15:05 78 20 108/64 94 03/11/20 14:50 79 21 106/65 95 03/11/20 14:35 87 21 98/60 L 94 03/11/20 14:20 36.4 C L 84 20 110/61 94 03/11/20 14:10 88 18 105/58 L 95 03/11/20 14:00 36.8 C 97 H 16 98/59 L 94 03/11/20 09:48 38.5 C H 113 H 22 129/69 93 03/11/20 07:31 37.4 C 116 H 20 153/80 H 90 Laboratory Results 03/11/20 03/11/20 Range/Units 05:34 05:34 WBC 6.23 (4.8-10.8) K/uL RBC 3.78 L (4.2-5.4) M/uL Hgb 11.9 L (12.0-16.0) g/dL Hct 34.8 L (37-47) % MCV 92.1 (80-100) fL MCH 31.5 (25-34) pg MCHC 34.2 (32-36) g/dL RDW Std Deviation 44.7 (36.4-46.3) fL RDW Coeff of [place] 13.2 (11.5-14.5) % Plt Count 287 (130-400) K/uL MPV 8.8 (7.4-10.4) fL Immature Gran % (Auto) 0.6 % Neut % (Auto) 86.7 % Lymph % (Auto) 7.7 % [place] % (Auto) 4.3 % Eos % (Auto) 0.5 % Baso % (Auto) 0.2 % Immature Gran # (Auto) 0.04 H (0.00-0.02) K/uL Neut # (Auto) 5.40 (1.4-6.5) K/uL Lymph # (Auto) 0.48 L (1.2-3.4) K/uL [place] # (Auto) 0.27 (0.11-0.59) K/uL Eos # (Auto) 0.03 (0-0.5) K/uL Baso # (Auto) 0.01 (0-0.2) K/uL Sodium 132 L (136-145) mmol/L Potassium 3.3 L (3.5-5.1) mmol/L Chloride 106 (98-107) mmol/L Carbon Dioxide 19 L (21-32) mmol/L Anion Gap 7.0 (3-11) BUN 8 (7-18) mg/dl Creatinine 0.58 L (0.6-1.2) mg/dl Est Cr Clr Drug Dosing 97.4 ml/min Est GFR ( Amer) 110.5 Est GFR (Non-Af Amer) 95.4 BUN/Creatinine Ratio 13.8 (10-20) Glucose 82 (70-99) mg/dl Calcium 8.0 L (8.5-10.1) mg/dl Phosphorus 1.6 L (2.5-4.9) mg/dl Magnesium 2.0 (1.8-2.4) mg/dl PG Care Time/CCT Total # of Minutes Spent Total Time Spent with Patient: Total time spent is greater than 50% in coordination of care (as documented) at patient's floor/unit and/or counseling patient: Coding Level of Care Code 63978 Subseq Hosp Care Lvl 3 Diagnoses Diverticulitis of colon with perforation K57.20 Diverticulitis bleeding: without bleeding Sepsis A41.9 Chronic hyponatremia E87.1 Anxiety disorder F41.9 Trigeminal neuralgia G50.0 Diarrhea R19.7 Hypokalemia E87.6 Hypophosphatemia E83.39 DVT prophylaxis Z29.9 (1) Diverticulitis of colon with perforation Diverticulitis bleeding: without bleeding Qualified Code(s): K57.20 - Diverticulitis of large intestine with perforation and abscess without bleeding
[2020-03-11] MEDS: PIPERACILLIN/TAZOBACTAM 3.375 GM in DEXTROSE 5% 100 ML IV SCH (21:04)
[2020-03-11] MEDS ORDERED: ONDANSETRON INJ 2 MG/ML 2 ML VIAL IV ONE (22:15)
[2020-03-12] MEDS: DiphenhydrAMINE HCL 50 MG/ML VIAL IV PRN ×4 (00:10→21:34)
[2020-03-12] MEDS: ONDANSETRON INJ 2 MG/ML 2 ML VIAL IV PRN ×4 (00:11→16:36)
[2020-03-12] MEDS: NSS + 20MEQ KCL 20 MEQ/1,000 ML BAG IV SCH ×3 (01:40→21:37)
[2020-03-12] MEDS: PIPERACILLIN/TAZOBACTAM 3.375 GM in DEXTROSE 5% 100 ML IV SCH ×3 (05:18→21:13)
[2020-03-12] MEDS: CARBATROL PO SCH ×3 (05:20→17:39)
[2020-03-12] MEDS: BUPIVACAINE 0.0625% EPI PRN ×3 (05:39→17:18)
[2020-03-12] MEDS: FENTANYL EPI PRN ×3 (05:39→17:18)
[2020-03-12 06:03] LABS: Basophils # (auto) 0.02 K/uL (0-0.2); Basophils % (auto) 0.2 %; Eosinophils # (auto) 0.02 K/uL (0-0.5); Eosinophils % (auto) 0.2 %; Hematocrit (blood only) 33.7 % (37-47); Hemoglobin 11.5 g/dL (12.0-16.0); Immature Granulocytes # (auto) 0.05 K/uL (0.00-0.02); Immature Granulocytes % (auto) 0.4 %; Lymphocytes # (auto) 0.35 K/uL (1.2-3.4); Lymphocytes % (auto) 3.1 %; Mean Corpuscular Hemoglobin 31.9 pg (25-34); Mean Corpuscular Hgb Conc 34.1 g/dL (32-36); Mean Corpuscular Volume 93.4 fL (80-100); Mean Platelet Volume 8.3 fL (7.4-10.4); Monocytes % (auto) 4.4 %; Neutrophils # (auto) 10.43 K/uL (1.4-6.5); Neutrophils % (auto) 91.7 %; Platelet Count 287 K/uL (130-400); RDW Coefficient of Variation 13.6 % (11.5-14.5); RDW Standard Deviation 46.5 fL (36.4-46.3); Red Blood Count 3.61 M/uL (4.2-5.4); White Blood Count 11.37 K/uL (4.8-10.8)
--- NOTE | 2020-03-12 06:31 | Surgery Progress Note ---
Date of Service March 12, 2020 Assessment & Plan (1) Peritonitis: Status post laparotomy, colon resection with end colostomy, abdominal washout For perforated diverticulitis with diffuse peritonitis Patient is awake and alert she does have her epidural in place-plan is for 48 hours IV pain medicine tomorrow Continue IV antibiotics -Zosyn Continue Jhaveri catheter today possibly removed tomorrow Sips of clear liquids today-gradually increase over the weekend Wound and stoma care Patient may ambulate in the hallway after her epidural is out-of bed to chair while the epidural is in place Dr. Allen is covering over the weekend Results & Data Vital Signs (Past 12 Hours) Vital Signs Temp Pulse Pulse Resp BP Pulse Ox 03/12/20 02:37 36.6 C 108 H 16 107/66 91 03/11/20 23:06 36.8 C 84 16 107/68 96 03/11/20 18:33 36.6 C 86 16 112/69 96 PG Care Time/CCT Total # of Minutes Spent Total Time Spent with Patient: Total time spent is greater than 50% in coordination of care (as documented) at patient's floor/unit and/or counseling patient: Coding Level of Care Code None Diagnoses Peritonitis K65.9
[2020-03-12 06:45] LABS: Albumin Globulin Ratio 0.8 (0.9-2); Albumin Level 2.5 gm/dl (3.4-5.0); BUN Creatinine Ratio 14.5 (10-20); Bilirubin,Total 0.5 mg/dl (0.2-1); Calcium 7.7 mg/dl (8.5-10.1); Creatinine Clr Calc Pharmacy 108.7 ml/min; Est GFR (African American) 114.6; Est GFR (Non-African American) 98.9; Globulin 3.1 gm/dl (2.5-4.0); Phosphorus 1.6 mg/dl (2.5-4.9); Potassium 3.9 mmol/L (3.5-5.1); Total Protein 5.6 gm/dl (6.4-8.2)
[2020-03-12] MEDS: HEPARIN SOD 5,000 UNIT/0.5 ML VIAL SQ SCH ×2 (08:30→21:19)
--- NOTE | 2020-03-12 08:44 | Neurology Progress Note ---
Date of Service March 12, 2020 Assessment & Plan (1) Trigeminal neuralgia of left side of face: (2) Hyponatremia: (3) Anxiety disorder: Patient has a longstanding (since 2005) history of intermittent significant left facial pain, consistent with V3 (and V2) trigeminal neuralgia. She has been refractory to some medications and side effects to others. More recently she has had a progressive course with more pain and as of February 24 she was increased to her current Carbatrol ER and gabapentin doses. She was still experiencing pain on admission but since changes in dosage were made March 09 she is improved, and currently, has no facial pain. She has chronic hyponatremia from carbamazepine. It is typically been between 124 and 127, which does not give her any issues as far as I am aware. Patient will get nervous if it falls below 124, but she has tolerated the low 120s. This morning, sodium was 133. Carbamazepine level was mid-normal at 7.8. She has a history of anxiety somewhat controlled with lorazepam. This is mostly a function of how much facial pain she is having. Mood is much worse this morning because her pain and impending surgery. Currently, she is 1 day postop for perforated diverticulitis, post laparotomy with colonic resection/colostomy and abdominal washout by Dr. Luciano. She has some abdominal pain but is stable. Recommendations: 1. Continue Carbatrol ER (her own home medication) 200 milligrams 3 times a day. 2. When she is able to restart gabapentin (after fentanyl discontinue), then continue gabapentin, 800 milligrams 3 times daily. The patient at home uses the 300 milligram capsules because the (600mg and 800 milligram) pills are large and harder to swallow. She could be given a total daily dose of 2400 milligrams gabapentin by using combination of the 300 milligram capsules. 4. Since medications seem to have failed overall, as an outpatient, I am going to refer her to [facility] (or [facility]) for consideration of surgical procedures or gamma knife for trigeminal neuralgia treatment. Overall, I spent a total of 25 minutes with this case including review of records, direct evaluation the patient at bedside, and discussion of the case with the patient at bedside (and RN at bedside), including differential diagnosis and treatment options. Admission and Anticipated Discharge Date Admission Date: March 09, 2020 Anticipated date of discharge: 03/16/20 Subjective Patient underwent laparoscopy with colon resection and colostomy as well as abdominal washout. She had peritonitis secondary to perforated diverticulitis. This morning, she is in some abdominal pain but is helped with the fentanyl given to her. Currently she has no face pain on the left. She is concerned a bout the fact that she can't get gabapentin while on fentanyl. Blood pressure is 129/70 with a temperature of 37.6. CBC was stable with anemia and Chem profile was remarkable for low calcium and phosphorus. Blood cultures have all been negative. C difficile titer was. Results & Data ([facility]) Vital Signs (Past 12 Hours) Vital Signs Temp Pulse Resp BP BP Pulse Ox 03/12/20 07:45 37.6 C H 93 H 18 129/79 94 03/12/20 02:37 36.6 C 108 H 16 107/66 91 03/11/20 23:06 36.8 C 84 16 107/68 96 Exam (Neuro) Physical Exam: She is awake and alert. Speech is without aphasia or dysarthria. Mood and affect are normal appropriate. Thought processes are fairly intact Extraocular eye muscles are intact without nystagmus. There is no facial droop and tongue is midline. Limb movement is symmetrical and there are no tremors or abnormal involuntary movements. PG Care Time/CCT Total # of Minutes Spent Total Time Spent with Patient: Total time spent is greater than 50% in coordination of care (as documented) at patient's floor/unit and/or counseling patient: Coding Level of Care Code 87885 Subseq Hosp Care Lvl 2 Diagnoses Trigeminal neuralgia of left side of face G50.0 Hyponatremia E87.1 Anxiety disorder F41.9
[2020-03-12] MEDS ORDERED: HEPARIN SOD 5,000 UNIT/0.5 ML VIAL SQ SCH (09:00)
[2020-03-12] MEDS ORDERED: POTASSIUM PHOS 3 MMOL/1 ML INFUSION IV STA (10:46)
[2020-03-12] MEDS ORDERED: POTASSIUM PHOSPHATE 21 MMOL in SODIUM CHLORIDE 0.9% 500 ML IV ONE (11:30)
--- NOTE | 2020-03-12 14:09 | Anesthesiology Progress Note ---
Date of Service March 12, 2020 Subjective POD #1 laparotomy and bowel resection. Epidural PCEA running. Catheter site clean and dry. Patient complains of some pain and she is pushing her PCEA button, but she seems quite comfortable in bed. Sensory level is excellent bilat up to ~T4. Vital signs adequate. Plan to continue PCEA infusion through tomorrow. Toradol RTC and narcotics PRN for breakthrough pain. OOB to chair as tolerated. Can ambulate after pulling catheter tomorrow. Physical Exam Vital Signs: Last Vital Signs Temp 37.1 C 03/12/20 12:21 Pulse 86 03/12/20 12:21 Resp 15 03/12/20 12:21 BP 152/80 H 03/12/20 12:21 Pulse Ox 98 03/12/20 12:21 Results & Data Medications Administered Diphenhydramine HCl (Benadryl) 25 mg IV Q6H PRN PRN Reason: Itching Stop: 04/10/20 11:38 Last Admin: 03/12/20 07:04 Dose: 25 mg Documented by: [id number] Admin: 03/12/20 00:10 Dose: 25 mg Documented by: [id number] Fentanyl/Bupivacaine/Sodium Chlor (Fentanyl 2.5mcg/Bupiv 0.0625%) 100 ml EPI PRN PRN; Protocol PRN Reason: Pain Stop: 03/25/20 11:38 Last Admin: 03/12/20 11:18 Dose: 8 ml Documented by: [id number] Cosigned by: [id number] Admin: 03/12/20 05:39 Dose: 8 ml Documented by: [id number] Cosigned by: [id number] Admin: 03/11/20 22:57 Dose: 8 ml Documented by: [id number] Cosigned by: [id number] Admin: 03/11/20 14:49 Dose: 8 ml Documented by: [id number] Cosigned by: [id number] Heparin Sodium (Porcine) (Heparin Sodium (Porcine)) 5,000 units SQ Q12 JEFF Stop: 04/11/20 08:59 Last Admin: 03/12/20 08:30 Dose: 5,000 units Documented by: [id number] Cosigned by: [id number] Potassium Chloride/Sodium Chloride (Normal Saline W/20 Meq Kcl) 20 meq in 1,000 mls @ 100 mls/hr IV .Q10H JEFF Stop: 04/10/20 14:14 Last Admin: 03/12/20 11:44 Dose: 100 mls/hr Documented by: [id number] Infusion: 03/12/20 11:40 Dose: 100 mls/hr Documented by: [id number] Admin: 03/12/20 01:40 Dose: 100 mls/hr Documented by: [id number] Infusion: 03/12/20 01:40 Dose: 100 mls/hr Documented by: [id number] Admin: 03/11/20 16:25 Dose: 100 mls/hr Documented by: [id number] Piperacillin Sod/Tazobactam (Sod 3.375 gm/ Dextrose) 115 mls @ 28.75 mls/hr IV Q8H [facility]; Protocol Stop: 03/21/20 21:59 Last Infusion: 03/12/20 10:47 Dose: 0 mls/hr Documented by: [id number] Admin: 03/12/20 05:18 Dose: 28.8 mls/hr Documented by: [id number] Infusion: 03/12/20 01:17 Dose: 0 mls/hr Documented by: [id number] Admin: 03/11/20 21:04 Dose: 28.8 mls/hr Documented by: [id number] Potassium Phosphate 21 mmol/ (Sodium Chloride) 507 mls @ 145 mls/hr IV TODAY@1130 ONE Stop: 03/12/20 14:59 Last Admin: 03/12/20 11:44 Dose: 145 mls/hr Documented by: [id number] Non-Formulary Medication (Non-Formulary Patient's Own Med) 1 ea PO TID@0600,1130,1630 [facility] Stop: 04/08/20 16:29 Last Admin: 03/12/20 11:41 Dose: 1 mg Documented by: [id number] Admin: 03/12/20 05:20 Dose: 200 mg Documented by: [id number] Admin: 03/11/20 17:57 Dose: 200 mg Documented by: [id number] Admin: 03/11/20 13:45 Dose: Not Given Documented by: [id number] Admin: 03/11/20 05:47 Dose: 200 mg Documented by: [id number] Admin: 03/10/20 15:41 Dose: 200 mg Documented by: [id number] Admin: 03/10/20 11:43 Dose: 200 mg Documented by: [id number] Admin: 03/10/20 05:20 Dose: 200 mg Documented by: [id number] Admin: 03/09/20 16:41 Dose: 200 mg Documented by: [id number] Ondansetron HCl (Zofran) 6 mg IV Q6H PRN PRN Reason: Nausea Stop: 04/08/20 01:13 Last Admin: 03/11/20 03:15 Dose: 6 mg Documented by: [id number] Admin: 03/10/20 20:44 Dose: 6 mg Documented by: [id number] Admin: 03/10/20 14:21 Dose: 6 mg Documented by: [id number] Admin: 03/10/20 04:05 Dose: 6 mg Documented by: [id number] Admin: 03/09/20 20:58 Dose: 6 mg Documented by: [id number] Admin: 03/09/20 08:59 Dose: 6 mg Documented by: [id number] Admin: 03/09/20 01:56 Dose: 6 mg Documented by: [id number] Ondansetron HCl (Zofran) 4 mg IV Q4H PRN PRN Reason: Nausea And Vomiting Stop: 04/10/20 11:38 Last Admin: 03/12/20 11:49 Dose: 4 mg Documented by: [id number]
--- NOTE | 2020-03-12 16:22 | Hospitalist Progress Note ---
Date of Service March 12, 2020 Assessment & Plan (1) Diverticulitis of colon with perforation: Patient is a 69-year-old female with a past medical history of Chronic hyponatremia, trigeminal neuralgia, anxiety disorder, IBS, history of breast cancer who presents for evaluation of abdominal pain and found to have diverticulitis with microperf and developing phlegmon. CT abd/pel with po con on admission with: 1. "Considerable progression of findings of acute diverticulitis involving the descending as well as proximal to mid sigmoid colon. 2. Considerable progression of the pericolonic infiltrative change as well as wall thickening of these regions. 3. Extraluminal small air pockets medial and posterior to the colon consistent with walled off perforations. 4. Probable developing phlegmon formation given this appearance. 5. No evidence for true fluid abscess process at this time. 6. No evidence for nonobstructive bowel pattern." Was slightly improved but then acutely worsened overnight on 03/11 with pain and fever--> was taken to the OR --> found to have perforated colon with feculent peritonitis--> had sigmoid colectomy and end colostomy performed by Dr. Luciano WBC count up slightly post-op to 11k which is expected, afebrile, hgb post op stable at 11.5 Having some nausea from fentanyl in epidural -post-op management as per Surgery-stable post-op day #1 -with drain in place can have ice chips and increase to small sips of clears, ok to have po meds -has epidural for pain control until tomorrow -OOB to chair is ok wih Anesthesia with epidural in place continue IV Zosyn for peritonitis -continue Maintenance IV fluids, replace lytes as needed -IS q1 hour while awake -Zofran PRN for nausea -IV dilaudid, toradol prn pain as well as w/ epidural -follow CBC, CMP (2) Sepsis: POA, resolved (3) Chronic hyponatremia: Patient with a history of chronic hyponatremia being followed by Dr. Harper for that and trigeminal neuralgia. Secondary to Carbatrol and perhaps slightly worse than baseline here due to dehydration from fevers and poor po intake Na+ up and stable at 137 today from 125 on admission after being on NS IVFs -Trend BMP -Monitor for neurological abnormalities (4) Anxiety disorder: Patient with a history of anxiety, exacerbated here by acute illness -takes Lorazepam 4 times daily on a scheduled basis at home ---> this is ON HOLD while has epidural as per Anesthesia orders -having some increased anxiety, mild tremor today could be benzo withdrawal -continue to watch for withdrawal and restart ativan po tomorrow after epidural removed (5) Trigeminal neuralgia: Patient endorsing recent exacerbation of her facial pain on admission--> seen routinely by Neuro Requested Neuro consult here by patient--> increased gabapentin to 800mg tid which is also ON HOLD while has epidural in place Pain is now much improved in the face, but she is also not chewing any food which usually exacerbates her pain -checked carbamazipine level-7.8 and acceptable to Neuro -Continue home Carbatrol 200mg po bid -has tried multiple other medications all with various side effects -may need referral to [facility] tx in future as per Neuro (6) Diarrhea: started after admission, thought to be worsened by po contrast from her CT scan C. diff checked and is negative -continue IVF hydration -now s/p sigmoid colectomy, no stool yet in ostomy (7) Hypokalemia: replaced and normal now follow level in AM (8) Hypophosphatemia: replace with IV K-Phos today follow BMP, Phos in AM (9) DVT prophylaxis: SCDs Heparin SQ--> discussed with Anesthesia Dr. Mcwilliams who conferred with Dr. Reis--> OK TO BE ON HEPARIN SQ WITH EPIDURAL IN PLACE BUT TIMING OF PULLING EPIDURAL NEEDS TO BE ARRANGED AROUND HEPARIN DOSING Dispo-continued stay Admission and Anticipated Discharge Date Admission Date: March 09, 2020 Anticipated date of discharge: 03/15/20 Subjective Pt very anxious today and having more pain in abdomen, hitting button for bolus in her epidural more often. Also getting nauseated she thinks from the fentanyl. Has not been given her usual ativan and gabapentin due to having the epidural in place. She was very anxious about when she looked at her colostomy today and wondered why the prolapsed intestine tissue was not emptied out with the liquid in the bag. I piyush her a diagram of her colostomy to explain the anatomy and then she felt better about it. I discussed her case with Neurology today. She denies jaw pain but is thirsty and has a dry mouth. Review of Systems Review of Systems: All systems reviewed & are unremarkable except as noted in HPI & below (no calf pain, no chest pain or SOB) Physical Exam Constitutional: WD/WN, vitals as above Eyes: + anicteric sclerae ENMT: Ears: no hearing impairment Mouth: + oral mucosal abnormality (dry mucus membranes) Neck: trachea midline, no thyromegaly Respiratory: normal respiratory effort, lungs clear to auscultation Cardiovascular: RRR, no murmur, no edema Chest (Breasts): Chest: normal inspection of chest Gastrointestinal (Abdomen): Inspection/Auscultation: + hypoactive bowel sounds; + abdomen abnormal to inspection (large dressing c/d/i, colostomy LLQ with small amount serosang drainage) and abdomen not distended Percussion/Palpation: abdomen soft; abdomen nontender Musculoskeletal: Extremities: extremities normal to inspection; no cyanosis and no clubbing Skin: no rashes, warm and dry Neurologic: moves all extremities and awake; no focal motor deficits Motor/Sensory: + tremor (mild) Psychiatric: Orientation: alert, oriented x 3 and cooperative Affect: + anxious affect Lymphatic: no lymphedema Results & Data Results & Data ([facility]) Vital Signs (Past 12 Hours) Vital Signs Temp Pulse Resp BP BP Pulse Ox 03/12/20 15:07 36.9 C 88 18 146/88 H 90 03/12/20 12:21 37.1 C 86 15 152/80 H 98 03/12/20 08:00 37.3 C 03/12/20 07:45 37.6 C H 93 H 18 129/79 94 Laboratory Results 03/12/20 03/12/20 Range/Units 05:51 05:51 WBC 11.37 H (4.8-10.8) K/uL RBC 3.61 L (4.2-5.4) M/uL Hgb 11.5 L (12.0-16.0) g/dL Hct 33.7 L (37-47) % MCV 93.4 (80-100) fL MCH 31.9 (25-34) pg MCHC 34.1 (32-36) g/dL RDW Std Deviation 46.5 H (36.4-46.3) fL RDW Coeff of [place] 13.6 (11.5-14.5) % Plt Count 287 (130-400) K/uL MPV 8.3 (7.4-10.4) fL Immature Gran % (Auto) 0.4 % Neut % (Auto) 91.7 % Lymph % (Auto) 3.1 % [place] % (Auto) 4.4 % Eos % (Auto) 0.2 % Baso % (Auto) 0.2 % Immature Gran # (Auto) 0.05 H (0.00-0.02) K/uL Neut # (Auto) 10.43 H (1.4-6.5) K/uL Lymph # (Auto) 0.35 L (1.2-3.4) K/uL [place] # (Auto) 0.50 (0.11-0.59) K/uL Eos # (Auto) 0.02 (0-0.5) K/uL Baso # (Auto) 0.02 (0-0.2) K/uL Sodium 137 (136-145) mmol/L Potassium 3.9 D (3.5-5.1) mmol/L Chloride 110 H (98-107) mmol/L Carbon Dioxide 17 L (21-32) mmol/L Anion Gap 10.0 (3-11) BUN 8 (7-18) mg/dl Creatinine 0.52 L (0.6-1.2) mg/dl Est Cr Clr Drug Dosing 108.7 ml/min Est GFR ( Amer) 114.6 Est GFR (Non-Af Amer) 98.9 BUN/Creatinine Ratio 14.5 (10-20) Glucose 107 H (70-99) mg/dl Calcium 7.7 L (8.5-10.1) mg/dl Phosphorus 1.6 L (2.5-4.9) mg/dl Magnesium 2.0 (1.8-2.4) mg/dl Total Bilirubin 0.5 (0.2-1) mg/dl AST 19 (15-37) U/L ALT 47 (12-78) U/L Alkaline Phosphatase 97 (45-117) U/L Total Protein 5.6 L (6.4-8.2) gm/dl Albumin 2.5 L (3.4-5.0) gm/dl Globulin 3.1 (2.5-4.0) gm/dl Albumin/Globulin Ratio 0.8 L (0.9-2) PG Care Time/CCT Total # of Minutes Spent Total Time Spent with Patient: Total time spent is greater than 50% in coordination of care (as documented) at patient's floor/unit and/or counseling patient: Coding Level of Care Code 94145 Subseq Hosp Care Lvl 3 Diagnoses Diverticulitis of colon with perforation K57.20 Diverticulitis bleeding: without bleeding Sepsis A41.9 Chronic hyponatremia E87.1 Anxiety disorder F41.9 Trigeminal neuralgia G50.0 Diarrhea R19.7 Hypokalemia E87.6 Hypophosphatemia E83.39 DVT prophylaxis Z29.9 (1) Diverticulitis of colon with perforation Diverticulitis bleeding: without bleeding Qualified Code(s): K57.20 - Diverticulitis of large intestine with perforation and abscess without bleeding
[2020-03-12] MEDS: KETOROLAC 30 MG/ML VIAL IV PRN (16:53)
[2020-03-13] MEDS: ONDANSETRON INJ 2 MG/ML 2 ML VIAL IV PRN ×3 (00:38→21:02)
[2020-03-13] MEDS: KETOROLAC 30 MG/ML VIAL IV PRN ×3 (00:38→12:29)
[2020-03-13] MEDS: BUPIVACAINE 0.0625% EPI PRN (04:09)
[2020-03-13] MEDS: FENTANYL EPI PRN (04:09)
[2020-03-13 05:58] LABS: Basophils # (auto) 0.02 K/uL (0-0.2); Basophils % (auto) 0.2 %; Eosinophils # (auto) 0.15 K/uL (0-0.5); Eosinophils % (auto) 1.4 %; Hematocrit (blood only) 35.5 % (37-47); Hemoglobin 11.9 g/dL (12.0-16.0); Immature Granulocytes # (auto) 0.05 K/uL (0.00-0.02); Immature Granulocytes % (auto) 0.5 %; Lymphocytes # (auto) 0.45 K/uL (1.2-3.4); Lymphocytes % (auto) 4.3 %; Mean Corpuscular Hemoglobin 31.3 pg (25-34); Mean Corpuscular Hgb Conc 33.5 g/dL (32-36); Mean Corpuscular Volume 93.4 fL (80-100); Mean Platelet Volume 8.6 fL (7.4-10.4); Monocytes # (auto) 0.63 K/uL (0.11-0.59); Neutrophils # (auto) 9.23 K/uL (1.4-6.5); Neutrophils % (auto) 87.6 %; Platelet Count 337 K/uL (130-400); RDW Coefficient of Variation 13.8 % (11.5-14.5); RDW Standard Deviation 46.8 fL (36.4-46.3); White Blood Count 10.53 K/uL (4.8-10.8)
[2020-03-13] MEDS: PIPERACILLIN/TAZOBACTAM 3.375 GM in DEXTROSE 5% 100 ML IV SCH ×3 (06:04→22:04)
[2020-03-13] MEDS: CARBATROL PO SCH ×4 (06:06→16:47)
[2020-03-13 06:29] LABS: BUN Creatinine Ratio 10.5 (10-20); Calcium 7.8 mg/dl (8.5-10.1); Creatinine Clr Calc Pharmacy 115.3 ml/min; Est GFR (African American) 116.8; Est GFR (Non-African American) 100.8; Potassium 4.3 mmol/L (3.5-5.1)
[2020-03-13 06:47] LABS: Phosphorus 1.5 mg/dl (2.5-4.9)
[2020-03-13] MEDS: NSS + 20MEQ KCL 20 MEQ/1,000 ML BAG IV SCH ×2 (08:04→20:53)
[2020-03-13] MEDS: HEPARIN SOD 5,000 UNIT/0.5 ML VIAL SQ SCH ×2 (08:06→20:54)
[2020-03-13] MEDS ORDERED: SODIUM PHOSPHATE 3 MMOL/1 ML INFUSION IV STA (08:47)
[2020-03-13] MEDS ORDERED: SODIUM PHOSPHATE 21 MMOL in SODIUM CHLORIDE 0.9% 500 ML IV ONE (09:30)
--- NOTE | 2020-03-13 10:45 | Surgery Progress Note ---
Date of Service March 13, 2020 Assessment & Plan (1) Diverticulitis large intestine: POD #2 [place] some drainage but no function yet in colostomy sips of clears ambulate remove epidural and st Subjective pain controlled some drainage in colostomy bag anxious with epidural will remove along with st pain control per anesthesia or medical team, wants to avoid narcotics Review of Systems Constitutional: no fever and no chills Respiratory: no dyspnea Cardiovascular: no chest pain Gastrointestinal: + abdominal pain; no nausea and no vomiting Genitourinary: no dysuria Physical Exam Constitutional: well developed and well nourished Neck: trachea midline Respiratory: normal respiratory effort, lungs clear to auscultation Cardiovascular: RRR, no murmur, no edema Gastrointestinal (Abdomen): Inspection/Auscultation: normal bowel sounds; abdomen not distended Percussion/Palpation: + abdomen tender and abdomen soft Musculoskeletal: Head/Neck/Chest: normocephalic and head atraumatic Skin: no rashes, warm and dry Results & Data Vital Signs (Past 12 Hours) Vital Signs Temp Pulse Resp BP Pulse Ox Pulse Ox 03/13/20 07:10 36.7 C 87 18 130/82 96 03/13/20 03:20 36.6 C 89 18 143/87 H 97 03/13/20 00:05 96 03/12/20 22:59 36.8 C 95 H 18 144/81 H 96 (1) Diverticulitis large intestine Diverticulitis bleeding: with bleeding Diverticulitis complication: without perforation or abscess Qualified Code(s): K57.33 - Diverticulitis of large intestine without perforation or abscess with bleeding
[2020-03-13] MEDS ORDERED: LORazepam 0.5 MG TAB PO PRN (11:45)
[2020-03-13] MEDS ORDERED: Nursing to Pharmacy Communication ONE (12:22)
[2020-03-13] MEDS: SODIUM CHLORIDE 0.9% 1000ML 1,000 ML IV SCH ×2 (12:40→12:41)
[2020-03-13] MEDS: GABAPENTIN 800 MG TAB PO SCH ×2 (14:15→20:53)
[2020-03-13] MEDS ORDERED: ONDANSETRON INJ 2 MG/ML 2 ML VIAL ONE (14:49)
--- NOTE | 2020-03-13 14:55 | Anesthesia Procedure Note ---
Date of Service March 13, 2020 Anesthesia Post Epidural Note Vital Signs Vital Signs: Temp Pulse Resp BP Pulse Ox 36.7 C 87 18 130/82 96 03/13/20 07:10 03/13/20 07:10 03/13/20 07:10 03/13/20 07:10 03/13/20 07:10 Pain Intensity Abdomen: Pain Intensity: 5 Notes Mental Status: alert / awake / arousable Nausea / Vomiting: adequately controlled Pain: adequately controlled Airway Patency, RR, SpO2: stable & adequate BP & HR: stable & adequate Hydration State: stable & adequate Neuraxial Anesthesia: was administered and sensory block resolved Anesthetic Complications: no major complications apparent and Pt Satisfied with anesthetic care Epidural: Removed without complications and With tip intact
--- NOTE | 2020-03-13 14:57 | Anesthesiology Progress Note ---
Date of Service March 13, 2020 Subjective Pain reasonably well conrolled. Using narcotics PRN. Sitting up in bed today. Epidural catheter removed by myself. Tip intact. Patient may ambulate when sensory block is resolved. Will sign off care and differ pain control back to primary/surgical team. Thank you. Physical Exam Vital Signs: Last Vital Signs Temp 36.7 C 03/13/20 07:10 Pulse 87 03/13/20 07:10 Resp 18 03/13/20 07:10 BP 130/82 03/13/20 07:10 Pulse Ox 96 03/13/20 07:10 Results & Data Medications Administered Gabapentin (Neurontin) 800 mg PO TID [facility] Stop: 04/12/20 13:59 Last Admin: 03/13/20 14:15 Dose: Not Given Documented by: [id number] Heparin Sodium (Porcine) (Heparin Sodium (Porcine)) 5,000 units SQ Q12 JEFF Stop: 04/11/20 08:59 Last Admin: 03/13/20 08:06 Dose: 5,000 units Documented by: [id number] Cosigned by: [id number] Admin: 03/12/20 21:19 Dose: 5,000 units Documented by: [id number] Cosigned by: [id number] Admin: 03/12/20 08:30 Dose: 5,000 units Documented by: [id number] Cosigned by: [id number] Potassium Chloride/Sodium Chloride (Normal Saline W/20 Meq Kcl) 20 meq in 1,000 mls @ 75 mls/hr IV .[id number] [facility] Stop: 04/10/20 14:14 Last Infusion: 03/13/20 14:46 Dose: 75 mls/hr Documented by: [id number] Admin: 03/13/20 08:04 Dose: 100 mls/hr Documented by: [id number] Infusion: 03/13/20 07:37 Dose: 100 mls/hr Documented by: [id number] Infusion: 03/13/20 06:43 Dose: 100 mls/hr Documented by: [id number] Admin: 03/12/20 21:37 Dose: 100 mls/hr Documented by: [id number] Infusion: 03/12/20 21:37 Dose: 100 mls/hr Documented by: [id number] Admin: 03/12/20 11:44 Dose: 100 mls/hr Documented by: [id number] Infusion: 03/12/20 11:40 Dose: 100 mls/hr Documented by: [id number] Admin: 03/12/20 01:40 Dose: 100 mls/hr Documented by: [id number] Infusion: 03/12/20 01:40 Dose: 100 mls/hr Documented by: [id number] Admin: 03/11/20 16:25 Dose: 100 mls/hr Documented by: [id number] Piperacillin Sod/Tazobactam (Sod 3.375 gm/ Dextrose) 115 mls @ 28.75 mls/hr IV Q8H [facility]; Protocol Stop: 03/21/20 21:59 Last Admin: 03/13/20 13:45 Dose: 28.8 mls/hr Documented by: [id number] Infusion: 03/13/20 10:04 Dose: 0 mls/hr Documented by: [id number] Admin: 03/13/20 06:04 Dose: 28.8 mls/hr Documented by: [id number] Infusion: 03/13/20 01:15 Dose: 0 mls/hr Documented by: [id number] Admin: 03/12/20 21:13 Dose: 28.8 mls/hr Documented by: [id number] Infusion: 03/12/20 18:42 Dose: 0 mls/hr Documented by: [id number] Admin: 03/12/20 14:22 Dose: 28.8 mls/hr Documented by: [id number] Infusion: 03/12/20 10:47 Dose: 0 mls/hr Documented by: [id number] Admin: 03/12/20 05:18 Dose: 28.8 mls/hr Documented by: [id number] Infusion: 03/12/20 01:17 Dose: 0 mls/hr Documented by: [id number] Admin: 03/11/20 21:04 Dose: 28.8 mls/hr Documented by: [id number] Sodium Phosphate 21 mmol/ (Sodium Chloride) 507 mls @ 88 mls/hr IV ONE ONE Stop: 03/13/20 15:15 Last Admin: 03/13/20 09:15 Dose: 88 mls/hr Documented by: [id number] Non-Formulary Medication (Non-Formulary Patient's Own Med) 1 ea PO TID@0600,1130,1630 [facility] Stop: 04/08/20 16:29 Last Admin: 03/13/20 09:21 Dose: Not Given Documented by: [id number] Admin: 03/13/20 09:20 Dose: 200 mg Documented by: [id number] Admin: 03/13/20 06:06 Dose: Not Given Documented by: [id number] Admin: 03/12/20 17:39 Dose: 200 mg Documented by: [id number] Admin: 03/12/20 11:41 Dose: 1 mg Documented by: [id number] Admin: 03/12/20 05:20 Dose: 200 mg Documented by: [id number] Admin: 03/11/20 17:57 Dose: 200 mg Documented by: [id number] Admin: 03/11/20 13:45 Dose: Not Given Documented by: [id number] Admin: 03/11/20 05:47 Dose: 200 mg Documented by: [id number] Admin: 03/10/20 15:41 Dose: 200 mg Documented by: [id number] Admin: 03/10/20 11:43 Dose: 200 mg Documented by: [id number] Admin: 03/10/20 05:20 Dose: 200 mg Documented by: [id number] Admin: 03/09/20 16:41 Dose: 200 mg Documented by: [id number]
[2020-03-13] MEDS: FAMOTIDINE 20 MG in SYRINGE 3 ML IV SCH ×2 (15:03→20:53)
--- NOTE | 2020-03-13 15:03 | Hospitalist Progress Note ---
Date of Service March 13, 2020 Assessment & Plan (1) Diverticulitis of colon with perforation: Patient is a 69-year-old female with a past medical history of Chronic hyponatremia, trigeminal neuralgia, anxiety disorder, IBS, history of breast cancer who presents for evaluation of abdominal pain and found to have diverticulitis with microperf and developing phlegmon. CT abd/pel with po con on admission with: 1. "Considerable progression of findings of acute diverticulitis involving the descending as well as proximal to mid sigmoid colon. 2. Considerable progression of the pericolonic infiltrative change as well as wall thickening of these regions. 3. Extraluminal small air pockets medial and posterior to the colon consistent with walled off perforations. 4. Probable developing phlegmon formation given this appearance. 5. No evidence for true fluid abscess process at this time. 6. No evidence for nonobstructive bowel pattern." Was slightly improved but then acutely worsened overnight on 03/10 with pain and fever--> was taken to the OR --> found to have perforated colon with feculent peritonitis--> had sigmoid colectomy and end colostomy performed by Dr. Luciano on 03/11 WBC count trended back to normal, remains afebrile, hgb post op stable at 11.9 Having some nausea from fentanyl in epidural which is now removed so hopefully will improve -post-op management as per Surgery -with drain in place advanced to clears today -epidural for pain control is now removed -OOB to chair and ambulate now continue IV Zosyn for peritonitis -continue Maintenance IV fluids but decrease to 75 mL/hr -replace lytes as needed -IS q1 hour while awake -Zofran and phenergan PRN for nausea -IV toradol 15mg q4h prn pain -follow CBC, CMP, Mag Phos (2) Sepsis: POA, resolved (3) Chronic hyponatremia: Patient with a history of chronic hyponatremia being followed by Dr. Harper for that and trigeminal neuralgia. Secondary to Carbatrol and perhaps slightly worse than baseline here due to dehydration from fevers and poor po intake Na+ up and stable at 137 today from 125 on admission after being on NS IVFs -Trend BMP -Monitor for neurological abnormalities (4) Anxiety disorder: Patient with a history of anxiety, exacerbated here by acute illness and has not received her usual ativan po x 2 days while had epidural as per anesthesia protocol -takes Lorazepam 4 times daily on a scheduled basis at home ---> restart today (5) Trigeminal neuralgia: Patient endorsing recent exacerbation of her facial pain on admission--> seen routinely by Neuro Requested Neuro consult here by patient--> increased gabapentin to 800mg tid-can restart today now that epidural out Pain is now much improved in the face, but she is also not chewing any food which usually exacerbates her pain -checked carbamazipine level-7.8 and acceptable to Neuro -Continue home Carbatrol 200mg po bid -has tried multiple other medications all with various side effects -may need referral to [facility] tx in future as per Neuro (6) Diarrhea: started after admission, thought to be worsened by po contrast from her CT scan C. diff checked and is negative -continue IVF hydration -now s/p sigmoid colectomy, no stool yet in ostomy (7) Hypokalemia: replaced and normal now follow level in AM (8) Hypophosphatemia: Low again today at 1.5, secondary to no po intake -replace with IV K-Phos today follow BMP, Phos in AM (9) Heartburn: start Pepcid 20mg IV bid (10) DVT prophylaxis: SCDs Heparin SQ Dispo-continued stay OOB to chair and ambulate Admission and Anticipated Discharge Date Admission Date: March 09, 2020 Anticipated date of discharge: 03/16/20 Subjective Pt tearful and anxious today. Having a lot of nausea and had some dry heaves when I saw her. She had her epidural out not that long ago and was OOB to chair for a short period. SHe said getting out to the chair "almost killed me." Is also having a lot of heartburn. Wants to know if toradol can be made q4 hours. Review of Systems Review of Systems: All systems reviewed & are unremarkable except as noted in HPI & below (thinks her ankles are a little "puffier" than usual) Physical Exam Constitutional: WD/WN, vitals as above Eyes: + anicteric sclerae ENMT: Ears: no hearing impairment Mouth: oral mucous membranes not dry Neck: trachea midline, no thyromegaly Respiratory: normal respiratory effort, lungs clear to auscultation Cardiovascular: RRR, no murmur, no edema Chest (Breasts): Chest: normal inspection of chest Gastrointestinal (Abdomen): Inspection/Auscultation: + hypoactive bowel sounds; + abdomen abnormal to inspection (large dressing c/d/i, colostomy LLQ with small amount green drainage) and abdomen not distended Percussion/Palpation: + abdomen tender (mild over incision) and abdomen soft; no guarding and abdomen not rigid Musculoskeletal: Extremities: extremities normal to inspection; no cyanosis and no clubbing Skin: no rashes, warm and dry Neurologic: moves all extremities and awake; no focal motor deficits Motor/Sensory: no tremor Psychiatric: Orientation: alert, oriented x 3 and cooperative Affect: + anxious affect and + tearful affect Lymphatic: no lymphedema Results & Data Results & Data ([facility]) Vital Signs (Past 12 Hours) Vital Signs Temp Pulse Resp BP Pulse Ox 03/13/20 07:10 36.7 C 87 18 130/82 96 03/13/20 03:20 36.6 C 89 18 143/87 H 97 Laboratory Results 03/13/20 03/13/20 Range/Units 05:33 05:33 WBC 10.53 (4.8-10.8) K/uL RBC 3.80 L (4.2-5.4) M/uL Hgb 11.9 L (12.0-16.0) g/dL Hct 35.5 L (37-47) % MCV 93.4 (80-100) fL MCH 31.3 (25-34) pg MCHC 33.5 (32-36) g/dL RDW Std Deviation 46.8 H (36.4-46.3) fL RDW Coeff of [place] 13.8 (11.5-14.5) % Plt Count 337 (130-400) K/uL MPV 8.6 (7.4-10.4) fL Immature Gran % (Auto) 0.5 % Neut % (Auto) 87.6 % Lymph % (Auto) 4.3 % [place] % (Auto) 6.0 % Eos % (Auto) 1.4 % Baso % (Auto) 0.2 % Immature Gran # (Auto) 0.05 H (0.00-0.02) K/uL Neut # (Auto) 9.23 H (1.4-6.5) K/uL Lymph # (Auto) 0.45 L (1.2-3.4) K/uL [place] # (Auto) 0.63 H (0.11-0.59) K/uL Eos # (Auto) 0.15 (0-0.5) K/uL Baso # (Auto) 0.02 (0-0.2) K/uL Sodium 137 (136-145) mmol/L Potassium 4.3 (3.5-5.1) mmol/L Chloride 110 H (98-107) mmol/L Carbon Dioxide 22 (21-32) mmol/L Anion Gap 5.0 (3-11) BUN 5 L (7-18) mg/dl Creatinine 0.49 L (0.6-1.2) mg/dl Est Cr Clr Drug Dosing 115.3 ml/min Est GFR ( Amer) 116.8 Est GFR (Non-Af Amer) 100.8 BUN/Creatinine Ratio 10.5 (10-20) Glucose 112 H (70-99) mg/dl Calcium 7.8 L (8.5-10.1) mg/dl Phosphorus 1.5 L* (2.5-4.9) mg/dl Magnesium 2.0 (1.8-2.4) mg/dl PG Care Time/CCT Total # of Minutes Spent Total Time Spent with Patient: Total time spent is greater than 50% in coordination of care (as documented) at patient's floor/unit and/or counseling patient: Coding Level of Care Code 28335 Subseq Hosp Care Lvl 3 Diagnoses Diverticulitis of colon with perforation K57.20 Diverticulitis bleeding: without bleeding Sepsis A41.9 Chronic hyponatremia E87.1 Anxiety disorder F41.9 Trigeminal neuralgia G50.0 Diarrhea R19.7 Hypokalemia E87.6 Hypophosphatemia E83.39 Heartburn R12 DVT prophylaxis Z29.9 (1) Diverticulitis of colon with perforation Diverticulitis bleeding: without bleeding Qualified Code(s): K57.20 - Diverticulitis of large intestine with perforation and abscess without bleeding
[2020-03-13] MEDS: PANTOprazole 40 MG in SYRINGE 0 ML IV SCH (16:47)
[2020-03-13] MEDS: LORazepam 0.5 MG TAB PO PRN (18:04)
[2020-03-13] MEDS: PROMETHAZINE HCL 12.5 MG in SODIUM CHLORIDE 0.9% 50 ML IV PRN (18:35)
[2020-03-14] MEDS: ONDANSETRON INJ 2 MG/ML 2 ML VIAL IV PRN (03:17)
[2020-03-14] MEDS: CARBATROL PO SCH ×3 (05:50→16:10)
[2020-03-14] MEDS: PIPERACILLIN/TAZOBACTAM 3.375 GM in DEXTROSE 5% 100 ML IV SCH ×3 (05:50→22:12)
[2020-03-14 05:54] LABS: Basophils # (auto) 0.01 K/uL (0-0.2); Basophils % (auto) 0.1 %; Hematocrit (blood only) 34.1 % (37-47); Hemoglobin 11.7 g/dL (12.0-16.0); Immature Granulocytes # (auto) 0.09 K/uL (0.00-0.02); Immature Granulocytes % (auto) 0.8 %; Lymphocytes # (auto) 0.35 K/uL (1.2-3.4); Lymphocytes % (auto) 3.1 %; Mean Corpuscular Hemoglobin 31.5 pg (25-34); Mean Corpuscular Hgb Conc 34.3 g/dL (32-36); Mean Corpuscular Volume 91.7 fL (80-100); Mean Platelet Volume 8.7 fL (7.4-10.4); Monocytes # (auto) 0.57 K/uL (0.11-0.59); Monocytes % (auto) 5.1 %; Neutrophils # (auto) 10.26 K/uL (1.4-6.5); Neutrophils % (auto) 90.9 %; Platelet Count 387 K/uL (130-400); RDW Coefficient of Variation 13.6 % (11.5-14.5); RDW Standard Deviation 45.9 fL (36.4-46.3); Red Blood Count 3.72 M/uL (4.2-5.4); White Blood Count 11.28 K/uL (4.8-10.8)
[2020-03-14 06:32] LABS: BUN Creatinine Ratio 16.2 (10-20); Calcium 8.2 mg/dl (8.5-10.1); Creatinine Clr Calc Pharmacy 156.9 ml/min; Est GFR (African American) 129.3; Est GFR (Non-African American) 111.6; Magnesium 1.9 mg/dl (1.8-2.4); Phosphorus 1.8 mg/dl (2.5-4.9); Potassium 3.9 mmol/L (3.5-5.1)
[2020-03-14] MEDS: NSS + 20MEQ KCL 20 MEQ/1,000 ML BAG IV SCH (07:57)
[2020-03-14] MEDS: PANTOprazole 40 MG in SYRINGE 0 ML IV SCH (07:58)
[2020-03-14] MEDS: FAMOTIDINE 20 MG in SYRINGE 3 ML IV SCH (07:58)
[2020-03-14] MEDS: LORazepam 0.5 MG TAB PO PRN ×2 (07:59→22:12)
[2020-03-14] MEDS: HEPARIN SOD 5,000 UNIT/0.5 ML VIAL SQ SCH ×2 (07:59→20:37)
[2020-03-14] MEDS: GABAPENTIN 300 MG CAP PO SCH ×3 (08:45→20:37)
[2020-03-14] MEDS: PROMETHAZINE HCL 12.5 MG in SODIUM CHLORIDE 0.9% 50 ML IV PRN (08:48)
[2020-03-14] MEDS: GABAPENTIN 100 MG CAP PO SCH ×3 (08:48→20:37)
--- NOTE | 2020-03-14 09:57 | Neurology Progress Note ---
Date of Service March 14, 2020 Assessment & Plan (1) Trigeminal neuralgia of left side of face: (2) Hyponatremia: (3) Anxiety disorder: Patient has a longstanding (since 2005) history of intermittent significant left facial pain, consistent with V3 (and V2) trigeminal neuralgia. She has been refractory to some medications and side effects to others. More recently she has had a progressive course with more pain and as of February 24 she was increased to her current Carbatrol ER and gabapentin doses. She was still experiencing pain on admission but since changes in dosage were made March 09 she is improved, and currently, has no facial pain. She has chronic hyponatremia from carbamazepine. It is typically been between 124 and 127, which does not give her any issues, as far as I am aware. Patient will get nervous if it falls below 124, but she has tolerated the low 120s. This morning, sodium level was 135. Carbamazepine level earlier in the week was mid-normal at 7.8. She has a history of anxiety somewhat controlled with lorazepam. This is mostly a function of how much facial pain she is having. She is depressed this morning because of her abdominal issues. Currently, she is 3day postop for perforated diverticulitis, post laparotomy with colonic resection/colostomy and abdominal washout by Dr. Luciano. She has some abdominal pain nausea and vomiting. Recommendations: 1. Continue Carbatrol ER (her own home medication) 200 milligrams 3 times a day. 2. Continue gabapentin 800 milligrams 3 times daily for now. 3. Since medications seem to have failed overall, as an outpatient, I am going to refer her to [facility] (or [facility]) for consideration of surgical procedures or gamma knife for trigeminal neuralgia treatment. 4. I have no further neurologic recommendations to make at this time. She can follow up with me as an outpatient to 3 weeks after discharge. Overall, I spent a total of 25 minutes with this case including review of records, direct evaluation the patient at bedside, and discussion of the case with the patient at bedside, and RN at bedside, and Dr. Montano, including differential diagnosis and treatment options. Admission and Anticipated Discharge Date Admission Date: March 09, 2020 Anticipated date of discharge: 03/16/20 Subjective Patient stopped fentanyl a day or 2 ago. She was not getting much in the way of face pain although this morning she had a twinge of pain in her left cheek and jaw. She asked for gabapentin and apparently this was the 1st time she has had gabapentin postop. She admits to being anxious and somewhat depressed over her current medical situation and what's going to happen to her in the future. She lives alone at home and she is somewhat scared of this. She is having significant abdominal issues including pain, nausea, and vomiting. CBC is stable and sodium was 135. Calcium and phosphorus numbers are little better today than previous. Blood pressure is 140/80. Results & Data ([facility]) Vital Signs (Past 12 Hours) Vital Signs Temp Pulse Resp BP Pulse Ox 03/14/20 07:35 36.1 C L 89 18 140/85 97 03/13/20 23:59 36.5 C 94 H 18 139/84 96 Exam (Neuro) Physical Exam: She is awake and alert. Speech is without aphasia or dysarthria. Mood is down but affect is appropriate. She is not agitated or overly anxious this morning. Thought processes are intact with good long and short-term memory. Extraocular eye muscles are intact without nystagmus. There is no facial droop. Tongue is midline. Coordination is normal in the arms. Strength is symmetrical in the limbs. PG Care Time/CCT Total # of Minutes Spent Total Time Spent with Patient: Total time spent is greater than 50% in coordination of care (as documented) at patient's floor/unit and/or counseling patient: Coding Level of Care Code 77576 Subseq Hosp Care Lvl 2 Diagnoses Trigeminal neuralgia of left side of face G50.0 Hyponatremia E87.1 Anxiety disorder F41.9 Time Spent (min) 25
--- NOTE | 2020-03-14 10:05 | Surgery Progress Note ---
Date of Service March 14, 2020 Assessment & Plan (1) Diverticulitis large intestine: increase activity IVF OK con't sips and chips slow progress Subjective POD# 3 Payne's some stool in bag not hungry ambulating OK Review of Systems Constitutional: no fever and no chills Respiratory: no dyspnea Cardiovascular: no chest pain Gastrointestinal: + abdominal pain; no nausea and no vomiting Genitourinary: no dysuria Physical Exam Constitutional: well developed and well nourished; no acute distress Neck: trachea midline Respiratory: normal respiratory effort, lungs clear to auscultation Cardiovascular: RRR, no murmur, no edema Gastrointestinal (Abdomen): Inspection/Auscultation: abdomen normal to inspection and normal bowel sounds; abdomen not distended Percussion/Palpation: + abdomen tender Musculoskeletal: Head/Neck/Chest: normocephalic and head atraumatic Results & Data Vital Signs (Past 12 Hours) Vital Signs Temp Pulse Resp BP Pulse Ox 03/14/20 07:35 36.1 C L 89 18 140/85 97 03/13/20 23:59 36.5 C 94 H 18 139/84 96 (1) Diverticulitis large intestine Diverticulitis bleeding: with bleeding Diverticulitis complication: without perforation or abscess Qualified Code(s): K57.33 - Diverticulitis of large intestine without perforation or abscess with bleeding
[2020-03-14] MEDS ORDERED: SODIUM PHOSPHATE 3 MMOL/1 ML INFUSION IV STA (10:31)
[2020-03-14] MEDS ORDERED: SODIUM PHOSPHATE 21 MMOL in SODIUM CHLORIDE 0.9% 500 ML IV ONE (11:00)
--- NOTE | 2020-03-14 12:41 | Hospitalist Progress Note ---
Date of Service March 14, 2020 Assessment & Plan (1) Diverticulitis of colon with perforation: Patient is a 69-year-old female with a past medical history of Chronic hyponatremia, trigeminal neuralgia, anxiety disorder, IBS, history of breast cancer who presents for evaluation of abdominal pain and found to have diverticulitis with microperf and developing phlegmon. CT abd/pel with po con on admission with: 1. "Considerable progression of findings of acute diverticulitis involving the d escending as well as proximal to mid sigmoid colon. 2. Considerable progression of the pericolonic infiltrative change as well as wall thickening of these regions. 3. Extraluminal small air pockets medial and posterior to the colon consistent with walled off perforations. 4. Probable developing phlegmon formation given this appearance. 5. No evidence for true fluid abscess process at this time. 6. No evidence for nonobstructive bowel pattern." Was slightly improved but then acutely worsened overnight on 03/10 with pain and fever--> was taken to the OR --> found to have perforated colon with feculent peritonitis--> had sigmoid colectomy and end colostomy performed by Dr. Luciano on 03/11 WBC count trended back to normal but then slightly up today at 11k, however remains afebrile, hgb post op stable at 11.7 Had some nausea from fentanyl in epidural which is now removed --> nausea now improved, has some output in colostomy -post-op management as per Surgery -with drain in place continue clears today -OOB to chair and ambulate now continue IV Zosyn for peritonitis -will now dc IVFs as is taking clears and is a bit volume overloaded with mild edema -replace lytes as needed -IS q1 hour while awake -Zofran and phenergan PRN for nausea -IV toradol 15mg q4h prn pain -follow CBC, CMP, Mag Phos (2) Sepsis: POA, resolved (3) Chronic hyponatremia: Patient with a history of chronic hyponatremia being followed by Dr. Harper for that and trigeminal neuralgia. Secondary to Carbatrol and perhaps slightly worse than baseline here due to dehydration from fevers and poor po intake Na+ up and stable at 135 today from 125 on admission after being on NS IVFs -Trend BMP -Monitor for neurological abnormalities (4) Anxiety disorder: Patient with a history of anxiety, exacerbated here by acute illness and has not received her usual ativan po x 2 days while had epidural as per anesthesia protocol Improved today -continue Lorazepam 4 times daily on a scheduled basis as she does at home -recommend starting SSRI as an outpatient and watching sodium levels-defer to PC P (5) Trigeminal neuralgia: Patient endorsing recent exacerbation of her facial pain on admission--> seen routinely by Neuro Requested Neuro consult here by patient--> increased gabapentin to 800mg tid-can restart today now that epidural out Pain is now much improved in the face, but she is also not chewing any food which usually exacerbates her pain -checked carbamazipine level-7.8 and acceptable to Neuro -Continue home Carbatrol 200mg po tid -has tried multiple other medications all with various side effects -may need referral to [facility]knife tx in future as per Neuro (6) Diarrhea: started after admission, thought to be worsened by po contrast from her CT scan C. diff checked and is negative -continue IVF hydration -now s/p sigmoid colectomy, diarrhea resolved (7) Hypokalemia: replaced and normal now follow level in AM (8) Hypophosphatemia: Low again today at 1.8 but improved, secondary to poor po intake -replace with IV K-Phos today follow BMP, Phos in AM (9) Heartburn: Now resolved after receiving Pepcid 20mg IV bid and Protonix -pt requests they be discontinued-will stop and observe ileus is improved so hopefully should not be a problem (10) DVT prophylaxis: SCDs Heparin SQ Dispo-continued stay OOB to chair and ambulate Admission and Anticipated Discharge Date Admission Date: March 09, 2020 Anticipated date of discharge: 03/17/20 Subjective Pt is not sure how she feels today but is OOB to chair and about to eat her clear liquids lunch. SHe is still a bit anxious and intermittently confused but overall improved. Pain is controlled. When I asked if she has any nausea, she says "well, I don't know yet." Denies CP or SOB. No futher heartburn and does not want to take the antacids anymore. I discussed her care with Neurology She has only an occasional twinge of pain in her left jaw. Review of Systems Review of Systems: All systems reviewed & are unremarkable except as noted in HPI & below Physical Exam Constitutional: WD/WN, vitals as above Eyes: + anicteric sclerae ENMT: external ear and nose normal, oropharynx normal Ears: no hearing impairment Mouth: oral mucous membranes not dry Neck: trachea midline, no thyromegaly Respiratory: normal respiratory effort, lungs clear to auscultation Cardiovascular: RRR, no murmur, no edema Chest (Breasts): Chest: normal inspection of chest Gastrointestinal (Abdomen): Inspection/Auscultation: normal bowel sounds; + abdomen abnormal to inspection (large dressing c/d/i, colostomy LLQ with small amount green drainage) and abdomen not distended Percussion/Palpation: + abdomen tender (mild over incision) and abdomen soft; no guarding and abdomen not rigid Musculoskeletal: Extremities: extremities normal to inspection; no cyanosis and no clubbing Skin: no rashes, warm and dry Neurologic: moves all extremities and awake; no focal motor deficits Motor/Sensory: no tremor Psychiatric: Orientation: alert, oriented x 3 and cooperative Affect: + anxious affect Lymphatic: no lymphedema Results & Data Results & Data ([facility]) Vital Signs (Past 12 Hours) Vital Signs Temp Pulse Resp BP Pulse Ox 03/14/20 07:35 36.1 C L 89 18 140/85 97 Laboratory Results 03/14/20 03/14/20 Range/Units 05:17 05:17 WBC 11.28 H (4.8-10.8) K/uL RBC 3.72 L (4.2-5.4) M/uL Hgb 11.7 L (12.0-16.0) g/dL Hct 34.1 L (37-47) % MCV 91.7 (80-100) fL MCH 31.5 (25-34) pg MCHC 34.3 (32-36) g/dL RDW Std Deviation 45.9 (36.4-46.3) fL RDW Coeff of [place] 13.6 (11.5-14.5) % Plt Count 387 (130-400) K/uL MPV 8.7 (7.4-10.4) fL Immature Gran % (Auto) 0.8 % Neut % (Auto) 90.9 % Lymph % (Auto) 3.1 % [place] % (Auto) 5.1 % Eos % (Auto) 0.0 % Baso % (Auto) 0.1 % Immature Gran # (Auto) 0.09 H (0.00-0.02) K/uL Neut # (Auto) 10.26 H (1.4-6.5) K/uL Lymph # (Auto) 0.35 L (1.2-3.4) K/uL [place] # (Auto) 0.57 (0.11-0.59) K/uL Eos # (Auto) 0.00 (0-0.5) K/uL Baso # (Auto) 0.01 (0-0.2) K/uL Sodium 135 L (136-145) mmol/L Potassium 3.9 (3.5-5.1) mmol/L Chloride 106 (98-107) mmol/L Carbon Dioxide 19 L (21-32) mmol/L Anion Gap 10.0 (3-11) BUN 6 L (7-18) mg/dl Creatinine 0.36 L (0.6-1.2) mg/dl Est Cr Clr Drug Dosing 156.9 ml/min Est GFR ( Amer) 129.3 Est GFR (Non-Af Amer) 111.6 BUN/Creatinine Ratio 16.2 (10-20) Glucose 120 H (70-99) mg/dl Calcium 8.2 L (8.5-10.1) mg/dl Phosphorus 1.8 L (2.5-4.9) mg/dl Magnesium 1.9 (1.8-2.4) mg/dl PG Care Time/CCT Total # of Minutes Spent Total Time Spent with Patient: Total time spent is greater than 50% in coordination of care (as documented) at patient's floor/unit and/or counseling patient: Coding Level of Care Code 83783 Subseq Hosp Care Lvl 2 Diagnoses Diverticulitis of colon with perforation K57.20 Diverticulitis bleeding: without bleeding Sepsis A41.9 Chronic hyponatremia E87.1 Anxiety disorder F41.9 Trigeminal neuralgia G50.0 Diarrhea R19.7 Hypokalemia E87.6 Hypophosphatemia E83.39 Heartburn R12 DVT prophylaxis Z29.9 (1) Diverticulitis of colon with perforation Diverticulitis bleeding: without bleeding Qualified Code(s): K57.20 - Diverticulitis of large intestine with perforation and abscess without bleeding
[2020-03-14] MEDS: KETOROLAC TROMETHAMINE 15 MG/ML VIAL IV PRN (16:09)
[2020-03-15] MEDS: KETOROLAC TROMETHAMINE 15 MG/ML VIAL IV PRN ×3 (02:19→21:20)
[2020-03-15] MEDS: PIPERACILLIN/TAZOBACTAM 3.375 GM in DEXTROSE 5% 100 ML IV SCH ×3 (06:03→21:11)
--- NOTE | 2020-03-15 06:39 | Surgery Progress Note ---
Date of Service March 15, 2020 Assessment & Plan (1) Diverticulitis of colon with perforation: Patient seems to be doing a little better over the last 48 hours no emesis He does have a mild amount of GI activity We will try to advance her diet, she may prefer pured meats We will ask the dietitian to see the patient Continue IV antibiotics Patient should try to walk in the hallway Results & Data Vital Signs (Past 12 Hours) Vital Signs Temp Pulse Resp BP Pulse Ox 03/14/20 23:05 36.9 C 80 16 133/84 96 PG Care Time/CCT Total # of Minutes Spent Total Time Spent with Patient: Total time spent is greater than 50% in coordination of care (as documented) at patient's floor/unit and/or counseling patient: Coding Level of Care Code None Diagnoses Diverticulitis of colon with perforation K57.20 Diverticulitis bleeding: without bleeding (1) Diverticulitis of colon with perforation Diverticulitis bleeding: without bleeding Qualified Code(s): K57.20 - Diverticulitis of large intestine with perforation and abscess without bleeding
[2020-03-15] MEDS: CARBATROL PO SCH ×3 (06:40→16:27)
[2020-03-15] MEDS: GABAPENTIN 100 MG CAP PO SCH ×3 (06:42→16:28)
[2020-03-15] MEDS: LORazepam 0.5 MG TAB PO PRN ×3 (06:43→23:54)
[2020-03-15] MEDS: GABAPENTIN 300 MG CAP PO SCH ×3 (06:43→16:29)
[2020-03-15 06:48] LABS: Basophils # (auto) 0.02 K/uL (0-0.2); Basophils % (auto) 0.3 %; Eosinophils # (auto) 0.56 K/uL (0-0.5); Eosinophils % (auto) 7.4 %; Hematocrit (blood only) 34.1 % (37-47); Hemoglobin 11.5 g/dL (12.0-16.0); Immature Granulocytes # (auto) 0.11 K/uL (0.00-0.02); Immature Granulocytes % (auto) 1.4 %; Lymphocytes # (auto) 0.87 K/uL (1.2-3.4); Lymphocytes % (auto) 11.4 %; Mean Corpuscular Hemoglobin 31.1 pg (25-34); Mean Corpuscular Hgb Conc 33.7 g/dL (32-36); Mean Corpuscular Volume 92.2 fL (80-100); Mean Platelet Volume 8.2 fL (7.4-10.4); Monocytes % (auto) 7.9 %; Neutrophils # (auto) 5.45 K/uL (1.4-6.5); Neutrophils % (auto) 71.6 %; Platelet Count 409 K/uL (130-400); RDW Coefficient of Variation 13.8 % (11.5-14.5); White Blood Count 7.61 K/uL (4.8-10.8)
[2020-03-15 07:20] LABS: BUN Creatinine Ratio 17.6 (10-20); Calcium 7.8 mg/dl (8.5-10.1); Est GFR (African American) 116.1; Est GFR (Non-African American) 100.2; Magnesium 1.9 mg/dl (1.8-2.4); Phosphorus 2.1 mg/dl (2.5-4.9); Potassium 3.6 mmol/L (3.5-5.1)
[2020-03-15] MEDS: HEPARIN SOD 5,000 UNIT/0.5 ML VIAL SQ SCH ×2 (08:11→21:15)
--- NOTE | 2020-03-15 19:31 | Hospitalist Progress Note ---
Date of Service March 15, 2020 Assessment & Plan (1) Diverticulitis of colon with perforation: Patient is a 69-year-old female with a past medical history of Chronic hyponatremia, trigeminal neuralgia, anxiety disorder, IBS, history of breast cancer who presents for evaluation of abdominal pain and found to have diverticulitis with microperf and developing phlegmon. perforated diverticulitis w sepsis/peritonitis - now POD4 s/p Laparotomy, Sigmoid Colon Resection with End Colostomy -appearing to improve nicely, tolerating advanced diet -continue zosyn -ongoing supportive care, pain under good control (2) Sepsis: POA, resolved post op and IV abx (3) Chronic hyponatremia: Patient with a history of chronic hyponatremia being followed by Dr. Harper for that and trigeminal neuralgia. Secondary to Carbatrol currently 138 (4) Anxiety disorder: doing well with reassurance, detailed explanations, home med regimen, and supportive care (5) Trigeminal neuralgia: continue current regimen - doing OK (6) Diarrhea: Cdiff negative, follow clinically (7) Hypokalemia: replaced (8) Hypophosphatemia: should improve w better PO intake (9) Heartburn: mild indigestion after eating solids - self-resolved (10) DVT prophylaxis: SCDs Heparin SQ ongoing med/surg care, showing improvement, anticipate home at discharge Admission and Anticipated Discharge Date Admission Date: March 09, 2020 Subjective overall feeling better. belly pain better, ate some solid foods at lunch and just had a little indigestion after - no nausea/vomiting no significant pain. worried about learning to use ostomy. throat still somewhat sore. no f/c/s. vitals noted nad heent nc at mmm breathing unlabored no accessory muscles good effort skin no rashes no pallor or icterus neuro no focal deficits. abd soft mild distention midline incision dressed, appearing overall c/d/i no erythema tracking outside of dressing. diffuse mild tenderness but no guarding no rebound no rigidity. Review of Systems Review of Systems: All systems reviewed & are unremarkable except as noted in HPI & below Physical Exam Physical Exam: vitals noted nad heent nc at mmm breathing unlabored no accessory muscles good effort skin no rashes no pallor or icterus neuro no focal deficits. abd soft mild distention midline incision dressed, appearing overall c/d/i no erythema tracking outside of dressing. diffuse mild tenderness but no guarding no rebound no rigidity. Results & Data Results & Data ([facility]) Vital Signs (Past 12 Hours) Vital Signs Temp Pulse Resp BP Pulse Ox 03/15/20 14:59 98.6 F 84 18 130/80 96 PG Care Time/CCT Total # of Minutes Spent Total Time Spent with Patient: Total time spent is greater than 50% in coordination of care (as documented) at patient's floor/unit and/or counseling patient: Coding Level of Care Code 50440 Subseq Hosp Care Lvl 3 Diagnoses Diverticulitis of colon with perforation K57.20 Diverticulitis bleeding: without bleeding Sepsis A41.9 Chronic hyponatremia E87.1 Anxiety disorder F41.9 Trigeminal neuralgia G50.0 Diarrhea R19.7 Hypokalemia E87.6 Hypophosphatemia E83.39 Heartburn R12 DVT prophylaxis Z29.9 (1) Diverticulitis of colon with perforation Diverticulitis bleeding: without bleeding Qualified Code(s): K57.20 - Diverticulitis of large intestine with perforation and abscess without bleeding
[2020-03-16] MEDS: PIPERACILLIN/TAZOBACTAM 3.375 GM in DEXTROSE 5% 100 ML IV SCH ×3 (05:51→21:23)
[2020-03-16] MEDS ORDERED: HYDROCODONE/ACETAMOPHEN 5/325MG TAB PO PRN ×2 (06:05)
[2020-03-16] MEDS ORDERED: ACETAMINOPHEN 325 MG TAB PO PRN (06:05)
[2020-03-16] MEDS: CARBATROL PO SCH ×3 (06:10→16:43)
[2020-03-16] MEDS: GABAPENTIN 100 MG CAP PO SCH ×3 (06:11→16:44)
[2020-03-16] MEDS: LORazepam 0.5 MG TAB PO PRN ×3 (06:30→16:45)
[2020-03-16] MEDS: GABAPENTIN 300 MG CAP PO SCH ×3 (06:30→16:44)
--- NOTE | 2020-03-16 07:53 | Surgery Progress Note ---
Date of Service March 16, 2020 Assessment & Plan (1) Diverticulitis of colon with perforation: Patient is sitting in the chair beside the bed He still gets some crampiness and nausea Tolerating some regular food She has a Jose drain in the subcutaneous space and a GRACE drain She is currently on IV antibiotics which we will continue I think she will likely need at least 2 more days in the hospital, possibly remove her drains tomorrow We will likely go home on p.o. antibiotics for approximately 1 week Continue to ambulate in the hallway Results & Data Vital Signs (Past 12 Hours) Vital Signs Temp Pulse Pulse Resp BP Pulse Ox 03/16/20 07:07 36.7 C 85 18 117/73 96 03/15/20 23:23 36.9 C 81 16 115/70 96 PG Care Time/CCT Total # of Minutes Spent Total Time Spent with Patient: Total time spent is greater than 50% in coordination of care (as documented) at patient's floor/unit and/or counseling patient: Coding Level of Care Code None Diagnoses Diverticulitis of colon with perforation K57.20 Diverticulitis bleeding: without bleeding (1) Diverticulitis of colon with perforation Diverticulitis bleeding: without bleeding Qualified Code(s): K57.20 - Diverticulitis of large intestine with perforation and abscess without bleeding
[2020-03-16] MEDS: HEPARIN SOD 5,000 UNIT/0.5 ML VIAL SQ SCH (09:14)
--- NOTE | 2020-03-16 13:48 | Hospitalist Progress Note ---
Date of Service March 16, 2020 Assessment & Plan (1) Diverticulitis of colon with perforation: Patient is a 69-year-old female with a past medical history of Chronic hyponatremia, trigeminal neuralgia, anxiety disorder, IBS, history of breast cancer who presents for evaluation of abdominal pain and found to have diverticulitis with microperf and developing phlegmon. perforated diverticulitis w sepsis/peritonitis - now POD4 s/p Laparotomy, Sigmoid Colon Resection with End Colostomy -appearing to improve nicely, tolerating advanced diet -continue zosyn for now - likely transition to augmentin for a week after discharge -ongoing supportive care, pain and nausea control seem reasonable (2) Sepsis: POA, resolved post op and IV abx (3) Chronic hyponatremia: Patient with a history of chronic hyponatremia being followed by Dr. Harper for that and trigeminal neuralgia. Secondary to Carbatrol currently normal (4) Anxiety disorder: overall has been doing well with reassurance, detailed explanations, home med regimen, and supportive care (5) Trigeminal neuralgia: continue current regimen - doing OK (6) Diarrhea: Cdiff negative, follow clinically - no complaints of this today (7) Hypokalemia: replaced (8) Hypophosphatemia: anticipate improvement now that she has been taking better PO intake (9) Heartburn: mild indigestion after eating solids - continue current care (10) DVT prophylaxis: SCDs lovenox ongoing med/surg care, showing improvement, anticipate home at discharge (probably in about 48hrs depending on overall progress) Admission and Anticipated Discharge Date Admission Date: March 09, 2020 Subjective doing reasonably well - maybe a little more nauseated than when i saw her yesterday but overall better than before and still able to eat solids. pain reasoanble control and mostly incisional. still nervous about transition to home - discussed asking for help and how to go about that in current covid climate (having friends deliver meals to the front porch, how one could get assistance with laundry, etc) Review of Systems Review of Systems: All systems reviewed & are unremarkable except as noted in HPI & below Physical Exam Physical Exam: gen aao pleasant nad heent nc at mmm breathing unlabored no accessory muscles good effort skin no rashes no pallor or icterus neuro no focal deficits Results & Data Results & Data ([place]) Vital Signs (Past 12 Hours) Vital Signs Temp Pulse Resp BP Pulse Ox 03/16/20 07:07 98.1 F 85 18 117/73 96 PG Care Time/CCT Total # of Minutes Spent Total Time Spent with Patient: Total time spent is greater than 50% in coor dination of care (as documented) at patient's floor/unit and/or counseling patient: Coding Level of Care Code 59371 Subseq Hosp Care Lvl 3 Diagnoses Diverticulitis of colon with perforation K57.20 Diverticulitis bleeding: without bleeding Sepsis A41.9 Chronic hyponatremia E87.1 Anxiety disorder F41.9 Trigeminal neuralgia G50.0 Diarrhea R19.7 Hypokalemia E87.6 Hypophosphatemia E83.39 Heartburn R12 DVT prophylaxis Z29.9 (1) Diverticulitis of colon with perforation Diverticulitis bleeding: without bleeding Qualified Code(s): K57.20 - Diverticulitis of large intestine with perforation and abscess without bleeding
[2020-03-17 06:22] LABS: Basophils # (auto) 0.04 K/uL (0-0.2); Basophils % (auto) 0.5 %; Eosinophils # (auto) 0.22 K/uL (0-0.5); Eosinophils % (auto) 2.8 %; Hematocrit (blood only) 31.7 % (37-47); Hemoglobin 11.1 g/dL (12.0-16.0); Immature Granulocytes # (auto) 0.23 K/uL (0.00-0.02); Lymphocytes # (auto) 0.73 K/uL (1.2-3.4); Lymphocytes % (auto) 9.4 %; Mean Corpuscular Hemoglobin 31.9 pg (25-34); Mean Corpuscular Volume 91.1 fL (80-100); Mean Platelet Volume 8.4 fL (7.4-10.4); Monocytes # (auto) 0.51 K/uL (0.11-0.59); Monocytes % (auto) 6.6 %; Neutrophils # (auto) 6.04 K/uL (1.4-6.5); Neutrophils % (auto) 77.7 %; Platelet Count 382 K/uL (130-400); RDW Coefficient of Variation 13.7 % (11.5-14.5); RDW Standard Deviation 45.3 fL (36.4-46.3); Red Blood Count 3.48 M/uL (4.2-5.4); White Blood Count 7.77 K/uL (4.8-10.8)
[2020-03-17] MEDS: CARBATROL PO SCH ×2 (06:41→11:28)
[2020-03-17] MEDS: GABAPENTIN 300 MG CAP PO SCH ×2 (06:42→11:30)
[2020-03-17] MEDS: GABAPENTIN 100 MG CAP PO SCH ×2 (06:43→11:29)
[2020-03-17] MEDS: PIPERACILLIN/TAZOBACTAM 3.375 GM in DEXTROSE 5% 100 ML IV SCH (06:44)
[2020-03-17] MEDS: LORazepam 0.5 MG TAB PO PRN ×2 (06:47→12:40)
[2020-03-17 06:51] LABS: BUN Creatinine Ratio 9.5 (10-20); Calcium 7.6 mg/dl (8.5-10.1); Creatinine Clr Calc Pharmacy 131.4 ml/min; Est GFR (Non-African American) 105.2; Potassium 3.2 mmol/L (3.5-5.1)
--- NOTE | 2020-03-17 07:57 | Surgery Progress Note ---
Date of Service March 17, 2020 Assessment & Plan (1) Diverticulitis of colon with perforation: Patient is doing well and she wishes to go home Her drainage is minimal and will have her drains removed Placed gauze walker in 2 ends of the incision and continue this at home Continue IV antibiotics until she leaves likely this afternoon if okay with medicine Instructions and prescription for Augmentin in the EMR, visiting nurse has been ordered She does not want any pain medication We will see her in the office next week Results & Data Vital Signs (Past 12 Hours) Vital Signs Temp Pulse Resp BP Pulse Ox 03/16/20 23:14 36.8 C 90 16 130/75 90 PG Care Time/CCT Total # of Minutes Spent Total Time Spent with Patient: Total time spent is greater than 50% in coordination of care (as documented) at patient's floor/unit and/or counseling patient: Coding Level of Care Code None Diagnoses Diverticulitis of colon with perforation K57.20 Diverticulitis bleeding: without bleeding (1) Diverticulitis of colon with perforation Diverticulitis bleeding: without bleeding Qualified Code(s): K57.20 - Diverticulitis of large intestine with perforation and abscess without bleeding
[2020-03-17] MEDS ORDERED: ENOXAPARIN INJ 40 MG/0.4 ML SYR SQ SCH (09:00)
--- NOTE | 2020-03-17 09:39 | Discharge Summary ---
Date of Service March 17, 2020 Admission HPI Per Admitting Provider Patient is a 69-year-old female with a past medical history of Chronic hyponatremia, diverticulitis, biliary colic, hemorrhoids, trigeminal neuralgia, IBS, history of breast cancer who presents for evaluation of abdominal pain. Patient's abdominal pain began yesterday, she presented to the emergency department at that time where she was diagnosed with diverticulitis and discharged on Augmentin. She did well immediately following discharge but subsequently deteriorated with increasing lower abdominal pain. This caused a re-present today. She was evaluated in the emergency room this afternoon and repeat CT scan demonstrated progression of findings of acute diverticulitis including the descending as well as proximal to mid sigmoid colon, progression of pericolonic infiltrative change as well as wall thickening of the regions, extraluminal small air pockets medial and posterior to the colon consistent with walled off perforations, probable developing phlegmon formation given the appearance. Her laboratory findings are consistent with infection, white count 15 neutrophil predominance, hemoglobin 11.9, platelets 231, sodium 124, this is her usual range, chloride 92, glucose 120, AST and ALT within normal limits, bilirubin slightly elevated 1.2, urine did not indicate urinary tract infection. Based upon this patient's clinical history and physical exam findings general surgery was consulted as well as hospitalist team for admission. Patient will be admitted to the hospital for medical management of diverticulitis. Primary Care Provider: Padmini Hewitt, DO Admission Exam Per Admitting Provider General: Middle-aged female appearing her stated age, lying in bed endorsing abdominal pain HEENT: Normocephalic atraumatic Neck: Normal to visual inspection, trachea midline, negative JVD Cardiac: Regular rate and rhythm, normal S1, normal S2, I did not appreciate significant murmurs rubs or gallops, negative calf tenderness, negative pedal edema Respiratory: Clear to auscultation bilaterally without significant wheezes, rales, rhonchi GI: Bowel sounds present, normal, tender to palpation in the lower quadrants, nondistended, no rebound, no guarding MSK: Moves all extremities Skin: No rashes visible Neuro: Alert and oriented x4 Psych: Normal affect, cooperative Principal Diagnosis perforated diverticulitis with peritonitis Discharge Exam Constitutional WD/WN, vitals as above Eyes PERRL, conjunctivae normal, anicteric sclerae ENMT Ears: no hearing impairment and no external ear abnormality Nose: no external nose abnormality Neck trachea midline, no thyromegaly Respiratory normal respiratory effort; no respiratory distress and no labored breathing Gastrointestinal (Abdomen) normal bowel sounds, soft, nontender, no hepatosplenomegaly Musculoskeletal no cyanosis or clubbing, extremities motor strength 5/5 Skin no rashes, warm and dry Psychiatric A+Ox3, euthymic affect Discharge Data Allergies Allergy/AdvReac Type Severity Reaction Status Date / Time meperidine Allergy Severe STOPPED Verified 03/11/20 10:00 BREATHING Iodinated Contrast Media Allergy Mild HIVES Verified 03/11/20 10:00 amitriptyline AdvReac Intermediate FEET Verified 03/11/20 10:00 NEUROPATHY, "ILL FEELING" codeine AdvReac Intermediate VOMITING Verified 03/11/20 10:00 dicyclomine AdvReac Intermediate CRAMPS, Verified 03/11/20 10:00 NAUSEA diphenhydramine AdvReac Intermediate HEART Verified 03/11/20 10:00 RACING erythromycin base AdvReac Intermediate N&V Verified 03/11/20 10:00 fentanyl AdvReac Intermediate DIZZINESS, Verified 03/11/20 10:00 NAUSEA omeprazole AdvReac Intermediate VOMITING Verified 03/11/20 10:00 pregabalin [From Lyrica] AdvReac Intermediate NAUSEA, Verified 03/11/20 10:00 "STRANGE SENSATION ALL OVER" procaine AdvReac Intermediate HEART Verified 03/11/20 10:00 RACING Sulfa (Sulfonamide AdvReac Intermediate N&V Verified 03/11/20 10:00 Antibiotics) baclofen AdvReac Mild VOMITING, Verified 03/11/20 10:00 "FELT WEIRD" epinephrine AdvReac Unknown HEART Verified 03/11/20 10:00 RACING ANTIHISTAMINES AdvReac Intermediate HEART Uncoded 03/11/20 10:00 RACING NARCOTICS AdvReac Intermediate "CAN'T Uncoded 03/11/20 10:00 TOLERATE" MUSCLERELAXANTS AdvReac Mild VOMITING Uncoded 03/11/20 10:00 Consultations 03/08/20 23:28 Consult General Surgery Stat ED Decision to Admit Stat 03/09/20 09:28 Consult Neurology Routine 03/12/20 06:11 Consult Case Management - Discharge Planning Routine Procedures Performed Operation Date: 03/11/20 08:30 Actual Procedures p Laparotomy, Sigmoid Colon Resection with End Colostomy(Not Applicable) - Eliecer Luciano MD, FACS Ordered Studies 03/08/20 20:16 CT abd pelvis oral con only Stat Hospital Course (1) Diverticulitis of colon with perforation: Patient is a 69-year-old female with a past medical history of Chronic hyponatremia, trigeminal neuralgia, anxiety disorder, IBS, history of breast cancer who presents for evaluation of abdominal pain and found to have diverticulitis with microperf and developing phlegmon. perforated diverticulitis w sepsis/peritonitis - Post op s/p Laparotomy, Sigmoid Colon Resection with End Colostomy Doing well at discharge, no fever, no white count Completed 6 days of Zosyn, continue 10 days of Augmentin at discharge Follow-up with general surgery for staple removal, drain removal Hypokalemia, hyponatremia, hypophosphatemia Follow-up with PCP, recheck electrolytes, CBC Chronic hyponatremia: Patient with a history of chronic hyponatremia being followed by Dr. Harper for that and trigeminal neuralgia. Secondary to Carbatrol currently normal Trigeminal neuralgia: Was seen by Dr. Harper her neurologist in the hospital. No medication changes were made at this time for her trigeminal neuralgia, but he does said the following "since medications seem to have failed overall, as an outpatient, I am going to refer her to [facility] (or [facility]) for consideration of surgical procedures or gamma knife for trigeminal neuralgia treatment." (2) Peritonitis: (3) Hypophosphatemia: (4) Hypokalemia: (5) Diverticulitis large intestine: (6) Anxiety disorder: (7) Trigeminal neuralgia: Total Time Total Time Spent Total Time Spent (In Minutes): Greater than 30 minutes Total Time Includes: Examination of the Patient, Discharge Planning, Medication Reconciliation and Communication With Other Providers Discharge Plan Discharge Items Patient Disposition: Home - Home Health Services Reason For Visit: DIVERTICULITIS Discharge Diagnosis: perforated diverticulitis with peritonitis Activity: As commented below Activity Comment: light activity for 4 weeks Lifting: No more than 10 pounds Bathing Comment: may shower Exercise Comment: wait 4 weeks Driving/Machine Use: 1 week Non-emergency contact: Primary Care Provider and Surgeon Call non-emergency contact if: your pain is not controlled, your temperature is above 101 and your wound has increased drainage Follow-up/Referrals: Padmini Hewitt DO [Primary Care Provider] - Diet: Regular Addtl Attending Provider Instructions: SPECIAL CARE INSTRUCTIONS: * Cover incisions and change daily for comfort/drainage. May leave uncovered if dry * lightly pack 1/4 in ribbon gauze into ends of incision and change daily * May use ibuprofen for pain as tolerated. * Expect some swelling and bruising. Call your doctor if: * Temperature above 101 degrees * Pain not relieved by pain medicine ordered * There is increased drainage or redness from any incision * You have any unanswered questions or concerns [phone]. FOLLOW UP VISIT: If not already scheduled, please call the office for a follow-up visit. OFFICE PHONE NUMBER: Dr. Luciano Office for next week- staple removal Pending Studies at Discharge: No Stand-Alone Forms: My [employer], Smoking Cessation Medications and DC Order Prescriptions: New amoxicillin-pot clavulanate [Augmentin] 875-125 mg tablet 1 tab PO BID Qty: 14 RF: 0 ondansetron HCl [Zofran] 4 mg tablet 4 mg PO Q6H PRN (Reason: nausea and vomiting) 4 Days Qty: 30 RF: 0 Continued carbamazepine [Carbatrol] 200 mg capsule, ER multiphase 12 hr 200 mg PO TID 30 Days Qty: 90 RF: 5 gabapentin 300 mg capsule 600 mg PO TID Qty: 180 RF: 3 ondansetron 8 mg tablet,disintegrating 8 mg PO DIRECTED PRN (Reason: Nausea) RF: 0 lorazepam 0.5 mg tablet 0.5 mg PO QID PRN (Reason: Anxiety) RF: 0 polyethylene glycol 3350 [Miralax] 17 gram/dose Powder 17 g PO DAILY PRN (Reason: Constipation) RF: 0 naproxen 375 mg Tablet,Delayed Release (Dr/Ec) 375 mg PO BID PRN (Reason: Pain) RF: 0 amoxicillin-pot clavulanate [Augmentin] 875-125 mg tablet 1 tab PO BID Qty: 10 RF: 0 Discharge Orders: Discharge Order (Routine); Ordered 03/17/20 Ordered By: Eliecer Kaba/Other Patient Handouts: DVT Post Op Prevention, Diverticulosis Diverticulitis, Discharge Instructions for Colostomy, Discharge Instructions for Diverticulitis, Discharge Instructions Changing Your Ostomy Pouch, Colostomy Nutritional Manage, Colostomy Dc Ch Admission Data Admit Date/Time: 03/09/20 00:11 Attending Provider: Jose Ramon Lujan Admit Provider: Amparo Broussard Primary Care Provider: Padmini Hewitt Other Providers: Eliecer Luciano ; Amparo Broussard ; Lexa Harper ; Noam Corley ; [facility] Other Interventions: Discharge Summary Assessment (RN) Last Done: 03/17/20 09:36 Supervising Physician Co-Signing Physician Notes I supervised Dr. Paul Patterson MD on this patient's care. I examined the patient today with the resident. I discussed the plan of care with the plan being as written in the note except for any following changes/exceptions: None. Feel well today. Eating well. No pain. Anxious to go home. Evaluated by surgery who are happy with her progress. Will go home with the colostomy and a drain in place. Will follow up with Dr. Luciano in the office next week for staple and drain removal. Resident Activity Tracking Resident Involvement: Resident Care Provided Care Provided: Adult [facility]
--- NOTE | 2020-03-17 12:36 | Billing Data ---
Date of Service March 17, 2020 Coding Level of Care Code D/C Day Management >30 mins
[2020-03-17] MEDS: KETOROLAC TROMETHAMINE 15 MG/ML VIAL IV PRN (12:43)
[2020-03-17] MEDS: ONDANSETRON INJ 2 MG/ML 2 ML VIAL IV PRN (12:49)
== END 2020-03-17 14:16 | disposition home health service (06) | DRG 329 ==
LOC: ED 17:36 → 3E 03-09 00:11 → SUATTDRO 03-09 00:11 → 3E 03-09 01:25

== ENCOUNTER 2020-04-03 08:23 | Inpatient (IN) ==
[2020-04-03] MEDS ORDERED: SODIUM CHLORIDE 0.9% 1000ML 1,000 ML IV ONE ×2 (08:37→09:57)
--- NOTE | 2020-04-03 08:56 | XRay Report ---
XR chest 1V portable CLINICAL HISTORY: SEPSIS COMPARISON STUDY: 12/04/2019 FINDINGS: The cardiac and mediastinal contours are normal. There is no evidence of focal pulmonary co nsolidation. There is no evidence of failure. No pleural effusions are visualized.[There is minor lef t basilar atelectasis/scarring. Surgical clips project over the left breast. IMPRESSION: No active disease in the chest. ACT 112: Negative or not required by law. Electronically signed by: Kris Lima M.D. 04/03/2020 8:54 AM
--- NOTE | 2020-04-03 09:16 | Emergency Department Note ---
History of Present Illness General Chief complaint: Fever Stated complaint: FEVER, STOMACH CRAMPS HAD STOM SURG 3 AGO Time Seen by Provider: 04/03/20 08:36 Source: patient, RN notes reviewed and old records reviewed Mode of arrival: ambulatory Limitations: no limitations History of Present Illness Provider complaint: Fever Onset (ago): day(s) 1 Location: abdomen Radiation: non-radiation Severity: moderate Pain Consistency: + colicky Maximum Pain Intensity: 6 Current Pain Intensity: 0 Quality: + other (Cramping) Relieved By: + immobilization Exacerbated By: + movement Associated symptoms: + fever/chills and + nausea/vomiting; no chest pain, no diaphoresis, no headaches, no shortness of breath and no weakness Treatments prior to arrival: none This is a 69-year-old female who presents emergency department sent in by general surgery over concerns that the patient recently had an ostomy placed approximately 2 weeks ago. The patient is reporting abdominal cramping as well as fevers. She denies any other symptoms including cough shortness of breath loss of taste. The patient took ibuprofen this morning for the fever. She has no other complaints. She called her surgeon who directed her to the emergency department. Home Medications Home Medications Medication Instructions Recorded Confirmed Type ondansetron 8 mg PO DIRECTED PRN 08/30/18 04/03/20 History lorazepam 0.5 mg tablet 0.5 mg PO QID PRN 07/04/19 04/03/20 History Carbatrol 200 mg capsule, extended 200 mg PO TID 30 Days #90 cap NS 02/25/20 04/03/20 Rx release gabapentin 300 mg capsule 600 mg PO TID #180 cap 02/25/20 04/03/20 Rx Allergies Allergy/AdvReac Type Severity Reaction Status Date / Time meperidine Allergy Severe STOPPED Verified 04/03/20 10:12 BREATHING Iodinated Contrast Media Allergy Mild HIVES Verified 04/03/20 10:12 amitriptyline AdvReac Intermediate FEET Verified 04/03/20 10:12 NEUROPATHY, "ILL FEELING" codeine AdvReac Intermediate VOMITING Verified 04/03/20 10:12 dicyclomine AdvReac Intermediate CRAMPS, Verified 04/03/20 10:12 NAUSEA diphenhydramine AdvReac Intermediate HEART Verified 04/03/20 10:12 RACING erythromycin base AdvReac Intermediate N&V Verified 04/03/20 10:12 fentanyl AdvReac Intermediate DIZZINESS, Verified 04/03/20 10:12 NAUSEA omeprazole AdvReac Intermediate VOMITING Verified 04/03/20 10:12 pregabalin [From Lyrica] AdvReac Intermediate NAUSEA, Verified 04/03/20 10:12 "STRANGE SENSATION ALL OVER" procaine AdvReac Intermediate HEART Verified 04/03/20 10:12 RACING Sulfa (Sulfonamide AdvReac Intermediate N&V Verified 04/03/20 10:12 Antibiotics) baclofen AdvReac Mild VOMITING, Verified 04/03/20 10:12 "FELT WEIRD" epinephrine AdvReac Unknown HEART Verified 04/03/20 10:12 RACING ANTIHISTAMINES AdvReac Intermediate HEART Uncoded 04/03/20 10:12 RACING NARCOTICS AdvReac Intermediate "CAN'T Uncoded 04/03/20 10:12 TOLERATE" MUSCLERELAXANTS AdvReac Mild VOMITING Uncoded 04/03/20 10:12 Past Med/Surg History Medical History Acute ischemic colitis (Inactive) Anxiety Cholecystitis, chronic Cholelithiases (Inactive) Costochondritis Diverticulitis of colon with perforation (Inactive) Gross hematuria (Inactive) Hemangioma LIVER AND CUTANEOUS History of breast cancer LEFT History of Nasima-Falcon virus infection Hyponatremia CHRONIC FELT 2/2 CARBATROL IBS (irritable bowel syndrome) MVP (mitral valve prolapse) HX PER PATIENT; NO RECENT ECHO Peritonitis Sepsis Peritonitis Trigeminal neuralgia of left side of face UTI (urinary tract infection) (Inactive) Surgical History History of colonoscopy History of lumpectomy of left breast + LND S/P cholecystectomy April 2019 Family History Father , CVA in his 40s that lead to "heart problems". at 56 y/o. Stroke Mother , age 63 of ruptured aneurysm No problems noted. Social History Preferred Language: Uzbek Communication Ability: Effective Tortilla Maker Required: No Beliefs That Will Affect Care: None marital status: Single Current Living Situation: Alone current occupational status: retired Other Information That Helps Us Care for You: No Feels Safe at Home: Yes Safety Concerns: Feels Safe At This Time Smoking Status: Never smoker Do You Dip or Chew Tobacco: No ; Second Hand Exposure: No ; Tobacco Cessation Education Requested by Patient: No Hx Alcohol Use: No Hx Substance Use: No Review of Systems A total of 10 systems reviewed and were otherwise negative Physical Exam Vital Signs Vital Signs - 24 hr 04/03/20 13:00 04/03/20 13:15 04/03/20 13:30 Temperature Temperature Source Pulse Rate 105 H 103 H 102 H Pulse Rate [Right Finger] Respiratory Rate 18 18 22 Blood Pressure 137/69 136/69 133/73 Blood Pressure [Right Arm] Blood Pressure Mean 103 82 91 Blood Pressure Mean [Right Arm] Blood Pressure Position [Right Arm] Pulse Oximetry Oxygen Delivery Method 04/03/20 13:45 04/03/20 14:18 04/03/20 14:59 Temperature 38.1 C H Temperature Source Oral Pulse Rate 105 H 105 H Pulse Rate [Right Finger] 104 H Respiratory Rate 19 20 Blood Pressure 109/96 Blood Pressure [Right Arm] 133/85 Blood Pressure Mean 106 Blood Pressure Mean [Right Arm] 101 Blood Pressure Position [Right Arm] Lying Pulse Oximetry 96 Oxygen Delivery Method Room Air 04/03/20 15:17 04/03/20 16:03 04/03/20 19:07 Temperature 37.5 C 38 C H 37.9 C H Temperature Source Oral Oral Oral Pulse Rate Pulse Rate [Right Finger] 107 H 95 H 91 H Respiratory Rate 18 16 18 Blood Pressure Blood Pressure [Right Arm] 149/78 H 129/61 114/69 Blood Pressure Mean Blood Pressure Mean [Right Arm] 101 83 84 Blood Pressure Position [Right Arm] Lying Lying Pulse Oximetry 99 95 98 Oxygen Delivery Method Room Air Room Air 04/03/20 23:39 04/04/20 04:33 04/04/20 08:02 Temperature 37.4 C 38.8 C H Temperature Source Oral Oral Pulse Rate 97 H Pulse Rate [Right Finger] 89 88 Respiratory Rate 15 18 Blood Pressure Blood Pressure [Right Arm] 103/59 L 99/63 L Blood Pressure Mean Blood Pressure Mean [Right Arm] 73 75 Blood Pressure Position [Right Arm] Lying Lying Pulse Oximetry 96 96 Oxygen Delivery Method Room Air Room Air 04/04/20 09:00 Temperature Temperature Source Pulse Rate 84 Pulse Rate [Right Finger] Respiratory Rate Blood Pressure Blood Pressure [Right Arm] Blood Pressure Mean Blood Pressure Mean [Right Arm] Blood Pressure Position [Right Arm] Pulse Oximetry Oxygen Delivery Method VITAL SIGNS - Vital signs and nursing notes were reviewed. GENERAL - 69-year-old female appearing stated age who is in no acute distress. Communicates well with provider and answers questions appropriately. SKIN - Without rashes. HEAD - NC/AT. EYES - PERRL with EOMI bilaterally. Sclera anicteric. Palpebral conjunctiva pink and moist with no injection noted. EARS - No deformities of external structures noted on gross examination bilaterally. No pain elicited with palpation of the tragus bilaterally. External auditory canals without discharge or otorrhea. Tympanic membranes pearly jensen w ithout retraction or bulging. No fluid or purulent material visualized behind the TM. Handle of malleus, umbo, cone of light, pars tensa/flaccid all easily visualized. NOSE - Midline and without cyanosis. No epistaxis or purulent drainage noted. Septum midline without deviation or septal hematoma noted. MOUTH/OROPHARYNX - Without perioral cyanosis. Buccal mucosa pink and moist and without leukoplakia. Tongue midline with equal elevation of palate bilaterally. No tonsillar hypertrophy, erythema, or exudates noted. dentition noted. NECK - Neck with FROM. Supple to palpation. lymphadenopathy noted. No nuchal rigidity. LUNGS - Chest wall symmetric without accessory muscle use, intercostals retractions, or central cyanosis. Normal vesicular breath sounds CTA B/L. No wheezes, rales, or rhonchi appreciated. CARDIAC - RRR with S1/S2. No murmur, rubs, or gallops appreciated. ABDOMEN - Abdominal contour without pulsations or visible masses. BS normoactive all four quadrants. No tenderness, palpable masses, hepatosplenomegaly, or ascites noted. Colostomy present LLQ, large amount of o utput noted. EXTREMITIES - No clubbing or peripheral cyanosis. No pretibial edema present. +3/5 radial, posterior tibial, and dorsalis pedis pulses palpated throughout. +5/5 strength noted in UE/LE bilaterally. NEUROLOGIC - Cranial nerves II through XII grossly intact. Sensory intact to light touch throughout. Patellar reflexes +2/4. PSYCH - A&Ox3 and cooperates fully with examiner. Pt is very pleasant and interacts well with examiner. Course Administered Medications Enoxaparin Sodium (Lovenox) 40 mg SQ QPM [facility] Stop: 05/03/20 20:59 Last Admin: 04/03/20 21:17 Dose: 40 mg Documented by: [id number] Gabapentin (Neurontin) 600 mg PO TID [facility] Stop: 05/03/20 20:59 Last Admin: 04/04/20 08:53 Dose: 600 mg Documented by: [id number] Admin: 04/03/20 21:16 Dose: 600 mg Documented by: [id number] Acetaminophen (Ofirmev) 1,000 mg in 100 mls @ 400 mls/hr IV Q8H PRN PRN Reason: Pain or Fever Stop: 04/06/20 14:53 Last Infusion: 04/04/20 09:55 Dose: 0 mls/hr Documented by: [id number] Admin: 04/04/20 09:24 Dose: 400 mls/hr Documented by: [id number] Infusion: 04/04/20 00:46 Dose: 0 mls/hr Documented by: [id number] Admin: 04/04/20 00:24 Dose: 400 mls/hr Documented by: [id number] Infusion: 04/03/20 16:19 Dose: 0 mls/hr Documented by: [id number] Admin: 04/03/20 15:15 Dose: 400 mls/hr Documented by: [id number] Promethazine HCl 12.5 mg/ (Sodium Chloride) 50.5 mls @ 202 mls/hr IV Q6H PRN PRN Reason: Nausea And Vomiting Stop: 05/03/20 20:22 Last Infusion: 04/03/20 22:17 Dose: 0 mls/hr Documented by: [id number] Admin: 04/03/20 21:09 Dose: 202 mls/hr Documented by: [id number] Lorazepam (Ativan) 0.5 mg PO QID PRN PRN Reason: Anxiety Stop: 05/03/20 14:11 Last Admin: 04/04/20 05:26 Dose: 0.5 mg Documented by: [id number] Admin: 04/03/20 19:36 Dose: 0.5 mg Documented by: [id number] Carbatrol 200mg - (Patient's Own Med) 1 ea PO TID [facility] Stop: 05/03/20 20:59 Last Admin: 04/04/20 08:52 Dose: 1 cap Documented by: [id number] Admin: 04/03/20 21:17 Dose: 1 cap Documented by: [id number] Ondansetron HCl (Zofran) 4 mg IV Q4H PRN PRN Reason: Nausea Stop: 05/03/20 19:22 Last Admin: 04/04/20 05:27 Dose: 4 mg Documented by: [id number] Admin: 04/03/20 19:36 Dose: 4 mg Documented by: [id number] Raspberry (Raspberry) 5 ml PO Q6 JEFF Stop: 04/18/20 05:59 Last Admin: 04/04/20 11:53 Dose: 5 ml Documented by: [id number] Admin: 04/04/20 05:56 Dose: 5 ml Documented by: [id number] Vancomycin HCl (Vancomycin Hcl) 125 mg PO Q6 JEFF; Protocol Stop: 04/14/20 05:59 Last Admin: 04/04/20 11:53 Dose: 125 mg Documented by: [id number] Admin: 04/04/20 05:56 Dose: 125 mg Documented by: [id number] Discontinued Medications Gabapentin (Neurontin) 600 mg PO NOW STA Stop: 04/03/20 13:28 Last Admin: 04/03/20 14:17 Dose: Not Given Documented by: [id number] Sodium Chloride (Nss 1000ml) 1,000 mls @ 999 mls/hr IV .Q1H1M ONE Stop: 04/03/20 09:37 Last Infusion: 04/03/20 14:13 Dose: 0 mls/hr Documented by: [id number] Admin: 04/03/20 09:05 Dose: 999 mls/hr Documented by: [id number] Sodium Chloride (Nss 1000ml) 1,000 mls @ 999 mls/hr IV .Q1H1M ONE Stop: 04/03/20 10:57 Last Infusion: 04/03/20 14:17 Dose: 0 mls/hr Documented by: [id number] Infusion: 04/03/20 10:11 Dose: 0 mls/hr Documented by: [id number] Admin: 04/03/20 10:10 Dose: 999 mls/hr Documented by: [id number] Sodium Chloride (Nss 1000ml) 500 mls @ 999 mls/hr IV .Q31M ONE Stop: 04/03/20 11:22 Last Admin: 04/03/20 14:13 Dose: Not Given Documented by: [id number] Lactated Ringer's (Lr) 1,000 mls @ 125 mls/hr IV .Q8H JEFF Stop: 05/03/20 15:29 Last Infusion: 04/04/20 11:49 Dose: 0 mls/hr Documented by: [id number] Admin: 04/04/20 08:54 Dose: 125 mls/hr Documented by: [id number] Infusion: 04/04/20 08:38 Dose: 125 mls/hr Documented by: [id number] Admin: 04/04/20 00:38 Dose: 125 mls/hr Documented by: [id number] Infusion: 04/04/20 00:38 Dose: 125 mls/hr Documented by: [id number] Admin: 04/03/20 16:51 Dose: 125 mls/hr Documented by: [id number] Lorazepam (Ativan) 0.5 mg PO NOW STA Stop: 04/03/20 13:30 Last Admin: 04/03/20 15:14 Dose: 0.5 mg Documented by: [id number] Carbatrol - Patient' (s Own Med) 1 ea PO NOW STA Stop: 04/03/20 13:28 Last Admin: 04/03/20 14:17 Dose: Not Given Documented by: [id number] Ondansetron HCl (Zofran) 4 mg IV NOW STA Stop: 04/03/20 13:01 Last Admin: 04/03/20 13:05 Dose: 4 mg Documented by: [id number] Medical Decision Making Differential Diagnosis Appendicitis, ovarian cyst, ovarian torsion, TOA, PID, infections, diverticulitis, UTI, obstruction, mesenteric ischemia, aortic pathology, inflammatory bowel disease, renal colic, PUD, pancreatitis, biliary pathology, hernia, volvulus, constipation, as well as other pathologies. Medical Records Attestation: I reviewed the patient's medical records. Home Medications Current Medication List: was personally reviewed by me Laboratory Data Attestation: I reviewed the patient's lab results. Result diagrams: 04/04/20 08:39 04/04/20 08:39 Lab Results 04/03/20 04/03/20 04/03/20 Range/Units 08:57 08:57 08:57 WBC 13.08 H (4.8-10.8) K/uL RBC 4.15 L (4.2-5.4) M/uL Hgb 13.1 (12.0-16.0) g/dL Hct 38.5 (37-47) % MCV 92.8 (80-100) fL MCH 31.6 (25-34) pg MCHC 34.0 (32-36) g/dL RDW Std Deviation 47.6 H (36.4-46.3) fL RDW Coeff of Aguila 14.0 (11.5-14.5) % Plt Count 276 (130-400) K/uL MPV 10.0 (7.4-10.4) fL Immature Gran % (Auto) 0.2 % Neut % (Auto) 92.5 % Lymph % (Auto) 2.8 % Henderson % (Auto) 4.3 % Eos % (Auto) 0.0 % Baso % (Auto) 0.2 % Immature Gran # (Auto) 0.03 H (0.00-0.02) K/uL Neut # (Auto) 12.11 H (1.4-6.5) K/uL Lymph # (Auto) 0.36 L (1.2-3.4) K/uL Henderson # (Auto) 0.56 (0.11-0.59) K/uL Eos # (Auto) 0.00 (0-0.5) K/uL Baso # (Auto) 0.02 (0-0.2) K/uL ESR 32 H (0-21) mm/hr PT 10.9 (9.0-12.0) Seconds INR 1.0 (0.9-1.1) APTT 24.9 (21.0-31.0) Seconds PTT Ratio 0.9 Sodium (136-145) mmol/L Potassium (3.5-5.1) mmol/L Chloride (98-107) mmol/L Carbon Dioxide (21-32) mmol/L Anion Gap (3-11) BUN (7-18) mg/dl Creatinine (0.6-1.2) mg/dl Est Cr Clr Drug Dosing ml/min Est GFR ( Amer) Est GFR (Non-Af Amer) BUN/Creatinine Ratio (10-20) Glucose (70-99) mg/dl Lactate (0.4-2.0) mmol/L Calcium (8.5-10.1) mg/dl Magnesium (1.8-2.4) mg/dl Total Bilirubin (0.2-1) mg/dl AST (15-37) U/L ALT (12-78) U/L Alkaline Phosphatase (45-117) U/L C-Reactive Protein (0-0.29) mg/dl Total Protein (6.4-8.2) gm/dl Albumin (3.4-5.0) gm/dl Globulin (2.5-4.0) gm/dl Albumin/Globulin Ratio (0.9-2) Lipase (73-393) U/L Procalcitonin (0-0.5) ng/ml Urine Color Urine Appearance (Clear) Urine pH (4.5-7.5) Ur Specific [place] (1.000-1.030) Urine Protein (Negative) Urine Glucose (UA) (Negative) Urine Ketones (Negative) Urine Blood (Negative) Urine Nitrite (Negative) Urine Bilirubin (Negative) Urine Urobilinogen (Negative) Ur Leukocyte Esterase (Negative) Urine WBC (Auto) (0-5) /hpf Urine RBC (Auto) (0-4) /hpf U Hyaline Cast (Auto) (0-5) /lpf U Epithel Cells (Auto) (0-5) /lpf Urine Bacteria (Auto) (Negative) Stl C. diff Tox B Gene Stl C.difficile Tox A&B (Negative) COVID-19 PCR (Negative) 04/03/20 04/03/20 04/03/20 Range/Units 08:57 08:57 08:57 WBC (4.8-10.8) K/uL RBC (4.2-5.4) M/uL Hgb (12.0-16.0) g/dL Hct (37-47) % MCV (80-100) fL MCH (25-34) pg MCHC (32-36) g/dL RDW Std Deviation (36.4-46.3) fL RDW Coeff of Aguila (11.5-14.5) % Plt Count (130-400) K/uL MPV (7.4-10.4) fL Immature Gran % (Auto) % Neut % (Auto) % Lymph % (Auto) % Henderson % (Auto) % Eos % (Auto) % Baso % (Auto) % Immature Gran # (Auto) (0.00-0.02) K/uL Neut # (Auto) (1.4-6.5) K/uL Lymph # (Auto) (1.2-3.4) K/uL [place] # (Auto) (0.11-0.59) K/uL Eos # (Auto) (0-0.5) K/uL Baso # (Auto) (0-0.2) K/uL ESR (0-21) mm/hr PT (9.0-12.0) Seconds INR (0.9-1.1) APTT (21.0-31.0) Seconds PTT Ratio Sodium 132 L (136-145) mmol/L Potassium 3.8 (3.5-5.1) mmol/L Chloride 101 (98-107) mmol/L Carbon Dioxide 25 (21-32) mmol/L Anion Gap 6.0 (3-11) BUN 9 (7-18) mg/dl Creatinine 0.77 (0.6-1.2) mg/dl Est Cr Clr Drug Dosing 68.9 ml/min Est GFR ( Amer) 92.6 Est GFR (Non-Af Amer) 79.9 BUN/Creatinine Ratio 11.4 (10-20) Glucose 123 H (70-99) mg/dl Lactate 1.4 (0.4-2.0) mmol/L Calcium 9.4 (8.5-10.1) mg/dl Magnesium 1.8 (1.8-2.4) mg/dl Total Bilirubin 0.5 (0.2-1) mg/dl AST 18 (15-37) U/L ALT 29 (12-78) U/L Alkaline Phosphatase 117 (45-117) U/L C-Reactive Protein 2.02 H (0-0.29) mg/dl Total Protein 7.3 (6.4-8.2) gm/dl Albumin 3.7 (3.4-5.0) gm/dl Globulin 3.6 (2.5-4.0) gm/dl Albumin/Globulin Ratio 1.0 (0.9-2) Lipase (73-393) U/L Procalcitonin 0.07 (0-0.5) ng/ml Urine Color Urine Appearance (Clear) Urine pH (4.5-7.5) Ur Specific [place] (1.000-1.030) Urine Protein (Negative) Urine Glucose (UA) (Negative) Urine Ketones (Negative) Urine Blood (Negative) Urine Nitrite (Negative) Urine Bilirubin (Negative) Urine Urobilinogen (Negative) Ur Leukocyte Esterase (Negative) Urine WBC (Auto) (0-5) /hpf Urine RBC (Auto) (0-4) /hpf U Hyaline Cast (Auto) (0-5) /lpf U Epithel Cells (Auto) (0-5) /lpf Urine Bacteria (Auto) (Negative) Stl C. diff Tox B Gene Stl C.difficile Tox A&B (Negative) COVID-19 PCR (Negative) 04/03/20 04/03/20 04/03/20 Range/Units 09:15 09:30 10:30 WBC (4.8-10.8) K/uL RBC (4.2-5.4) M/uL Hgb (12.0-16.0) g/dL Hct (37-47) % MCV (80-100) fL MCH (25-34) pg MCHC (32-36) g/dL RDW Std Deviation (36.4-46.3) fL RDW Coeff of Aguila (11.5-14.5) % Plt Count (130-400) K/uL MPV (7.4-10.4) fL Immature Gran % (Auto) % Neut % (Auto) % Lymph % (Auto) % [place] % (Auto) % Eos % (Auto) % Baso % (Auto) % Immature Gran # (Auto) (0.00-0.02) K/uL Neut # (Auto) (1.4-6.5) K/uL Lymph # (Auto) (1.2-3.4) K/uL [place] # (Auto) (0.11-0.59) K/uL Eos # (Auto) (0-0.5) K/uL Baso # (Auto) (0-0.2) K/uL ESR (0-21) mm/hr PT (9.0-12.0) Seconds INR (0.9-1.1) APTT (21.0-31.0) Seconds PTT Ratio Sodium (136-145) mmol/L Potassium (3.5-5.1) mmol/L Chloride (98-107) mmol/L Carbon Dioxide (21-32) mmol/L Anion Gap (3-11) BUN (7-18) mg/dl Creatinine (0.6-1.2) mg/dl Est Cr Clr Drug Dosing ml/min Est GFR ( Amer) Est GFR (Non-Af Amer) BUN/Creatinine Ratio (10-20) Glucose (70-99) mg/dl Lactate (0.4-2.0) mmol/L Calcium (8.5-10.1) mg/dl Magnesium (1.8-2.4) mg/dl Total Bilirubin (0.2-1) mg/dl AST (15-37) U/L ALT (12-78) U/L Alkaline Phosphatase (45-117) U/L C-Reactive Protein (0-0.29) mg/dl Total Protein (6.4-8.2) gm/dl Albumin (3.4-5.0) gm/dl Globulin (2.5-4.0) gm/dl Albumin/Globulin Ratio (0.9-2) Lipase 103 (73-393) U/L Procalcitonin (0-0.5) ng/ml Urine Color Yellow Urine Appearance Clear (Clear) Urine pH 8.0 H (4.5-7.5) Ur Specific [place] 1.018 (1.000-1.030) Urine Protein Negative (Negative) Urine Glucose (UA) Negative (Negative) Urine Ketones Negative (Negative) Urine Blood Negative (Negative) Urine Nitrite Negative (Negative) Urine Bilirubin Negative (Negative) Urine Urobilinogen Negative (Negative) Ur Leukocyte Esterase Trace H (Negative) Urine WBC (Auto) 1-5 (0-5) /hpf Urine RBC (Auto) 0-4 (0-4) /hpf U Hyaline Cast (Auto) 5-10 H (0-5) /lpf U Epithel Cells (Auto) >30 H (0-5) /lpf Urine Bacteria (Auto) Negative (Negative) Stl C. diff Tox B Gene TNP Stl C.difficile Tox A&B (Negative) COVID-19 PCR (Negative) 04/03/20 04/04/20 04/04/20 Range/Units 16:10 00:15 08:39 WBC 7.48 (4.8-10.8) K/uL RBC 3.53 L (4.2-5.4) M/uL Hgb 11.1 L (12.0-16.0) g/dL Hct 32.6 L (37-47) % MCV 92.4 (80-100) fL MCH 31.4 (25-34) pg MCHC 34.0 (32-36) g/dL RDW Std Deviation 47.2 H (36.4-46.3) fL RDW Coeff of Agu[place] 14.1 (11.5-14.5) % Plt Count 229 (130-400) K/uL MPV 10.2 (7.4-10.4) fL Immature Gran % (Auto) 0.1 % Neut % (Auto) 89.1 % Lymph % (Auto) 6.0 % [place] % (Auto) 4.7 % Eos % (Auto) 0.0 % Baso % (Auto) 0.1 % Immature Gran # (Auto) 0.01 (0.00-0.02) K/uL Neut # (Auto) 6.66 H (1.4-6.5) K/uL Lymph # (Auto) 0.45 L (1.2-3.4) K/uL [place] # (Auto) 0.35 (0.11-0.59) K/uL Eos # (Auto) 0.00 (0-0.5) K/uL Baso # (Auto) 0.01 (0-0.2) K/uL ESR (0-21) mm/hr PT (9.0-12.0) Seconds INR (0.9-1.1) APTT (21.0-31.0) Seconds PTT Ratio Sodium (136-145) mmol/L Potassium (3.5-5.1) mmol/L Chloride (98-107) mmol/L Carbon Dioxide (21-32) mmol/L Anion Gap (3-11) BUN (7-18) mg/dl Creatinine (0.6-1.2) mg/dl Est Cr Clr Drug Dosing ml/min Est GFR ( Amer) Est GFR (Non-Af Amer) BUN/Creatinine Ratio (10-20) Glucose (70-99) mg/dl Lactate (0.4-2.0) mmol/L Calcium (8.5-10.1) mg/dl Magnesium (1.8-2.4) mg/dl Total Bilirubin (0.2-1) mg/dl AST (15-37) U/L ALT (12-78) U/L Alkaline Phosphatase (45-117) U/L C-Reactive Protein (0-0.29) mg/dl Total Protein (6.4-8.2) gm/dl Albumin (3.4-5.0) gm/dl Globulin (2.5-4.0) gm/dl Albumin/Globulin Ratio (0.9-2) Lipase (73-393) U/L Procalcitonin (0-0.5) ng/ml Urine Color Urine Appearance (Clear) Urine pH (4.5-7.5) Ur Specific [place] (1.000-1.030) Urine Protein (Negative) Urine Glucose (UA) (Negative) Urine Ketones (Negative) Urine Blood (Negative) Urine Nitrite (Negative) Urine Bilirubin (Negative) Urine Urobilinogen (Negative) Ur Leukocyte Esterase (Negative) Urine WBC (Auto) (0-5) /hpf Urine RBC (Auto) (0-4) /hpf U Hyaline Cast (Auto) (0-5) /lpf U Epithel Cells (Auto) (0-5) /lpf Urine Bacteria (Auto) (Negative) Stl C. diff Tox B Gene Positive Cdiff Gene H Stl C.difficile Tox A&B Positive Cdiff Toxin A* (Negative) COVID-19 PCR NEGATIVE (Negative) 04/04/20 Range/Units 08:39 WBC (4.8-10.8) K/uL RBC (4.2-5.4) M/uL Hgb (12.0-16.0) g/dL Hct (37-47) % MCV (80-100) fL MCH (25-34) pg MCHC (32-36) g/dL RDW Std Deviation (36.4-46.3) fL RDW Coeff of [place] (11.5-14.5) % Plt Count (130-400) K/uL MPV (7.4-10.4) fL Immature Gran % (Auto) % Neut % (Auto) % Lymph % (Auto) % [place] % (Auto) % Eos % (Auto) % Baso % (Auto) % Immature Gran # (Auto) (0.00-0.02) K/uL Neut # (Auto) (1.4-6.5) K/uL Lymph # (Auto) (1.2-3.4) K/uL [place] # (Auto) (0.11-0.59) K/uL Eos # (Auto) (0-0.5) K/uL Baso # (Auto) (0-0.2) K/uL ESR (0-21) mm/hr PT (9.0-12.0) Seconds INR (0.9-1.1) APTT (21.0-31.0) Seconds PTT Ratio Sodium 134 L (136-145) mmol/L Potassium 3.2 L D (3.5-5.1) mmol/L Chloride 102 (98-107) mmol/L Carbon Dioxide 25 (21-32) mmol/L Anion Gap 7.0 (3-11) BUN 6 L (7-18) mg/dl Creatinine 0.58 L (0.6-1.2) mg/dl Est Cr Clr Drug Dosing 91.5 ml/min Est GFR ( Amer) 110.5 Est GFR (Non-Af Amer) 95.4 BUN/Creatinine Ratio 11.1 (10-20) Glucose 92 (70-99) mg/dl Lactate (0.4-2.0) mmol/L Calcium 8.4 L (8.5-10.1) mg/dl Magnesium (1.8-2.4) mg/dl Total Bilirubin (0.2-1) mg/dl AST (15-37) U/L ALT (12-78) U/L Alkaline Phosphatase (45-117) U/L C-Reactive Protein (0-0.29) mg/dl Total Protein (6.4-8.2) gm/dl Albumin (3.4-5.0) gm/dl Globulin (2.5-4.0) gm/dl Albumin/Globulin Ratio (0.9-2) Lipase (73-393) U/L Procalcitonin (0-0.5) ng/ml Urine Color Urine Appearance (Clear) Urine pH (4.5-7.5) Ur Specific [place] (1.000-1.030) Urine Protein (Negative) Urine Glucose (UA) (Negative) Urine Ketones (Negative) Urine Blood (Negative) Urine Nitrite (Negative) Urine Bilirubin (Negative) Urine Urobilinogen (Negative) Ur Leukocyte Esterase (Negative) Urine WBC (Auto) (0-5) /hpf Urine RBC (Auto) (0-4) /hpf U Hyaline Cast (Auto) (0-5) /lpf U Epithel Cells (Auto) (0-5) /lpf Urine Bacteria (Auto) (Negative) Stl C. diff Tox B Gene Stl C.difficile Tox A&B (Negative) COVID-19 PCR (Negative) Imaging Data Radiologist's Impression: [facility] [place], [place] [phone] XRay Report Patient: JHONNY CHRISTENSENmit Date: 04/03/20 MR#: [id number]: [id number] Acct ID:[id number]: Date: [address] [place] [address] Zip: [place] [address] Age: 69Location: ED Sex: F Room/Bed: Att Phy:Diagnosis: FEVER, STOMACH CRAMPS HAD STOM SURG 3 AGO Jenny Phy: Padmini HewittDDebbieO.Service Date: 04/03/20 Fam Phy:Interpreting Phy: Kris Lima MD Admit Phy: Ordering Phy: Easton Gregg MD cc: ~ XR chest 1V portable CLINICAL HISTORY: SEPSIS COMPARISON STUDY: 12/04/2019 FINDINGS: The cardiac and mediastinal contours are normal. There is no evidence of focal pulmonary consolidation. There is no evidence of failure. No pleural effusions are visualized.[There is minor left basilar atelectasis/scarring. Surgical clips project over the left breast. IMPRESSION: No active disease in the chest. ACT 112: Negative or not required by law. Electronically signed by: Kris Lima M.D. 04/03/2020 8:54 AM Dictated: 04/03/20 0854 Transcribed: 04/03/20 0854 [place], [place] [phone] CT Scan Report Patient: JHONNY CHRISTENSEN LAdmit Date: 04/03/20 MR#: [id number]: [address] Acct ID:[id number]: Date: [address] Zip: [place] [address] Age: 69Location: ED Sex: F Room/Bed: Att Phy:Diagnosis: FEVER, STOMACH CRAMPS HAD STOM SURG 3 AGO Jenny Phy: Padmini Hewitt D.O.Service Date: 04/03/20 [facility] Phy:Interpreting Phy: Kris Lima MD Admit Phy: Ordering Phy: Easton Gregg MD cc: ~ CT SCAN OF THE ABDOMEN AND PELVIS WITHOUT CONTRAST CLINICAL HISTORY: Abdominal pain and cramping. COMPARISON STUDY: March 09, 2020 TECHNIQUE: CT scan of the abdomen and pelvis was performed from the lung bases to the proximal femurs. Images are reviewed in the axial, sagittal, and coronal planes. IV contrast was not administered for this examination. A dose lowering technique was utilized adhering to the principles of ALARA. CT DOSE: 407.90 mGy.cm FINDINGS: Lower chest: There are mild dependent atelectatic changes. Liver: The unenhanced liver is normal in size, contour, and attenuation. There is no intrahepatic biliary ductal dilatation. Gallbladder: Surgically absent Spleen: Normal in size and attenuation. Pancreas: Unremarkable. Adrenal glands: Unremarkable. Kidneys: No renal, ureteral, or bladder calculi are visualized. Bowel: There are no transition zones to indicate bowel obstruction. Postsurgical changes are present within the colon. There is evidence for interval partial sigmoid resection with creation of a left lower quadrant colostomy. There is a Payne's pouch. There is mild colonic wall thickening proximal to the ostomy. There is minimal infiltration of the fat within the ostomy. There are no fluid collections to indicate an abscess. There is no evidence of acute appendicitis. Peritoneum: There is no intraperitoneal free air or abdominal ascites. Vasculature: The abdominal aorta is normal in course and caliber. Adenopathy: None. Pelvic viscera: The bladder, and pelvic viscera are unremarkable. Skeletal structures: No destructive osseous lesions are seen. IMPRESSION: 1. Interval abdominal surgery for acute diverticulitis with partial sigmoid resection, creation of a left lower quadrant colostomy, and creation of a Merlin's pouch 2. No evidence of bowel obstruction. No evidence of free air 3. Mild colonic wall thickening proximal to the ostomy. 4. Minimal fat stranding within the ostomy. No evidence of abscess. ACT 112: Negative or not required by law. Electronically signed by: Kris Lima M.D. 04/03/2020 10:24 AM Dictated: 04/03/20 1014 Transcribed: 04/03/20 1014 ECG Data Attestation: I personally reviewed and interpreted this ECG as follows: Indication: + abdominal pain Rate (beats per minute): 98 Rhythm: + normal sinus ECG Intervals/blocks: + Normal QT-c (439) ECG [place]: + Normal ECG ST segments: no ST depression and no ST elevation Comparison ECG Date: from (12/04/2019) Change: no significant change MDM Narrative This is a 69-year-old female who presents the emergency department hypotensive tachycardic and febrile. The patient was given 30 cc of normal saline bolus. The patient was sent in by surgery over concerns that she may have an abscess however CAT scan of the abdomen pelvis does not show any evidence of an abscess. Due to the elevation in the white blood cell count along with the hypotension and tachycardia I did discuss the case with the hospitalist service who did agree to admit the patient. Patient is in agreement with the treatment plan. Patient was seen and evaluated as above in room C7. Review was performed of nursing notes and vital signs. I did review pertinent previous visits and patient history. After obtaining a thorough history and physical examination the above work up was performed. While in the department, I personally reevaluated the patient several times and each time the patient was found to be resting comfortably. The patient was educated upon management, educated upon todays findings/results, educated upon importance of follow up from today's visit, educated upon symptoms in which to return, had questions answered prior to discharge, verbalized understanding, and was discharged home in good condition. An order was placed for continuous cardiac monitoring. The monitor shows a rate of 74 with Normal Sinus rhythm. The patient was evaluated during the global COVID-19 pandemic, and that diagnosis was suspected/considered upon their initial presentation. Their evaluation, treatment and testing was consistent with current guidelines for patients who present with complaints or symptoms that may be related to COVID- 19. Impression & Plan SIRS (systemic inflammatory response syndrome), Abdominal pain, Colostomy present Discharge Plan Visit Data *Final* Discharge Date/Time: 04/03/20 13:46 Chief Complaint: Fever Stated Complaint: FEVER, STOMACH CRAMPS HAD STOM SURG 3 AGO ED Provider: Easton Gregg Discharge Problem: SIRS (systemic inflammatory response syndrome), Abdominal pain, Colostomy present Patient Disposition: Admitted As Inpatient Discharge Instructions Interventions: ED Discharge Assessment Last Done: 04/03/20 13:46 Discharge Problem: Abdominal pain Qualifiers: Abdominal location: generalized Qualified Code(s): R10.84 - Generalized abdominal pain
[2020-04-03 09:20] LABS: Basophils # (auto) 0.02 K/uL (0-0.2); Basophils % (auto) 0.2 %; Hematocrit (blood only) 38.5 % (37-47); Hemoglobin 13.1 g/dL (12.0-16.0); Immature Granulocytes # (auto) 0.03 K/uL (0.00-0.02); Immature Granulocytes % (auto) 0.2 %; Lymphocytes # (auto) 0.36 K/uL (1.2-3.4); Lymphocytes % (auto) 2.8 %; Mean Corpuscular Hemoglobin 31.6 pg (25-34); Mean Corpuscular Volume 92.8 fL (80-100); Monocytes # (auto) 0.56 K/uL (0.11-0.59); Monocytes % (auto) 4.3 %; Neutrophils # (auto) 12.11 K/uL (1.4-6.5); Neutrophils % (auto) 92.5 %; Platelet Count 276 K/uL (130-400); RDW Standard Deviation 47.6 fL (36.4-46.3); Red Blood Count 4.15 M/uL (4.2-5.4); White Blood Count 13.08 K/uL (4.8-10.8)
[2020-04-03 09:32] LABS: Partial Thromboplastin Ratio 0.9; Partial Thromboplastin Time 24.9 Seconds (21.0-31.0); Prothrombin Time 10.9 Seconds (9.0-12.0)
[2020-04-03 09:40] LABS: Albumin Level 3.7 gm/dl (3.4-5.0); BUN Creatinine Ratio 11.4 (10-20); C Reactive Protein 2.02 mg/dl (0-0.29); Calcium 9.4 mg/dl (8.5-10.1); Creatinine Clr Calc Pharmacy 68.9 ml/min; Est GFR (African American) 92.6; Est GFR (Non-African American) 79.9; Magnesium 1.8 mg/dl (1.8-2.4); Potassium 3.8 mmol/L (3.5-5.1)
[2020-04-03 09:43] LABS: Bilirubin,Total 0.5 mg/dl (0.2-1); Globulin 3.6 gm/dl (2.5-4.0); Total Protein 7.3 gm/dl (6.4-8.2)
--- NOTE | 2020-04-03 10:25 | CT Scan Report ---
CT SCAN OF THE ABDOMEN AND PELVIS WITHOUT CONTRAST CLINICAL HISTORY: Abdominal pain and cramping. COMPARISON STUDY: March 09, 2020 TECHNIQUE: CT scan of the abdomen and pelvis was performed from the lung bases to the proximal femurs . Images are reviewed in the axial, sagittal, and coronal planes. IV contrast was not administered fo r this examination. A dose lowering technique was utilized adhering to the principles of ALARA. CT DOSE: 407.90 mGy.cm FINDINGS: Lower chest: There are mild dependent atelectatic changes. Liver: The unenhanced liver is normal in size, contour, and attenuation. There is no intrahepatic vickie iary ductal dilatation. Gallbladder: Surgically absent Spleen: Normal in size and attenuation. Pancreas: Unremarkable. Adrenal glands: Unremarkable. Kidneys: No renal, ureteral, or bladder calculi are visualized. Bowel: There are no transition zones to indicate bowel obstruction. Postsurgical changes are present within the colon. There is evidence for interval partial sigmoid resection with creation of a left lo wer quadrant colostomy. There is a Payne's pouch. There is mild colonic wall thickening proximal to the ostomy. There is minimal infiltration of the fat within the ostomy. There are no fluid collectio ns to indicate an abscess. There is no evidence of acute appendicitis. Peritoneum: There is no intraperitoneal free air or abdominal ascites. Vasculature: The abdominal aorta is normal in course and caliber. Adenopathy: None. Pelvic viscera: The bladder, and pelvic viscera are unremarkable. Skeletal structures: No destructive osseous lesions are seen. IMPRESSION: 1. Interval abdominal surgery for acute diverticulitis with partial sigmoid resection, creation of a left lower quadrant colostomy, and creation of a Merlin's pouch 2. No evidence of bowel obstruction. No evidence of free air 3. Mild colonic wall thickening proximal to the ostomy. 4. Minimal fat stranding within the ostomy. No evidence of abscess. ACT 112: Negative or not required by law. Electronically signed by: Kris Lima M.D. 04/03/2020 10:24 AM
[2020-04-03] MEDS ORDERED: SODIUM CHLORIDE 0.9% 1000ML 500 ML IV ONE (10:52)
[2020-04-03 11:14] LABS: Appearance Urine Clear (Clear); Bacteria Urine Automated Negative (Negative); Bilirubin Urine Negative (Negative); Blood Urine Negative (Negative); Color Urine Yellow; Epithelial Cell Urine Auto >30 /lpf (0-5); Glucose Urine UA Negative (Negative); Ketones Urine Negative (Negative); Leukocyte Esterase Urine Trace (Negative); Nitrite Urine Negative (Negative); RBC Urine Automated 0-4 /hpf (0-4); Specific Gravity Urine 1.018 (1.000-1.030); Urobilinogen Urine Negative (Negative)
[2020-04-03 11:16] LABS: Protein Urine Negative (Negative); Sulfosalicylic Acid Urine Negative (Negative)
--- NOTE | 2020-04-03 12:41 | Surgery Consultation ---
Date of Consultation April 03, 2020 Assessment & Plan (1) Status post colectomy: CT findings likely postsurgical, no acute abdominal findings C. diff pending as above. ? etiology. with fever, leukocytosis would consider empiric antibiotics. no evidence of post op abcess. will follow along closely. History of Present Illness History of Present Illness 69 y/o female 3 weeks s/p Merlin's for perforated diverticulitis began not feeling well last evening. This morning had abdominal discomfort, bloating, increasing colostomy output, and fevers. Was slowly recovering at home, saw Dr. Luciano last week in clinic. Allergies Allergy/AdvReac Type Severity Reaction Status Date / Time meperidine Allergy Severe STOPPED Verified 04/03/20 10:12 BREATHING Iodinated Contrast Media Allergy Mild HIVES Verified 04/03/20 10:12 amitriptyline AdvReac Intermediate FEET Verified 04/03/20 10:12 NEUROPATHY, "ILL FEELING" codeine AdvReac Intermediate VOMITING Verified 04/03/20 10:12 dicyclomine AdvReac Intermediate CRAMPS, Verified 04/03/20 10:12 NAUSEA diphenhydramine AdvReac Intermediate HEART Verified 04/03/20 10:12 RACING erythromycin base AdvReac Intermediate N&V Verified 04/03/20 10:12 fentanyl AdvReac Intermediate DIZZINESS, Verified 04/03/20 10:12 NAUSEA omeprazole AdvReac Intermediate VOMITING Verified 04/03/20 10:12 pregabalin [From Lyrica] AdvReac Intermediate NAUSEA, Verified 04/03/20 10:12 "STRANGE SENSATION ALL OVER" procaine AdvReac Intermediate HEART Verified 04/03/20 10:12 RACING Sulfa (Sulfonamide AdvReac Intermediate N&V Verified 04/03/20 10:12 Antibiotics) baclofen AdvReac Mild VOMITING, Verified 04/03/20 10:12 "FELT WEIRD" epinephrine AdvReac Unknown HEART Verified 04/03/20 10:12 RACING ANTIHISTAMINES AdvReac Intermediate HEART Uncoded 04/03/20 10:12 RACING NARCOTICS AdvReac Intermediate "CAN'T Uncoded 04/03/20 10:12 TOLERATE" MUSCLERELAXANTS AdvReac Mild VOMITING Uncoded 04/03/20 10:12 Home Medications Home Medications Medication Instructions Recorded Confirmed Type ondansetron 8 mg PO DIRECTED PRN 08/30/18 04/03/20 History lorazepam 0.5 mg tablet 0.5 mg PO QID PRN 07/04/19 04/03/20 History Carbatrol 200 mg capsule, extended 200 mg PO TID 30 Days #90 cap NS 02/25/20 04/03/20 Rx release gabapentin 300 mg capsule 600 mg PO TID #180 cap 02/25/20 04/03/20 Rx Patient History Medical History (Updated 04/03/20 @ 15:14 by Noam Corley MD) Acute ischemic colitis (Inactive) Anxiety Cholecystitis, chronic Cholelithiases (Inactive) Costochondritis Diverticulitis of colon with perforation (Inactive) Gross hematuria (Inactive) Hemangioma LIVER AND CUTANEOUS History of breast cancer LEFT History of Nasima-Falcon virus infection Hyponatremia CHRONIC FELT 2/2 CARBATROL IBS (irritable bowel syndrome) MVP (mitral valve prolapse) HX PER PATIENT; NO RECENT ECHO Peritonitis Sepsis Peritonitis Trigeminal neuralgia of left side of face UTI (urinary tract infection) (Inactive) Surgical History (Updated 04/03/20 @ 15:12 by Noam Corley MD) History of colonoscopy History of lumpectomy of left breast + LND S/P cholecystectomy April 2019 Family History Father , CVA in his 40s that lead to "heart problems". at 56 y/o. Stroke Mother , age 63 of ruptured aneurysm No problems noted. Social History Preferred Language: Nigerien Communication Ability: Effective Competitive Shopper Required: No Beliefs That Will Affect Care: None marital status: Single Current Living Situation: Alone current occupational status: retired Other Information That Helps Us Care for You: No Feels Safe at Home: Yes Safety Concerns: Feels Safe At This Time Smoking Status: Never smoker Do You Dip or Chew Tobacco: No ; Second Hand Exposure: No ; Tobacco Cessation Education Requested by Patient: No Hx Alcohol Use: No Hx Substance Use: No Review of Systems Constitutional: + fever and + malaise Gastrointestinal: + abdominal pain and + bloating; no nausea and no vomiting Physical Exam Constitutional: WD/WN, vitals as above Respiratory: normal respiratory effort Cardiovascular: Rate/Rhythm: + tachycardic Gastrointestinal (Abdomen): Inspection/Auscultation: + abdominal surgical incision (well healed); abdomen not distended Percussion/Palpation: abdomen soft; abdomen nontender stoma pink, +colostomy output Results & Data Vital Signs (Past 12 Hours) Vital Signs Temp Pulse Pulse Resp BP BP Pulse Ox 04/03/20 11:45 104 H 23 128/62 97 04/03/20 11:30 103 H 20 116/84 97 04/03/20 11:15 106 H 18 121/69 04/03/20 11:03 96 04/03/20 11:00 99 H 14 137/69 98 04/03/20 10:57 108 H 20 116/83 98 04/03/20 10:45 102 H 17 95 04/03/20 10:16 102 H 17 133/67 97 04/03/20 10:13 101 H 17 133/67 97 04/03/20 10:12 102 H 24 91/74 L 04/03/20 10:00 100 H 22 122/58 L 96 04/03/20 09:45 100 H 16 143/62 H 97 04/03/20 09:36 99 H 18 137/54 L 97 04/03/20 09:00 37.7 C H 98 H 98 H 18 134/70 99 04/03/20 08:31 37.5 C 119 H 20 92/57 L 99 PG Care Time/CCT Total # of Minutes Spent Total Time Spent with Patient: Total time spent is greater than 50% in coordination of care (as documented) at patient's floor/unit and/or counseling patient: Coding Level of Care Code None Diagnoses Status post colectomy Z90.49
[2020-04-03] MEDS ORDERED: ONDANSETRON INJ 2 MG/ML 2 ML VIAL IV STA (13:00)
--- NOTE | 2020-04-03 13:06 | History & Physical Report ---
Date of Service April 03, 2020 Assessment & Plan (1) Pyrexia of unknown origin: Temp increased to 38.1 degrees C when moved to floor. Stool formed therefore c. diff testing was not performed. Discussed with surgery regarding mild colon thickening near colostomy thought not to be source of infection. Abdomen does not appear to be peritonitic on exam Stool and blood cultures pending No PNA on CXR UA negative for infection - will send for culture due to suprapubic pain Given no definitive source of infection will run COVID-19 test as some patients have GI symptoms as presenting complaint prior to respiratory symptoms. Although she meets SIRS criteria; she is non-septic appearing and source remains unknown therefore will continue to hold off on antibiotics, especially with her significant allergy list, unless she clinically deteriorates. (2) SIRS (systemic inflammatory response syndrome): See above for pyrexia of unknown origin. (3) Colostomy present: Noted increased output from this although stool is formed and this is a relatively acute problem. Monitor stool and if watery will run c. diff (4) Abdominal pain: Intermittent on multiple different areas. Suggestive of gastroenteritis/cramping rather than one area of infection. (5) Diarrhea: As above for colostomy Formed Stool culture pending (6) Trigeminal neuralgia of left side of face: Continue her home meds Carbatrol and gabapentin (7) IBS (irritable bowel syndrome): Noted history of this, which may explain her abdominal pains but not her fever. Unfortunately has side effects to Bentyl (8) Anxiety: Continue lorazepam QID PRN although noted she takes this quite regularly. (9) DVT prophylaxis: Lovenox 40mg SQ daily Admission and Anticipated Discharge Date Admission Date: 04/03/2020 History of Present Illness Primary Care Provider: DO Kelsy Turner Kirby is a 69 year old female with recent history of perforated diverticulitis requiring colostomy and Merlin's pouch who presents to the ER feeling generally unwell with increased abdominal pain and nausea. She generally felt she was improving from her discharge on March 17 up until last night. Her abdominal pain increased although this has been going on since her operation. Suprapubic but moves to multiple other locations. Intermittent. Severity 6/10 at worse, currently 1/10. Cramping in nature. Last night she ate rice, string beans and fish. Noted increased output from her colostomy today but not watery. She has had to change the bag 4 times already. No blood or melena. Pain has not been around the colostomy. Allergies Allergy/AdvReac Type Severity Reaction Status Date / Time meperidine Allergy Severe STOPPED Verified 04/03/20 10:12 BREATHING Iodinated Contrast Media Allergy Mild HIVES Verified 04/03/20 10:12 amitriptyline AdvReac Intermediate FEET Verified 04/03/20 10:12 NEUROPATHY, "ILL FEELING" codeine AdvReac Intermediate VOMITING Verified 04/03/20 10:12 dicyclomine AdvReac Intermediate CRAMPS, Verified 04/03/20 10:12 NAUSEA diphenhydramine AdvReac Intermediate HEART Verified 04/03/20 10:12 RACING erythromycin base AdvReac Intermediate N&V Verified 04/03/20 10:12 fentanyl AdvReac Intermediate DIZZINESS, Verified 04/03/20 10:12 NAUSEA omeprazole AdvReac Intermediate VOMITING Verified 04/03/20 10:12 pregabalin [From Lyrica] AdvReac Intermediate NAUSEA, Verified 04/03/20 10:12 "STRANGE SENSATION ALL OVER" procaine AdvReac Intermediate HEART Verified 04/03/20 10:12 RACING Sulfa (Sulfonamide AdvReac Intermediate N&V Verified 04/03/20 10:12 Antibiotics) baclofen AdvReac Mild VOMITING, Verified 04/03/20 10:12 "FELT WEIRD" epinephrine AdvReac Unknown HEART Verified 04/03/20 10:12 RACING ANTIHISTAMINES AdvReac Intermediate HEART Uncoded 04/03/20 10:12 RACING NARCOTICS AdvReac Intermediate "CAN'T Uncoded 04/03/20 10:12 TOLERATE" MUSCLERELAXANTS AdvReac Mild VOMITING Uncoded 04/03/20 10:12 Home Medications Home Medications Medication Instructions Recorded Confirmed Type ondansetron 8 mg PO DIRECTED PRN 08/30/18 04/03/20 History lorazepam 0.5 mg tablet 0.5 mg PO QID PRN 07/04/19 04/03/20 History Carbatrol 200 mg capsule, extended 200 mg PO TID 30 Days #90 cap NS 02/25/20 04/03/20 Rx release gabapentin 300 mg capsule 600 mg PO TID #180 cap 04/22/20 05/30/20 Rx Past Med/Surg History Medical History Acute ischemic colitis (Inactive) Anxiety Cholecystitis, chronic Cholelithiases (Inactive) Costochondritis Diverticulitis of colon with perforation (Inactive) Gross hematuria (Inactive) Hemangioma LIVER AND CUTANEOUS History of breast cancer LEFT History of Nasima-Falcon virus infection Hyponatremia CHRONIC FELT 2/2 CARBATROL IBS (irritable bowel syndrome) MVP (mitral valve prolapse) HX PER PATIENT; NO RECENT ECHO Peritonitis Sepsis Peritonitis Trigeminal neuralgia of left side of face UTI (urinary tract infection) (Inactive) Surgical History History of colonoscopy History of lumpectomy of left breast + LND S/P cholecystectomy April 2019 Family History Father , CVA in his 40s that lead to "heart problems". at 56 y/o. Stroke Mother , age 63 of ruptured aneurysm No problems noted. Social History Preferred Language: Chilean Communication Ability: Effective Card Writer Hand Required: No Beliefs That Will Affect Care: None marital status: Single Current Living Situation: Alone current occupational status: retired Other Information That Helps Us Care for You: No Feels Safe at Home: Yes Safety Concerns: Feels Safe At This Time Smoking Status: Never smoker Do You Dip or Chew Tobacco: No ; Second Hand Exposure: No ; Tobacco Cessation Education Requested by Patient: No Hx Alcohol Use: No Hx Substance Use: No Review of Systems Review of Systems: All systems reviewed & are unremarkable except as noted in HPI & below Physical Exam Constitutional: well developed and + ill appearing (appears fatigued but not septic); + not well nourished and no acute distress Eyes: + anicteric sclerae; normal pupil size ENMT: external ear and nose normal, oropharynx normal Neck: trachea midline, no thyromegaly Respiratory: normal respiratory effort, lungs clear to auscultation Cardiovascular: Rate/Rhythm: regular rhythm and + tachycardic Heart Sounds: no murmur Vessels: no JVD Extremities: normal capillary refill; no calf tenderness and no pedal edema Gastrointestinal (Abdomen): Inspection/Auscultation: normal bowel sounds and + abdominal surgical scar (healing recent surgical scars without surrounding cellulitis) Percussion/Palpation: abdomen soft; abdomen nontender, no gu arding and abdomen not rigid Musculoskeletal: no cyanosis or clubbing, extremities motor strength 5/5 Skin: no rashes, warm and dry Neurologic: moves all extremities and awake; no focal motor deficits and not confused Speech / Cognition: normal speech Motor/Sensory: no tremor Psychiatric: A+Ox3, euthymic affect Results & Data Results & Data ([facility]) Vital Signs (Past 12 Hours) Vital Signs Temp Pulse Pulse Resp BP BP Pulse Ox 04/03/20 12:32 105 H 16 125/86 97 04/03/20 12:31 102 H 17 40/29 L 99 04/03/20 12:15 102 H 26 H 122/63 96 04/03/20 12:00 101 H 18 143/68 H 99 04/03/20 11:45 104 H 23 128/62 97 04/03/20 11:30 103 H 20 116/84 97 04/03/20 11:15 106 H 18 121/69 04/03/20 11:03 96 04/03/20 11:00 99 H 14 137/69 98 04/03/20 10:57 108 H 20 116/83 98 04/03/20 10:45 102 H 17 95 04/03/20 10:16 102 H 17 133/67 97 04/03/20 10:13 101 H 17 133/67 97 04/03/20 10:12 102 H 24 91/74 L 04/03/20 10:00 100 H 22 122/58 L 96 04/03/20 09:45 100 H 16 143/62 H 97 04/03/20 09:36 99 H 18 137/54 L 97 04/03/20 09:00 37.7 C H 98 H 98 H 18 134/70 99 04/03/20 08:31 37.5 C 119 H 20 92/57 L 99 Diagnostic Findings XR chest 1V portable IMPRESSION: No active disease in the chest. CT SCAN OF THE ABDOMEN AND PELVIS WITHOUT CONTRAST IMPRESSION: 1. Interval abdominal surgery for acute diverticulitis with partial sigmoid resection, creation of a left lower quadrant colostomy, and creation of a Merlin's pouch 2. No evidence of bowel obstruction. No evidence of free air 3. Mild colonic wall thickening proximal to the ostomy. 4. Minimal fat stranding within the ostomy. No evidence of abscess. ECG Indication: abdominal pain Rate (beats per minute): 98 Rhythm: normal sinus Findings: no acute ischemic change Comparison ECG Date: from (12/04/2019) Change: the following changes noted (TWI no longer present in inferior leads) Code Status & VTE Plan Code Status Full VTE Prophylaxis Plan VTE Prophylaxis will be ordered: Yes PG Care Time/CCT Total # of Minutes Spent Total Time Spent with Patient: Total time spent is greater than 50% in coordination of care (as documented) at patient's floor/unit and/or counseling patient: Coding Level of Care Code 53482 OBS Care - Level 3 Diagnoses Pyrexia of unknown origin R50.9 SIRS (systemic inflammatory response syndrome) R65.10 Colostomy present Z93.3 Abdominal pain R10.9 Diarrhea R19.7 Trigeminal neuralgia of left side of face G50.0 IBS (irritable bowel syndrome) K58.9 Anxiety F41.9 DVT prophylaxis Z29.9
[2020-04-03] MEDS ORDERED: GABAPENTIN 600 MG TAB PO STA (13:27)
[2020-04-03] MEDS ORDERED: CARBATROL PO STA (13:27)
[2020-04-03] MEDS ORDERED: LORazepam 0.5 MG TAB PO STA (13:29)
[2020-04-03] MEDS: ACETAMINOPHEN 1,000 MG/100 ML VIAL IV PRN (15:15)
[2020-04-03] MEDS: LACTATED RINGER'S 1,000 ML IV SCH (16:51)
[2020-04-03] MEDS: ONDANSETRON INJ 2 MG/ML 2 ML VIAL IV PRN (19:36)
[2020-04-03] MEDS: LORazepam 0.5 MG TAB PO PRN (19:36)
[2020-04-03] MEDS ORDERED: PROMETHAZINE HCL 12.5 MG in SODIUM CHLORIDE 0.9% 50 ML IV PRN (20:23)
[2020-04-03] MEDS ORDERED: CARBAMAZEPINE 200 MG TABCR PO SCH (21:00)
[2020-04-03] MEDS: GABAPENTIN 300 MG CAP PO SCH (21:16)
[2020-04-03] MEDS: ENOXAPARIN INJ 40 MG/0.4 ML SYR SQ SCH (21:17)
[2020-04-03] MEDS: CARBATROL 200 MG PO SCH (21:17)
[2020-04-04] MEDS: ACETAMINOPHEN 1,000 MG/100 ML VIAL IV PRN ×2 (00:24→09:24)
[2020-04-04] MEDS: LACTATED RINGER'S 1,000 ML IV SCH ×2 (00:38→08:54)
[2020-04-04 02:50] LABS: Cdiff Antigen Positive; Cdiff Toxin A+B Positive Cdiff Toxin (Negative)
[2020-04-04] MEDS: LORazepam 0.5 MG TAB PO PRN ×4 (05:26→21:45)
[2020-04-04] MEDS: ONDANSETRON INJ 2 MG/ML 2 ML VIAL IV PRN ×2 (05:27→16:37)
[2020-04-04] MEDS: VANCOMYCIN HCL 125 MG/2.5ML SOLN PO SCH ×4 (05:56→23:36)
[2020-04-04] MEDS: RASPBERRY SYRUP 5 ML UDP PO SCH ×4 (05:56→23:36)
--- NOTE | 2020-04-04 07:34 | Electrocardiogram Report ---
Test Reason : Blood Pressure : / mmHG Vent. Rate : 098 BPM Atrial Rate : 098 BPM P-R Int : 178 ms QRS Dur : 088 ms QT Int : 344 ms P-R-T Axes : 057 037 031 degrees QTc Int : 439 ms Normal sinus rhythm Possible Left atrial enlargement Borderline ECG When compared with ECG of 04-DEC-2019 11:41, Nonspecific T wave abnormality has replaced inverted T waves in Inferior leads Confirmed by Andres Spencer ([id number]) on 04/04/2020 7:34:51 AM Referred By: REFERRED SELF Confirmed By:Andres Spencer
[2020-04-04] MEDS: CARBATROL 200 MG PO SCH ×3 (08:52→20:39)
[2020-04-04] MEDS: GABAPENTIN 300 MG CAP PO SCH ×3 (08:53→20:39)
[2020-04-04 09:53] LABS: Basophils # (auto) 0.01 K/uL (0-0.2); Basophils % (auto) 0.1 %; Hematocrit (blood only) 32.6 % (37-47); Hemoglobin 11.1 g/dL (12.0-16.0); Immature Granulocytes # (auto) 0.01 K/uL (0.00-0.02); Immature Granulocytes % (auto) 0.1 %; Lymphocytes # (auto) 0.45 K/uL (1.2-3.4); Mean Corpuscular Hemoglobin 31.4 pg (25-34); Mean Corpuscular Volume 92.4 fL (80-100); Mean Platelet Volume 10.2 fL (7.4-10.4); Monocytes # (auto) 0.35 K/uL (0.11-0.59); Monocytes % (auto) 4.7 %; Neutrophils # (auto) 6.66 K/uL (1.4-6.5); Neutrophils % (auto) 89.1 %; Platelet Count 229 K/uL (130-400); RDW Coefficient of Variation 14.1 % (11.5-14.5); RDW Standard Deviation 47.2 fL (36.4-46.3); Red Blood Count 3.53 M/uL (4.2-5.4); White Blood Count 7.48 K/uL (4.8-10.8)
--- NOTE | 2020-04-04 10:25 | Surgery Progress Note ---
Date of Service April 04, 2020 Assessment & Plan (1) C. difficile colitis: on oral vanco clinically improving wbc improved can try full liquids/no dairy products. Subjective pt seen. feeling improvement from yesterday. some loose stool from stoma last night but improved today. "hungry". wants more to eat. Physical Exam Physical Exam: alert. nad abd: soft. stoma looks good. minimal diffuse ttp. no g/r/r Results & Data Vital Signs (Past 12 Hours) Vital Signs Temp Pulse Pulse Resp BP Pulse Ox 04/04/20 08:02 38.8 C H 88 18 99/63 L 96 04/04/20 04:33 37.4 C 89 15 103/59 L 96 04/03/20 23:39 97 H PG Care Time/CCT Total # of Minutes Spent Total Time Spent with Patient: Total time spent is greater than 50% in coordination of care (as documented) at patient's floor/unit and/or counseling patient: Coding Level of Care Code None Diagnoses C. difficile colitis A04.72
[2020-04-04 10:26] LABS: BUN Creatinine Ratio 11.1 (10-20); Calcium 8.4 mg/dl (8.5-10.1); Creatinine Clr Calc Pharmacy 91.5 ml/min; Est GFR (African American) 110.5; Est GFR (Non-African American) 95.4; Potassium 3.2 mmol/L (3.5-5.1)
--- NOTE | 2020-04-04 11:48 | Hospitalist Progress Note ---
Date of Service April 04, 2020 Assessment & Plan (1) C. difficile colitis: Vancomycin 125mg QID for 10 days (2) Sepsis: Present on admission but no source identified at that time. Source now identified as c. diff colitis COVID-19 negative Urine culture positive but no symptoms from this and c. diff much more likely to be causing infection given no urinary symptoms. As long as clinically improving will elect not to treat this in setting of c. diff likely to makethis worse. Stool and blood cultures pending (3) Asymptomatic bacteriuria: Likely pseudomonal species growing in urine culture. No urinary symptoms however. Suspected asymptomatic and not treating in setting of c. diff colitis. (4) Colostomy present: Noted (5) Trigeminal neuralgia of left side of face: Continue her home meds Carbatrol and gabapentin (6) IBS (irritable bowel syndrome): Noted history of this. (7) Anxiety: Continue lorazepam QID PRN although noted she takes this quite regularly. (8) DVT prophylaxis: Lovenox 40mg SQ daily Admission and Anticipated Discharge Date Admission Date: April 04, 2020 Anticipated date of discharge: 04/05/20 Subjective Patient had a fall over night as she tripped over the IV stand. Fell on her sacrum, without significant pain. No LOC or hitting her head. No groin pain with walking. Loose stool overnight. Retested for c. diff and was positive. Review of Systems Review of Systems: All systems reviewed & are unremarkable except as noted in HPI & below Physical Exam Constitutional: WD/WN, vitals as above Eyes: + anicteric sclerae; pupils not irregular Gastrointestinal (Abdomen): Percussion/Palpation: abdomen soft; abdomen nontender, no guarding and abdomen not rigid Liquid stool in colostomy bag Neurologic: moves all extremities and awake Results & Data Results & Data ([facility]) Vital Signs (Past 12 Hours) Vital Signs Temp Pulse Resp BP Pulse Ox 04/04/20 11:43 37.2 C 74 18 106/65 94 04/04/20 08:02 38.8 C H 88 18 99/63 L 96 04/04/20 04:33 37.4 C 89 15 103/59 L 96 PG Care Time/CCT Total # of Minutes Spent Total Time Spent with Patient: Total time spent is greater than 50% in coordination of care (as documented) at patient's floor/unit and/or counseling patient: Coding Level of Care Code 22072 Subseq Hosp Care Lvl 2 Diagnoses C. difficile colitis A04.72 Sepsis A41.9 Sepsis type: sepsis due to unspecified organism Sepsis acute organ dysfunction status: without acute organ dysfunction Asymptomatic bacteriuria R82.71 Colostomy present Z93.3 Trigeminal neuralgia of left side of face G50.0 IBS (irritable bowel syndrome) K58.9 Anxiety F41.9 DVT prophylaxis Z29.9 (1) Sepsis Sepsis type: sepsis due to unspecified organism Sepsis acute organ d ysfunction status: without acute organ dysfunction Qualified Code(s): A41.9 - Sepsis, unspecified organism
[2020-04-04] MEDS: IBUPROFEN 200 MG TAB PO PRN (18:17)
[2020-04-04] MEDS: ENOXAPARIN INJ 40 MG/0.4 ML SYR SQ SCH (20:39)
[2020-04-04] MEDS ORDERED: POTASSIUM CHLORIDE 20 MEQ TABCR PO STA (21:20)
[2020-04-05] MEDS: VANCOMYCIN HCL 125 MG/2.5ML SOLN PO SCH ×2 (05:49→11:35)
[2020-04-05] MEDS: LORazepam 0.5 MG TAB PO PRN ×2 (05:49→12:02)
[2020-04-05] MEDS: RASPBERRY SYRUP 5 ML UDP PO SCH ×2 (05:49→11:35)
[2020-04-05] MEDS: ONDANSETRON INJ 2 MG/ML 2 ML VIAL IV PRN (05:49)
[2020-04-05] MEDS: IBUPROFEN 200 MG TAB PO PRN (06:28)
--- NOTE | 2020-04-05 08:07 | Hospitalist Progress Note ---
Date of Service April 05, 2020 Assessment & Plan (1) C. difficile colitis: Vancomycin 125mg QID for 10 days (2) Sepsis: Present on admission but no source identified at that time. Source now identified as c. diff colitis COVID-19 negative Urine culture positive but no symptoms from this and c. diff much more likely to be causing infection given no urinary symptoms. As long as clinically improving will elect not to treat this in setting of c. diff likely to makethis worse. Stool and blood cultures pending (3) Asymptomatic bacteriuria: Likely pseudomonal species growing in urine culture. No urinary symptoms however. Suspected asymptomatic and not treating in setting of c. diff colitis. (4) Colostomy present: Noted (5) Trigeminal neuralgia of left side of face: Continue her home meds Carbatrol and gabapentin (6) IBS (irritable bowel syndrome): Noted history of this. (7) Anxiety: Continue lorazepam QID PRN although noted she takes this quite regularly. (8) DVT prophylaxis: Lovenox 40mg SQ daily Admission and Anticipated Discharge Date Admission Date: April 04, 2020 Results & Data Results & Data ([facility]) Vital Signs (Past 12 Hours) Vital Signs Temp Pulse Pulse Resp BP Pulse Ox 04/05/20 07:30 98.4 F 75 18 111/67 96 04/05/20 04:00 97.9 F 78 18 125/78 98 04/05/20 00:56 69 04/04/20 23:49 98.2 F 67 16 117/71 96 PG Care Time/CCT Total # of Minutes Spent Total Time Spent with Patient: Total time spent is greater than 50% in coordination of care (as documented) at patient's floor/unit and/or counseling patient: Coding Diagnoses C. difficile colitis A04.72 Sepsis A41.9 Sepsis acute organ dysfunction status: without acute organ dysfunction Sepsis type: sepsis due to unspecified organism Asymptomatic bacteriuria R82.71 Colostomy present Z93.3 Trigeminal neuralgia of left side of face G50.0 IBS (irritable bowel syndrome) K58.9 Anxiety F41.9 DVT prophylaxis Z29.9 (1) Sepsis Sepsis acute organ dysfunction status: without acute organ dysfunction Sepsis type: sepsis due to unspecified organism Qualified Code(s): A41.9 - Sepsis, unspecified organism
[2020-04-05] MEDS ORDERED: NSS + 20MEQ KCL 20 MEQ/1,000 ML BAG IV SCH (08:30)
[2020-04-05] MEDS: GABAPENTIN 300 MG CAP PO SCH (08:44)
[2020-04-05] MEDS: CARBATROL 200 MG PO SCH (08:45)
[2020-04-05] MEDS ORDERED: POTASSIUM CHLORIDE 20 MEQ TABCR PO SCH (09:00)
--- NOTE | 2020-04-05 10:49 | Surgery Progress Note ---
Date of Service April 05, 2020 Assessment & Plan (1) C. difficile colitis: Patient feeling much better than admission for treatment of C. difficile colitis She has had some hypokalemia which we are treating There is consideration of letting her go home later today Subjective Patient sitting at the side of the bed Her vital signs are stable Physical Exam Constitutional: well developed; no acute distress Respiratory: normal respiratory effort; no respiratory distress Cardiovascular: Rate/Rhythm: regular rhythm Gastrointestinal (Abdomen): Inspection/Auscultation: abdomen not distended Skin: no rashes, warm and dry Neurologic: awake Psychiatric: Orientation: alert Results & Data Vital Signs (Past 12 Hours) Vital Signs Temp Pulse Pulse Resp BP Pulse Ox 04/05/20 07:30 36.9 C 75 18 111/67 96 04/05/20 04:00 36.6 C 78 18 125/78 98 04/05/20 00:56 69 04/04/20 23:49 36.8 C 67 16 117/71 96 PG Care Time/CCT Total # of Minutes Spent Total Time Spent with Patient: Total time spent is greater than 50% in coordination of care (as documented) at patient's floor/unit and/or counseling patient: Coding Level of Care Code 70518 Inpt Consult Level 3 Diagnoses C. difficile colitis A04.72
--- NOTE | 2020-04-05 17:18 | Discharge Summary ---
Date of Service April 05, 2020 Admission HPI Per Admitting Provider Kelsy Orr is a 69 year old female with recent history of perforated diverticulitis requiring colostomy and Merlin's pouch who presents to the ER feeling generally unwell with increased abdominal pain and nausea. She generally felt she was improving from her discharge on March 17 up until last night. Her abdominal pain increased although this has been going on since her operation. Suprapubic but moves to multiple other locations. Intermittent. Severity 6/10 at worse, currently 1/10. Cramping in nature. Last night she ate rice, string beans and fish. Noted increased output from her colostomy today but not watery. She has had to change the bag 4 times already. No blood or melena. Pain has not been around the colostomy. Principal Diagnosis clostridium difficile colitis hypokalemia Discharge Exam The patient appeared well Vital signs as documented. Lungs are clear to auscultation and appear unlabored Cardiac exam, Rhythm is regular.. No murmurs, rubs or gallops. Abdominal exam reveals normal bowel sounds, soft Extremities are nonedematous and both pedal pulses are normal. Neurologic exam is alert and oriented, no focal loss of strength or sensation Skin is without bruises or rashes Psychologically is without concerns for anxiety or depression Discharge Data Allergies Allergy/AdvReac Type Severity Reaction Status Date / Time meperidine Allergy Severe STOPPED Verified 04/03/20 10:12 BREATHING Iodinated Contrast Media Allergy Mild HIVES Verified 04/03/20 10:12 amitriptyline AdvReac Intermediate FEET Verified 04/03/20 10:12 NEUROPATHY, "ILL FEELING" codeine AdvReac Intermediate VOMITING Verified 04/03/20 10:12 dicyclomine AdvReac Intermediate CRAMPS, Verified 04/03/20 10:12 NAUSEA diphenhydramine AdvReac Intermediate HEART Verified 04/03/20 10:12 RACING erythromycin base AdvReac Intermediate N&V Verified 04/03/20 10:12 fentanyl AdvReac Intermediate DIZZINESS, Verified 04/03/20 10:12 NAUSEA omeprazole AdvReac Intermediate VOMITING Verified 04/03/20 10:12 pregabalin [From Lyrica] AdvReac Intermediate NAUSEA, Verified 04/03/20 10:12 "STRANGE SENSATION ALL OVER" procaine AdvReac Intermediate HEART Verified 04/03/20 10:12 RACING Sulfa (Sulfonamide AdvReac Intermediate N&V Verified 04/03/20 10:12 Antibiotics) baclofen AdvReac Mild VOMITING, Verified 04/03/20 10:12 "FELT WEIRD" epinephrine AdvReac Unknown HEART Verified 04/03/20 10:12 RACING ANTIHISTAMINES AdvReac Intermediate HEART Uncoded 04/03/20 10:12 RACING NARCOTICS AdvReac Intermediate "CAN'T Uncoded 04/03/20 10:12 TOLERATE" MUSCLERELAXANTS AdvReac Mild VOMITING Uncoded 04/03/20 10:12 Consultations 04/03/20 11:16 Consult General Surgery Stat ED Decision to Admit Stat Ordered Studies 04/03/20 09:01 CT abd pelvis wo con Stat Hospital Course (1) C. difficile colitis: Vancomycin 125mg QID for 10 days (2) Sepsis: Source now identified as c. diff colitis COVID-19 negative Urine culture positive but <20,000 pseudomonas, and no symptoms from this c. diff much more likely to be causing infection given no urinary symptoms. As long as clinically improving will elect not to treat this in setting of c. diff Stool and blood cultures negative (3) Asymptomatic bacteriuria: Likely pseudomonal species growing in urine culture. No urinary symptoms however. Suspected asymptomatic and not treating in setting of c. diff colitis. i personally educated the pt on this topic and included insturctions to discuss with pcp (4) Colostomy present: Noted (5) Trigeminal neuralgia of left side of face: Continue her home meds Carbatrol and gabapentin (6) IBS (irritable bowel syndrome): Noted history of this. (7) Anxiety: Continue lorazepam QID PRN although noted she takes this quite regularly. (8) Hypokalemia: will send home on oral potassium with a recheck of labs on 04/07 by home nursing Total Time Total Time Spent Total Time Spent (In Minutes): It required greater than 30 minutes to prepare this patient for discharge Discharge Plan Discharge Items Patient Disposition: Home - Home Health Services Reason For Visit: HIGH OUTPUT STOMA,DEHYDRATION Discharge Diagnosis: Clostridium Difficile colitis Low potassium from diarrhea COVID test negative asymptomatic bacturia Activity: Resume your previous activity Non-emergency contact: Primary Care Provider Call non-emergency contact if: you have any medication questions Follow-up/Referrals: Padmini eHwitt, [Primary Care Provider] - 04/12/20 10:30 am (Please, follow up at Dr. Padmini Hewitt's office with her associate, Chantel TORRES, on SundayApril 12 at 10:30 am. *If you need to change this appointment, call their office at [phone].) Diet: Regular Ambulatory Orders: Basic Metabolic Panel (Routine) Timeframe: 2 Days Location: Determined by Patient Ordered By: Dash Lozano Attending Provider Instructions: please rest and hydrate, use both water and fluids containing electrolytes such as gatoraide and power aide take your potassium twice a day until done or instructed otherwise by Dr Hewitt's office have outpt blood work checked on saturday 04/[address] Hewitt. Asymptomatic bacteriuria is the presence of bacteria in the properly collected urine of a patient that has no signs or symptoms of a urinary tract infection. Good hydration is helpful but if you do develop symptoms of urinary infection call your pcp immediately Pending Studies at Discharge: No Stand-Alone Forms: My [facility], Smoking Cessation Medications and DC Order Prescriptions: New potassium chloride [Klor-Con M20] 20 mEq Tablet,Er Particles/Crystals 20 meq PO BID Qty: 10 RF: 0 vancomycin 125 mg capsule 125 mg PO QID 12 Days Qty: 48 RF: 0 Continued carbamazepine [Carbatrol] 200 mg capsule, ER multiphase 12 hr 200 mg PO TID 30 Days Qty: 90 RF: 5 gabapentin 300 mg capsule 600 mg PO TID Qty: 180 RF: 3 ondansetron 8 mg tablet,disintegrating 8 mg PO DIRECTED PRN (Reason: Nausea) RF: 0 lorazepam 0.5 mg tablet 0.5 mg PO QID PRN (Reason: Anxiety) RF: 0 Discharge Orders: Discharge Order (Routine); Ordered 04/05/20 Ordered By: Dash Kaba/Other Patient Handouts: C Diff Infect Admission Data Admit Date/Time: 04/04/20 11:24 Attending Provider: Dash Moreno Admit Provider: Noam Corley Primary Care Provider: Padmini Hewitt Other Providers: Yuan Man ; Noam Corley ; [facility] Other Interventions: Discharge Summary Assessment (RN) Last Done: 04/05/20 11:52 DC Date/Time DO NOT enter until pt leaves facility: 04/05/20 13:45 Coding Level of Care Code D/C Day Management >30 mins Diagnoses C. difficile colitis A04.72 Sepsis A41.9 Sepsis type: sepsis due to unspecified organism Sepsis acute organ dysfunction status: without acute organ dysfunction Asymptomatic bacteriuria R82.71 Colostomy present Z93.3 Trigeminal neuralgia of left side of face G50.0 IBS (irritable bowel syndrome) K58.9 Anxiety F41.9 Hypokalemia E87.6
== END 2020-04-05 13:45 | disposition home health service (06) | DRG 393 ==
LOC: 2N 08:23 → ED 08:23 → 2N 13:46 → 1E 15:57 → 2N 19:06 → SUATTDRO 04-04 11:24